=== PATIENT | female | born 1970 | race Caucasian/White ===

== ENCOUNTER → 2019-02-11 11:01 | Outpatient (CLI) | payer OTHER, SELFPAY ==
[2019-02-11 12:22] LABS: Absolute Lymphocyte Count 1.29 X10^3/ul (0.83-4.51); Absolute Neutrophil Count 3.6 X10^3/uL (2.0-7.7); Basophil# 0.02 X10^3/uL; Basophil% 0.4 % (0-1); Eosinophils% 1.9 % (0-5); Hematocrit 40.5 % (37-47); Hemoglobin 13.5 g/dl (12.0-15.0); Lymphocyte # 1.29 X10^3/ul (4.0); Lymphocyte % 24.4 % (19-41); Mean Corp Hgb Conc 33.3 g/gl (32-36); Mean Corpuscular Volume 92.9 fL (81-99); Mean Platelet Vol. 8.3 fl (6.2-12.0); Monocyte% 5.7 % (0-10); Neutrophil # 3.57 X10^3/uL (2.7-7.7); Neutrophil % 67.4 % (47-70); Platelet Count 283 K/mm3 (150-450); RBC Distribution Width CV 13.2 % (11.6-14.6); Red Blood Count 4.36 M/mm3 (4.2-5.4); White Blood Count 5.3 K/mm3 (4.4-11.0)
[2019-02-11 12:27] LABS: Erythrocyte Sedimentation Rate 13 mm/hr (0-20)
[2019-02-11 12:28] LABS: POSITIVE COUNT NO; POSITIVE DIFFERENTIAL NO; POSITIVE MORPHOLOGY NO
[2019-02-11 12:55] LABS: AST(SGOT) 18 U/L (15-37); Alanine Aminotransfer ALT/SGPT 32 U/L (13-56); Albumin, Serum 3.6 g/dL (3.2-5.0); Alkaline Phosphatase 57 U/L (45-117); Anion Gap 11 (5-15); BUN 12 mg/dL (7-18); BUN/Creat Ratio 14.1 RATIO (10-20); Calcium,Total 8.5 mg/dL (8.5-10.1); Chloride 104 mmol/L (98-107); Creatinine, Serum 0.85 mg/dL (0.55-1.02); EST Glomerular Filtration Rate 76 mL/min (>60); Est Glom Filt Rate - Afr Amer 92 mL/min (>60); Ferritin 21 ng/mL (8-252); Globulin 3.7 g/dL (2.2-4.2); Glucose 128 mg/dL (74-106); Iron 102 ug/dL (50-170); Magnesium 1.8 mg/dL (1.6-2.6); Potassium 3.7 mmol/L (3.5-5.1); Protein, Total 7.3 g/dL (6.4-8.2); Sodium Level 141 mmol/L (136-145); Thyroid Stim Hormone (TSH) 1.48 uIU/mL (0.358-3.74)
[2019-02-11 12:56] LABS: Vitamin B12 628 pg/mL (211-911); Vitamin D,25 Hydroxy 21.1 ng/mL (29.95-100.01)
[2019-02-12 13:29] LABS: ANTINUCLEAR ANTIBODIES DIRECT Negative (Negative)
== END ==
PROVIDERS: Family Provider Family Medicine; PCP Family Medicine; Referring Provider Family Medicine; Visit Provider Family Medicine
DX: G62.9 Polyneuropathy, unspecified (principal)
CPT/HCPCS: 36415; 80053; 82306; 82607; 82728; 83540; 83735; 84443; 85025; 85652; 86038

== ENCOUNTER → 2019-02-13 09:10 | Outpatient (CLI) | payer OTHER, SELFPAY ==
[2019-02-13 13:06] LABS: Cholesterol 244 mg/dL (200); High Density Lipoprotein 59 mg/dL; Triglycerides 140 mg/dL; Very Low Density Lipoprotein 28 mg/dL (5-40)
== END ==
PROVIDERS: Family Provider Family Medicine; PCP Family Medicine; Referring Provider Family Medicine; Visit Provider Family Medicine
DX: Z13.220 Encounter for screening for lipoid disorders (principal); Z13.21 Encounter for screening for nutritional disorder; Z13.1 Encounter for screening for diabetes mellitus
CPT/HCPCS: 36415; 80061

== ENCOUNTER → 2019-10-17 13:37 | Outpatient (CLI) | payer OTHER, SELFPAY ==
[2019-10-17 16:35] LABS: AST(SGOT) 19 U/L (15-37); Alanine Aminotransfer ALT/SGPT 31 U/L (13-56); Albumin, Serum 3.8 g/dL (3.2-5.0); Alkaline Phosphatase 68 U/L (45-117); Bilirubin, Direct < 0.05 mg/dL (0.00-0.30); Globulin 3.4 g/dL (2.2-4.2); Protein, Total 7.2 g/dL (6.4-8.2)
== END ==
PROVIDERS: PCP Family Medicine; Referring Provider Family Medicine; Visit Provider Family Medicine
DX: B35.1 Tinea unguium (principal)
CPT/HCPCS: 36415; 80076

== ENCOUNTER → 2020-08-11 13:48 | Outpatient (CLI) | payer OTHER, SELFPAY | PROVIDERS: PCP Family Medicine; Visit Provider Family Medicine | DX: U07.1 COVID-19 (principal) | CPT/HCPCS: 87635; U0003 ==

== ENCOUNTER 2020-12-03 09:39 | Day surgery (SDC) | payer OTHER, SELFPAY ==
[2020-11-20 13:25] VITALS: BMI 33.5
[2020-12-03] VITALS (7 sets, daily range): BP systolic 130–145; BP diastolic 72–80; PULSE 81–94; RESP 14–16; TEMP 36.5–37; O2SAT 97–100; BMI 34.9
[2020-12-03] MEDS: Lactated Ringers 1,000 ML 100 ML IV (10:18)
--- NOTE | 2020-12-03 10:46 | PCM.HP.BLA ---
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 Required: No Is patient in pain?: No Allergies No Known Allergies Allergy (Verified 11/20/20 13:26) Medications aripiprazole 10 mg tablet 10 mg PO QHS tablet 11/20/20 [History Confirmed 11/20/20] aripiprazole 5 mg tablet 5 mg PO DAILY tablet 11/20/20 [History Confirmed 11/20/20] calcium carbonate-vitamin D3 600 mg(1,500 mg)-400 unit chewable tablet tablet PO 11/20/20 [History Confirmed 11/20/20] escitalopram oxalate 10 mg tablet 10 mg PO DAILY tablet 11/20/20 [History Confirmed 11/20/20] quetiapine 100 mg tablet 100 mg PO DAILY tablet 11/20/20 [History Confirmed 11/20/20] PFSH Medical History Positive colorectal cancer screening using Cologuard test (Acute) Surgical History Hx of fracture of arm (Acute) History of (Acute) Family History Father Heart disease Hypertension Mother Hypertension Heart disease Social History (Updated 11/20/20 @ 15:[address] Frankie Angeles MD) Smoking Status: Never smoker second hand exposure: No alcohol intake: never substance use type: does not use caffeine: Yes what type of physical activity do you participate in: walking frequency: 3-4 times per week HPI HPI HPI: KARMA REN, is a 49 F who presents to the office today for HPI HPI Surgical H&P: Yes HPI: KARMA REN, is a 49 F who presents to the office today for colonoscopy consultation due to positive Cologuard. The patient has never had a colonoscopy and reports no blood in her stool or abdominal pain. Patient denies family history of colon cancer. ROS General General: Yes fatigue; no weight change, appetite, colon cancer, breast cancer or weakness HEENT HEENT: Yes difficulty swallowing; no eye injury, eye surgery, swollen glands or hoarseness Endo Endocrine: No thyroid disease, diabetes mellitus, thyroid cancer, Hair loss, heat intolerance or cold intolerance Skin Skin: No rash or changing moles Breast Breast: No left breast lump, right breast lump, nipple discharge, breast pain, abnormal mammogram, abnormal US or breast enlargement Musc Musculoskeletal: No back problems, arthritis, rheumatoid arthritis, gout or joint pain Cardio Cardiovascular: No murmur, pacemaker, heart disease, atrial fibrillation, high blood pressure, heart attack, heart stent, palpitations, shortness of breat with exertion or chest pain Psych Psychiatric: Yes anxiety; no depression or hearing voices Resp Respiratory: No shortness of breath, No sleep apnea, No cough, No COPD, No asthma, No emphysema, No wheezing Gastro Gastrointestinal: No abdominal pain, No nausea or vomiting, No diarrhea, No constipation, No blood in stool, No acid reflux, No hemorrhoids, No ulcers, No gallbladder problem, No black,tarry stools Layo Hematologic: No blood thinners, No blood disorders, No bleeding, No anemia, No blood clots Neuro Neurologic: No system reviewed and no additional complaints, except as docu, No as per HPI, No abnormal walking, No abnormal hearing, No abnormal movements, No abnormal speech, No behavioral changes, No burning sensations, No confusion, No seizure-like activity, No unsteadiness, No dizziness, No localized weakness, No frequent falls, No headache(s), No lack of coordination, No loss of vision, No memory loss, No numbness, No other visual disturbances, No radiating pain, No restless legs, No sensory deficit, No fainting, No tingling, No tremor(s), No weakness, No other Exam Const General: cooperative Orientation: alert, oriented x3 Chest Breast Palpation: No nipple discharge Resp Effort & Inspection: normal respiratory effort Auscultation: clear to auscultation bilaterally Cardio Rate: regular rate Rhythm: regular rhythm Heart Sounds: no murmurs GI Inspection: non-distended Palpation: soft, nontender Assessment & Plan Problems 1. Positive colorectal cancer screening using Cologuard test R19.5 Plan I explained endoscopy in detail to the patient. I explained the risks including but not limited to stroke or heart attack with anesthesia, perforation of the GI tract, bleeding, infection. I explained that any of these could necessitate further emergency surgery. The patient understands and all questions were answered sufficiently. The patient wishes to proceed with procedure. Frankie Angeles MD Pager: [facility] [address] [place] [address] [address] [place] [address] Office: I have re-examined the patient. There are no clinical changes since date of exam.
--- NOTE | 2020-12-03 11:15 | OP.COLON_ITS ---
Patient Name: Rupert Kapoor Procedure Date: 12/03/2020 10:48 AM Date of : 1970 Age: 49 Procedure: Colonoscopy Indications: Positive Cologuard test Providers: Frankie Angeles MD Referring MD: Zion Del Toro Medicines: Monitored Anesthesia Care Patient Profile: This is a 49 year old female. Refer to note in patient chart for documentation of history and physical. Last Colonoscopy: none. The patient's first colonoscopy is today. Complications: No immediate complications. Procedure: Pre-Anesthesia Assessment: - Prior to the procedure, a History and Physical was performed, and patient medications and allergies were reviewed. The patient's tolerance of previous anesthesia was also reviewed. The risks and benefits of the procedure and the sedation options and risks were discussed with the patient. All questions were answered, and informed consent was obtained. Prior Anticoagulants: The patient has taken no previous anticoagulant or antiplatelet agents. After reviewing the risks and benefits, the patient was deemed in satisfactory condition to undergo the procedure. After I obtained informed consent, the scope was passed under direct vision. Throughout the procedure, the patient's blood pressure, pulse, and oxygen saturations were monitored continuously. The colonoscope was introduced through the anus and advanced to the cecum, identified by appendiceal orifice and ileocecal valve. The colonoscopy was performed without difficulty. The patient tolerated the procedure well. The quality of the bowel preparation was good. Scope In: 10:55:07 AM Scope Withdrawal Time 0 hours 7 minutes 4 seconds Scope Out: 11:11:56 AM Total Procedure Duration Time 0 hours 16 minutes 49 seconds Findings: Multiple small-mouthed diverticula were found in the sigmoid colon. The exam was otherwise without abnormality on direct and retroflexion views. Impression: - Diverticulosis in the sigmoid colon. - The examination was otherwise normal on direct and retroflexion views. - No specimens collected. Recommendation: - Discharge patient to home. - Resume previous diet. - Continue present medications. - Repeat colonoscopy in 10 years for screening purposes. Procedure Code(s): --- Professional --- 47766, Colonoscopy, flexible; diagnostic, including collection of specimen(s) by brushing or washing, when performed (separate procedure) Diagnosis Code(s): --- Professional --- R19.5, Other fecal abnormalities K57.30, Diverticulosis of large intestine without perforation or abscess without bleeding CPT copyright 2017 [employer]. All rights reserved. The codes documented in this report are preliminary and upon retail store associate review may be revised to meet current compliance requirements. Frankie Angeles MD 12/03/2020 11:15:13 AM This report has been signed electronically. Number of Addenda: 0 Note Initiated On: 12/03/2020 10:48 AM
--- NOTE | 2020-12-03 11:15 | OP.CCLET_ITS ---
12/03/2020 Zion Del Toro [address] [place] [address] Re : Colonoscopy procedure for [facility] Dear Dr. Del Toro This procedure was performed on December. My impressions and recommendations are as follows: Impressions : - Diverticulosis in the sigmoid colon. - The examination was otherwise normal on direct and retroflexion views. - No specimens collected. Recommendations : - Discharge patient to home. - Resume previous diet. - Continue present medications. - Repeat colonoscopy in 10 years for screening purposes. My findings are described in the full procedure note, which is enclosed. If I can be of further assistance, please feel free to contact me at Doctor phone number(s): , Work: . Sincerely, Frankie Angeles MD 12/03/2020 11:15:13 AM This report has been signed electronically.
== END 2020-12-03 12:07 | disposition home or self-care (01) ==
LOC: EN 09:39 → AC 09:40
PROVIDERS: PCP Family Medicine; Referring Provider Family Medicine; Visit Provider Surgery
PROC: 0DJD8ZZ Inspection of Lower Intestinal Tract, Via Natural or Artificial Opening Endoscopic (ICD-10-PCS; CPT 45378; principal; 2020-12-03 10:40)
DX: R19.5 Other fecal abnormalities (principal); K57.30 Diverticulosis of large intestine without perforation or abscess without bleeding
CPT/HCPCS: 45378; 87426; C9803; J7120; J2405

== ENCOUNTER → 2021-02-23 10:18 | Outpatient (CLI) | payer OTHER, SELFPAY ==
[2020-12-03 10:05] VITALS: BMI 34.9
[2021-02-23 13:06] LABS: Anion Gap 6 (5-15); BUN 12 mg/dL (7-18); BUN/Creat Ratio 11.9 RATIO (10-20); Calcium,Total 8.6 mg/dL (8.5-10.1); Chloride 105 mmol/L (98-107); Cholesterol 268 mg/dL (200); Creatinine, Serum 1.01 mg/dL (0.55-1.02); EST Glomerular Filtration Rate 62 mL/min (>60); Est Glom Filt Rate - Afr Amer 75 mL/min (>60); Glucose 88 mg/dL (74-106); High Density Lipoprotein 48 mg/dL; Potassium 3.9 mmol/L (3.5-5.1); Sodium Level 137 mmol/L (136-145); Thyroid Stim Hormone (TSH) 2.42 uIU/mL (0.358-3.74); Triglycerides 295 mg/dL; Very Low Density Lipoprotein 59 mg/dL (5-40)
[2021-02-23 13:07] LABS: Vitamin D,25 Hydroxy 45.8 ng/mL
== END ==
PROVIDERS: PCP Family Medicine; Referring Provider Family Medicine; Visit Provider Family Medicine
DX: E55.9 Vitamin D deficiency, unspecified (principal); E78.5 Hyperlipidemia, unspecified; Z13.29 Encounter for screening for other suspected endocrine disorder
CPT/HCPCS: 36415; 80048; 80061; 82306; 84443

== ENCOUNTER → 2021-03-01 18:08 | Outpatient (CLI) | payer OTHER, SELFPAY ==
[2020-12-03 10:05] VITALS: BMI 34.9
== END ==
PROVIDERS: Visit Provider Family Medicine
DX: Z20.828 Contact with and (suspected) exposure to other viral communicable diseases (principal)
CPT/HCPCS: 87635; U0005; U0003

== ENCOUNTER 2021-12-15 07:39 | Outpatient (CLI) | payer OTHER, SELFPAY ==
--- NOTE | 2021-12-15 07:55 | RAD_ITS ---
STUDY: X-RAY - ESOPHAGUS (BARIUM SWALLOW) WITH FLUOROSCOPY REASON FOR EXAM: Female, 50 years old. DYSPHAGIA TECHNIQUE: 18 view(s) of the esophagus were obtained following swallowing of barium. FLUOROSCOPY TIME (if supplied): (36 seconds) minutes/seconds COMPARISON: None. FINDINGS: There is no demonstrated esophageal foreign body. There is no demonstrated stricture or mucosal abnormality. Normal gastroesophageal junction, without a demonstrated hiatal hernia. The patient ingested a 12 mm tablet of barium without any difficulty. Normal visualized aortic arch and descending thoracic aorta. Normal visualized pulmonary parenchyma. Normal visualized osseous structures of the thorax. RAD/Esophagus Dual Contrast IMPRESSION: Normal plain film x-ray examination (barium swallow) of the esophagus. Electronically Signed: John Swann MD at 10:21 EDT ,
== END 2021-12-15 23:59 | disposition home or self-care (01) ==
LOC: RAD 07:39
PROVIDERS: PCP Family Medicine; Visit Provider Family Medicine
DX: R13.10 Dysphagia, unspecified (principal)
CPT/HCPCS: 74221

== ENCOUNTER → 2022-03-21 | Outpatient (CLI) | payer OTHER, SELFPAY ==
[2022-03-21 16:14] LABS: AST(SGOT) 25 U/L (15-37); Alanine Aminotransfer ALT/SGPT 40 U/L (13-56); Albumin, Serum 3.7 g/dL (3.2-5.0); Alkaline Phosphatase 64 U/L (45-117); Anion Gap 11 (5-15); BUN 9 mg/dL (7-18); BUN/Creat Ratio 9.7 RATIO (10-20); Calcium,Total 8.6 mg/dL (8.5-10.1); Chloride 100 mmol/L (98-107); Cholesterol 254 mg/dL (200); Creatinine, Serum 0.93 mg/dL (0.55-1.02); EST Glomerular Filtration Rate 68 mL/min (>60); Est Glom Filt Rate - Afr Amer 82 mL/min (>60); Globulin 3.6 g/dL (2.2-4.2); Glucose 90 mg/dL (74-106); High Density Lipoprotein 45 mg/dL; Protein, Total 7.3 g/dL (6.4-8.2); Sodium Level 138 mmol/L (136-145); Thyroid Stim Hormone (TSH) 2.03 uIU/mL (0.358-3.74); Triglycerides 176 mg/dL; Very Low Density Lipoprotein 35 mg/dL (5-40)
[2022-03-21 22:50] LABS: Vitamin D,25 Hydroxy 59.8 ng/mL
== END | disposition home or self-care (01) ==
LOC: MFPLAB 11:55
PROVIDERS: PCP Family Medicine; Visit Provider Family Medicine
DX: E55.9 Vitamin D deficiency, unspecified (principal); E78.5 Hyperlipidemia, unspecified
CPT/HCPCS: 36415; 80053; 80061; 82306; 84443

== ENCOUNTER → 2022-12-16 | Outpatient (CLI) | payer OTHER, SELFPAY ==
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
== END | disposition home or self-care (01) ==
LOC: RAD 12:48
PROVIDERS: PCP Family Medicine; Referring Provider Family Medicine; Visit Provider Family Medicine
DX: R13.10 Dysphagia, unspecified (principal)
CPT/HCPCS: 74230; 92611

== ENCOUNTER → 2023-02-10 | Outpatient (CLI) | payer OTHER, SELFPAY ==
[2023-02-10 11:49] LABS: Anion Gap 8 (5-15); BUN 14 mg/dL (7-18); BUN/Creat Ratio 13.3 RATIO (10-20); Calcium,Total 9.2 mg/dL (8.5-10.1); Chloride 99 mmol/L (98-107); Cholesterol 244 mg/dL (200); Creatinine, Serum 1.05 mg/dL (0.55-1.02); EST Glomerular Filtration Rate 59 mL/min (>60); Est Glom Filt Rate - Afr Amer 71 mL/min (>60); Glucose 81 mg/dL (74-106); High Density Lipoprotein 60 mg/dL; Potassium 3.6 mmol/L (3.5-5.1); Sodium Level 136 mmol/L (136-145); Triglycerides 243 mg/dL; Very Low Density Lipoprotein 49 mg/dL (5-40)
== END | disposition home or self-care (01) ==
LOC: MFPLAB 08:18
PROVIDERS: PCP Family Medicine; Visit Provider Family Medicine
DX: E78.5 Hyperlipidemia, unspecified (principal)
CPT/HCPCS: 36415; 80048; 80061

== ENCOUNTER → 2023-04-26 | Outpatient (CLI) | payer OTHER, SELFPAY ==
--- NOTE | 2023-04-26 17:23 | RAD_ITS ---
STUDY: X-RAY - RIGHT KNEE REASON FOR EXAM: Female, 52 years old. Pain and swelling. TECHNIQUE: 4 view(s) of the knee. COMPARISON: None. FINDINGS: Normal visualized distal femur. Normal visualized proximal tibia and fibula. Normal proximal tibiofibular articulation. Mild medial compartmental arthrosis. Normal lateral femorotibial compartment. Mild arthrosis of the lateral femorotibial compartment. Large joint effusion. RAD/Knee 4 or More Views IMPRESSION: Medial and lateral femorotibial compartment arthrosis with large suprapatellar joint effusion. Electronically Signed: Mark Beaver MD at 16:09 EDT ,
== END | disposition home or self-care (01) ==
PROVIDERS: PCP Family Medicine; Referring Provider Family Medicine; Visit Provider Family Medicine
DX: M25.569 Pain in unspecified knee (principal)
CPT/HCPCS: 73564

== ENCOUNTER → 2023-05-30 | Outpatient (CLI) | payer OTHER, SELFPAY ==
[2023-05-30 17:02] LABS: Bacteria 0 SEEN /hpf (None Seen); Mucous, Urine 0 SEEN /hpf (<or=2+); Red Blood Cells-Urine 0 SEEN /hpf (0-5); Squamous Epithelial Cells - UA 0 SEEN /hpf (5-10); White Blood Cells 0 SEEN /hpf (0-5)
[2023-05-30 17:32] LABS: Absolute Lymphocyte Count 1.67 X10^3/uL (0.83-4.51); Absolute Neutrophil Count 2.7 X10^3/uL (2.0-7.7); Basophil# 0.02 X10^3/uL; Basophil% 0.4 % (0-1); Eosinophil# 0.08 X10^3/uL; Eosinophils% 1.6 % (0-5); Hematocrit 34.8 % (37-47); Lymphocyte # 1.67 X10^3/ul (0.83-4.51); Lymphocyte % 33.4 % (19-41); Mean Corp Hgb Conc 31.6 g/dL (32-36); Mean Corpuscular Hgb 29.9 pg (27.0-32.0); Mean Corpuscular Volume 94.6 fL (81-99); Monocyte# 0.48 X10^3/uL; Monocyte% 9.6 % (0-10); NRBC Flagged by Analyzer 0 % (0-5); Neutrophil # 2.74 X10^3/uL (2.7-7.7); Neutrophil % 54.8 % (47-70); Platelet Count 373 K/mm3 (150-450); RBC Distribution Width CV 12.8 % (11.6-14.6); RBC Distribution Width SD 44.3 fl (35.1-43.9); Red Blood Count 3.68 M/mm3 (4.2-5.4)
[2023-05-30 17:33] LABS: Color, Urine Yellow (Yellow); Glucose, Dipstick Normal (Normal); Ketone-Dipstick Negative (Negative); Leukocyte Esterase-Dipstick Negative /ul (Negative); Nitrite-Dipstick Negative (Negative); Occult Blood-Urine 50 /ul (Negative); Protein-Dipstick Negative (Negative); Urine Bilirubin Dipstick Negative (Negative); Urine Clarity Clear (Clear); Urine Urobilinogen Normal (Normal); Urine pH 6.5 (5.0 - 8.0)
[2023-05-30 18:28] LABS: ALB/GLOB Ratio 1.1 RATIO (0.9-2.4); AST(SGOT) 30 U/L (15-37); Alanine Aminotransfer ALT/SGPT 41 U/L (13-56); Albumin, Serum 3.6 g/dL (3.2-5.0); Alkaline Phosphatase 59 U/L (45-117); Anion Gap 6 (5-15); BUN 13 mg/dL (7-18); BUN/Creat Ratio 13.1 RATIO (10-20); Calcium,Total 8.3 mg/dL (8.5-10.1); Chloride 105 mmol/L (98-107); EST Glomerular Filtration Rate 62 mL/min (>60); Est Glom Filt Rate - Afr Amer 75 mL/min (>60); Globulin 3.3 g/dL (2.2-4.2); Glucose 91 mg/dL (74-106); Potassium 3.7 mmol/L (3.5-5.1); Protein, Total 6.9 g/dL (6.4-8.2); Sodium Level 139 mmol/L (136-145); Thyroid Stim Hormone (TSH) 2.17 uIU/mL (0.358-3.74)
[2023-05-31 10:48] LABS: Ferritin 8 ng/mL (8-252); Iron 36 ug/dL (50-170)
== END | disposition home or self-care (01) ==
LOC: MTLAB 16:59
PROVIDERS: PCP Family Medicine; Referring Provider Family Medicine; Visit Provider Family Medicine
DX: E55.9 Vitamin D deficiency, unspecified (principal); R60.9 Edema, unspecified; I10 Essential (primary) hypertension
CPT/HCPCS: 36415; 80053; 81001; 82728; 83540; 84443; 85025

== ENCOUNTER → 2023-06-14 | Outpatient (CLI) | payer OTHER, SELFPAY ==
--- NOTE | 2023-06-14 17:21 | RAD_ITS ---
INDICATION: pain. forefoot. EXAMINATION/TECHNIQUE: X-RAY - LEFT XR Foot 3 VIEWS COMPARISON: FINDINGS: SOFT TISSUES: No soft tissue swelling or gas. No radiopaque foreign body. BONES/JOINTS: No acute fracture or subluxation.. Normal alignment. Preservation of the joint space.. No sclerotic or destructive changes observed. RAD/Foot min 3 Views IMPRESSION: No acute bony injury. Electronically Signed: Luis Alfaro DO at 18:16 EDT ,
== END | disposition home or self-care (01) ==
PROVIDERS: PCP Family Medicine; Referring Provider Family Medicine; Visit Provider Family Medicine
DX: M77.42 Metatarsalgia, left foot (principal)
CPT/HCPCS: 73630

== ENCOUNTER → 2023-06-23 | Outpatient (CLI) | payer OTHER, SELFPAY ==
[2023-06-23 17:38] LABS: Absolute Lymphocyte Count 1.83 X10^3/uL (0.83-4.51); Absolute Neutrophil Count 5.2 X10^3/uL (2.0-7.7); Basophil# 0.05 X10^3/uL; Basophil% 0.6 % (0-1); Eosinophil# 0.06 X10^3/uL; Eosinophils% 0.8 % (0-5); Hemoglobin 12.4 g/dL (12.0-15.0); Lymphocyte # 1.83 X10^3/ul (0.83-4.51); Lymphocyte % 23.6 % (19-41); Mean Corpuscular Hgb 29.5 pg (27.0-32.0); Mean Platelet Vol. 8.6 fl (6.2-12.0); Monocyte# 0.64 X10^3/uL; Monocyte% 8.2 % (0-10); NRBC Flagged by Analyzer 0 % (0-5); Neutrophil # 5.16 X10^3/uL (2.7-7.7); Neutrophil % 66.5 % (47-70); Platelet Count 374 K/mm3 (150-450); RBC Distribution Width CV 14.2 % (11.6-14.6); RBC Distribution Width SD 49.3 fl (35.1-43.9); Red Blood Count 4.21 M/mm3 (4.2-5.4); White Blood Count 7.8 K/mm3 (4.4-11.0)
[2023-06-23 18:07] LABS: Ferritin 24 ng/mL (8-252); Iron 100 ug/dL (50-170)
== END | disposition home or self-care (01) ==
LOC: MTLAB 14:15
PROVIDERS: PCP Family Medicine; Referring Provider Family Medicine; Visit Provider Family Medicine
DX: E55.9 Vitamin D deficiency, unspecified (principal); D64.9 Anemia, unspecified
CPT/HCPCS: 36415; 82728; 83540; 85025

== ENCOUNTER 2023-07-28 08:00 | Outpatient (RCR) | payer OTHER, SELFPAY ==
--- NOTE | 2023-05-04 18:01 | HP.PTEVAL_ITS ---
Patient's Visit Information Visit Information Visit Information: KARMA REN is a 52 year old F referred to Physical Therapy by Dr. Zion Del Toro MD with a diagnosis of RIGHT KNEE PAIN ,PES ASERINE ,SUPRAPATELLAR. Date of Evaluation: 05/04/23 Physical Therapist: Cornelio Morales, PT, Cert MDT, OCS Visit Plan Frequency: 2x /Week Duration: 4 Weeks Plan: PT INTERVENTIONS ROM/FLEXABLITY ,STRENGTHENING QIADS/HAMS/HIP ,FUNCTIONAL STRENGTHNEING AND MODALTIES Subjective Subjective: This 52 y/o female presents to physical therapy with right knee pain . Patient has had knee pain ~ 3 weeks and April [address] and unable to place any pressure or walk. Patient has had edema in knee 3weeks. Patient had to use crutches for ~ 1week . Patient weaned from crutches. Patient seen DR x-rays meloxicam and provided prednisone due to swelling. May try MRI if doesn't get better. Patient did not having looking or catching in knee. Aggravating unable to squat and kneeling ,extending walking ,stairs one step at time. Alleviating ice elevated and medication ,brace . Denies paresthesia/tingling in left leg. Pain described as ache affects sleeping. Patient pain affects ADLS ,housework and job demands. Patient goals to decrease pain. 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 SOCIAL: Pain Right Knee: Pain Intensity (Out of 10): 8 Pain Intensity Range: 10 Objective Objective: POSTURE: mild forward posture knee slightly flexed NEURO: denies paresthesia/tingling PALAPTION: joint line tenderness medial EFFUSION: mild effusion global knee FLEXABLITY: hamstrings min tight AROM: 0-110 supine knee flexion MMT: peak force-quads 22.1,hamstrings 21.8 ,hip abduction 23.8 GAIT: ambulates with reciprocal pattern decrease stance right side STAIRS: one step at time Special Tests R Knee Colt - Meniscus: Negative R Knee Apley - Meniscus: Negative R Knee Anterior Drawer - ACL: Negative R Knee Posterior Drawer - PCL: Negative R Knee Valgus - MCL: Negative R Knee Varus - LCL: Negative R Knee Patellar Apprehension - PFS: Positive R Knee Patellar Grind - PFS: Negative Comments: hyperflexion OP pain Balance/Special Test Scores Lower Extremity Functional Score: 36 Goals Goal 1:: Patient to be I with HEP knee Goal Time Frame: 4-6 Weeks Goal 2:: Patient to improve AROM knee flexion 130 degrees to alternate with steps Goal Time Frame: 4-6 Weeks Goal 3:: Patient to improve peak force quads/hams/hip by 5-10 # to improve function Goal Time Frame: 4-6 Weeks Goal 4:: Patient to improve LFES score by 10 points to improve QOL and function Goal Time Frame: 4-6 Weeks Goal 5:: Patient to demonstrate 50% improvement with increase function and ADLS Goal Time Frame: 4-6 Weeks Rehabilitation Potential Physical Therapy Diagnosis: This patient has right knee pain with edema ,pain ,decrease ROM ,and strength impairs gait and function thus benefit from skilled PT Rehabilitation Potential: Good Anticipated Interventions Patient/Client Instruction: Educate patient on: Condition and Plan of Care For the Purpose of:: To decrease pain, To increase ROM, To improve muscle performance and motor function, To improve ability to perform ADL's, To increase tolerance to activity/condition/position, To improve performance and independence with ADL's, To improve ability of physical actions for home/community/work/leisure, To improve health of tissue, To decrease soft tissue restriction, To increase flexibility/ROM and To improve endurance Therapeutic Exercise to Include: Strength training, Endurance training, Balance training, Flexibilty training and Active ROM Comment: QUADS/HAMS/HIP For the Purpose of:: To decrease pain, To increase ROM, To improve muscle performance and motor function, To improve ability to perform ADL's, To increase tolerance to activity/condition/position, To improve ability of physical actions for home/community/work/leisure, To improve health of tissue, To decrease soft tissue restriction, To increase flexibility/ROM and To prevent re-injury TENS: Yes IF ES: Yes Cryotherapy (ice pack, ice massage): Yes Thermo therapy (hot pack): Yes Ultrasound (thermal/non thermal): Yes For the Purpose of:: To decrease pain, To decrease swelling/inflammation, To increase ROM, To improve health of tissue, To decrease soft tissue restriction and To increase flexibility/ROM Text: Thank you for the opportunity to evaluate your patient. For Medicare and Medicare HMO plans, please review the plan of care and approve it. It will need to be FAXED BACK to us at [phone] for Medicare purposes. For Medicare only, by signing this I certify the plan of care. Please let me know if there are questions or concerns regarding this plan of care. Physician Signature: Date:
--- NOTE | 2023-07-28 08:21 | HP.PTDCSUM_ITS ---
Discharge Summary D/C summary: It has been my pleasure to treat KARMA REN referred by Dr. Zion Del Toro MD, with the diagnosis of RIGHT KNEE PAIN ,PES ASERINE ,SUPRAPATELLAR for a total of 24 visit(s). Discharge Date: 07/28/23 Please see the following information for a summary of their discharge status. Subjective Subjective: Doing good.. Ready for d/c Pain Right Knee: Pain Intensity (Out of 10): 0 Overall Improvement % Improvement: 100 Objective Objective/Function: POSTURE: mild forward posture knee slightly flexed NEURO: denies paresthesia/tingling PALAPTION: joint line tenderness medial EFFUSION: mild effusion global knee FLEXABLITY: hamstrings min tight AROM: 0-135 supine knee flexion MMT: peak force-quads 65.4,hamstrings 50.1 ,hip abduction 30.8 GAIT: ambulates with reciprocal pattern STAIRS: alternating steps Goals Goal 1:: Patient to be I with HEP knee Goal Progress: Goal Met Goal 2:: Patient to improve AROM knee flexion [address] eps Goal Progress: Goal Met Goal 3:: Patient to improve peak force quads/hams/hip by 5-10 # to improve function Goal Progress: Goal Met Goal 4:: Patient to improve LFES score by 10 points to improve QOL and function Goal Progress: Goal Met Goal 5:: Patient to demonstrate 50% improvement with increase function and ADLS Goal Progress: Goal Met Plan Plan: D/C TO HEP D/C Information Discharge Comments: HEP d/c sentence: If there are questions or concerns regarding this patient's physical therapy, please feel free to call me at [phone]. Thank you for the referral of this patient. Sincerely, Cornelio Morales, PT, Cert MDT, OCS Balance/Gait/Functional tests Balance/Special Test Scores Lower Extremity Functional Score: 36 Improvement % Improvement: 100
== END 2023-07-28 10:09 | disposition home or self-care (01) ==
LOC: PT 08:00
PROVIDERS: PCP Family Medicine; Referring Provider Family Medicine; Visit Provider Family Medicine
DX: M25.561 Pain in right knee (principal)
CPT/HCPCS: 97014; 97110; 97162; 97530; G0283

== ENCOUNTER → 2023-12-11 | Outpatient (CLI) | payer OTHER, SELFPAY ==
[2023-12-11 12:56] LABS: Vitamin D,25 Hydroxy 65.4 ng/mL
[2023-12-11 13:01] LABS: Anion Gap 6 (5-15); BUN 16 mg/dL (7-18); BUN/Creat Ratio 15.1 RATIO (10-20); Calcium,Total 9.6 mg/dL (8.5-10.1); Chloride 101 mmol/L (98-107); Cholesterol 292 mg/dL (200); Creatinine, Serum 1.06 mg/dL (0.55-1.02); EST Glomerular Filtration Rate 58 mL/min (>60); Est Glom Filt Rate - Afr Amer 70 mL/min (>60); Ferritin 12 ng/mL (8-252); Glucose 97 mg/dL (74-106); High Density Lipoprotein 55 mg/dL; Iron 98 ug/dL (50-170); Potassium 3.8 mmol/L (3.5-5.1); Sodium Level 136 mmol/L (136-145); Triglycerides 191 mg/dL; Very Low Density Lipoprotein 38 mg/dL (5-40)
== END | disposition home or self-care (01) ==
LOC: MFPLAB 10:34
PROVIDERS: PCP Family Medicine; Visit Provider Family Medicine
DX: D64.9 Anemia, unspecified (principal); I10 Essential (primary) hypertension; E55.9 Vitamin D deficiency, unspecified
CPT/HCPCS: 36415; 80048; 80061; 82306; 82728; 83540

== ENCOUNTER → 2024-06-04 | Outpatient (CLI) | payer OTHER, SELFPAY ==
[2024-06-04 16:41] LABS: Mucous, Urine 0 SEEN /hpf (<or=2+)
[2024-06-04 17:53] LABS: Hematocrit 36.5 % (37-47); Hemoglobin 11.9 g/dL (12.0-15.0); Mean Corp Hgb Conc 32.6 g/dL (32-36); Mean Corpuscular Volume 91.9 fL (81-99); Mean Platelet Vol. 8.3 fl (6.2-12.0); Platelet Count 383 K/mm3 (150-450); RBC Distribution Width CV 13.3 % (11.6-14.6); RBC Distribution Width SD 45.5 fl (35.1-43.9); Red Blood Count 3.97 M/mm3 (4.2-5.4); White Blood Count 6.4 K/mm3 (4.4-11.0)
[2024-06-04 17:56] LABS: Color, Urine Yellow (Yellow); Glucose, Dipstick Normal (Normal); Ketone-Dipstick Negative (Negative); Leukocyte Esterase-Dipstick Negative /ul (Negative); Nitrite-Dipstick Negative (Negative); Occult Blood-Urine 10 /ul (Negative); Protein-Dipstick Negative (Negative); Specific Gravity, Urine 1.015 (1.002-1.030); Urine Bilirubin Dipstick Negative (Negative); Urine Clarity Clear (Clear); Urine Urobilinogen Normal (Normal); Urine pH 6.5 (5.0 - 8.0)
[2024-06-04 18:19] LABS: Bacteria RARE /hpf (None Seen)
[2024-06-04 18:21] LABS: Red Blood Cells-Urine 0-5 SEEN /hpf (0-5); Squamous Epithelial Cells - UA 5-10 SEEN /hpf (5-10); White Blood Cells 0-5 SEEN /hpf (0-5)
[2024-06-04 18:40] LABS: Anion Gap 6 (5-15); BUN 16 mg/dL (7-18); BUN/Creat Ratio 14.3 RATIO (10-20); Calcium,Total 9.5 mg/dL (8.5-10.1); Chloride 100 mmol/L (98-107); Creatinine, Serum 1.12 mg/dL (0.55-1.02); EST Glomerular Filtration Rate 54 mL/min (>60); Est Glom Filt Rate - Afr Amer 65 mL/min (>60); Glucose 89 mg/dL (74-106); Potassium 3.8 mmol/L (3.5-5.1); Sodium Level 136 mmol/L (136-145)
== END | disposition home or self-care (01) ==
LOC: MTLAB 16:36
PROVIDERS: PCP Family Medicine; Referring Provider Family Medicine; Visit Provider Family Medicine
DX: R60.9 Edema, unspecified (principal)
CPT/HCPCS: 36415; 80048; 81001; 84443; 85027

== ENCOUNTER → 2024-06-18 | Outpatient (CLI) | payer OTHER, SELFPAY ==
[2024-06-18 18:06] LABS: Anion Gap 6 (5-15); BUN 12 mg/dL (7-18); BUN/Creat Ratio 10.4 RATIO (10-20); Calcium,Total 9.3 mg/dL (8.5-10.1); Chloride 100 mmol/L (98-107); Creatinine, Serum 1.15 mg/dL (0.55-1.02); EST Glomerular Filtration Rate 52 mL/min (>60); Est Glom Filt Rate - Afr Amer 63 mL/min (>60); Glucose 93 mg/dL (74-106); Potassium 3.6 mmol/L (3.5-5.1); Sodium Level 136 mmol/L (136-145)
== END | disposition home or self-care (01) ==
LOC: MFPLAB 16:14
PROVIDERS: PCP Family Medicine; Visit Provider Family Medicine
DX: R60.9 Edema, unspecified (principal)
CPT/HCPCS: 36415; 80048

== ENCOUNTER → 2025-04-08 | Outpatient (CLI) | payer OTHER, SELFPAY ==
[2025-04-08 10:54] LABS: Mucous, Urine 0 SEEN /hpf (<or=2+); Red Blood Cells-Urine 0 SEEN /hpf (0-5); Squamous Epithelial Cells - UA 0 SEEN /hpf (5-10)
[2025-04-08 12:35] LABS: Color, Urine Straw (Yellow); Glucose, Dipstick Normal (Normal); Ketone-Dipstick Negative (Negative); Leukocyte Esterase-Dipstick Negative /ul (Negative); Nitrite-Dipstick Negative (Negative); Occult Blood-Urine 25 /ul (Negative); Protein-Dipstick Negative (Negative); Specific Gravity, Urine 1.005 (1.002-1.030); Urine Bilirubin Dipstick Negative (Negative)
[2025-04-08 12:51] LABS: Hematocrit 38.9 % (37-47); Hemoglobin 12.4 g/dL (12.0-15.0); Immature Granulocytes Count 0.070 X10^3/uL (0.0-0.0); Mean Corp Hgb Conc 31.9 g/dL (32-36); Mean Corpuscular Volume 86.1 fL (81-99); Mean Platelet Vol. 8.8 fl (6.2-12.0); NRBC Flagged by Analyzer 0 % (0-5); POSITIVE MORPHOLOGY YES; Platelet Count 246 K/mm3 (150-450); RBC Distribution Width CV 16.9 % (11.6-14.6); RBC Distribution Width SD 52.6 fl (35.1-43.9); Red Blood Count 4.52 M/mm3 (4.2-5.4); White Blood Count 5.6 K/mm3 (4.4-11.0)
[2025-04-08 12:57] LABS: Differential Indicated SCAN CRITERIA MET
[2025-04-08 13:16] LABS: AST(SGOT) 290 U/L (<=31); Alanine Aminotransfer ALT/SGPT 469 U/L (<=34); Albumin, Serum 4.3 g/dL (3.5-5.0); Alkaline Phosphatase 190 U/L (35-104); Anion Gap 14 (5-15); BUN 13 mg/dL (4-19); BUN/Creat Ratio 12.5 RATIO (10-20); CORTISOL AM 17.10 ug/dL (6.02-18.40); Calcium,Total 9.6 mg/dL (7.6-11.0); Carbon Dioxide 25.8 mmol/L (21.0-32.0); Chloride 98 mmol/L (98-108); Cholesterol 245 mg/dL (<=200); Ferritin 97 ng/mL (22-378); Follicle Stimulating Hormone 35.2 mIU/mL; Globulin 3.5 g/dL (2.2-4.2); Glucose 98 mg/dL (70-99); Low Density Lipoprotein Calc. 162 mg/dL; Potassium 3.8 mmol/L (3.3-5.1); Triglycerides 193 mg/dL; Very Low Density Lipoprotein 39 mg/dL (5-40); Vitamin B12 1747 pg/mL (180-914); Vitamin D,25 Hydroxy 97.2 ng/mL (30-100); cholesterol:hdl ratio screen 5.57
[2025-04-08 13:38] LABS: CRP 12.50 mg/L (0.0-3.0)
[2025-04-08 13:53] LABS: Iron 73 ug/dL (50-170)
[2025-04-09 14:08] LABS: ANTINUCLEAR ANTIBODIES DIRECT Negative (Negative)
== END | disposition home or self-care (01) ==
LOC: MFPLAB 10:08
PROVIDERS: PCP Family Medicine; Referring Provider Family Medicine; Visit Provider Family Medicine
DX: R31.9 Hematuria, unspecified (principal); R74.8 Abnormal levels of other serum enzymes; M25.50 Pain in unspecified joint; D64.9 Anemia, unspecified; R23.2 Flushing; E78.5 Hyperlipidemia, unspecified
CPT/HCPCS: 36415; 80053; 80061; 81001; 82306; 82533; 82607; 82728; 82977; 83001; 83002; 83540; 84443; 85025; 85652; 86038; 86140

== ENCOUNTER → 2025-04-12 | Outpatient (CLI) | payer OTHER, SELFPAY ==
--- NOTE | 2025-04-12 07:34 | US_ITS ---
PROCEDURE: ABDOMEN LIMITED 04/12/2025 REASON FOR EXAM: ELEVATED LIVER ENZYMES COMPARISON: None FINDINGS: Liver: Diffusely echogenic suggesting fatty infiltration. Mild hepatomegaly. The liver measures 18.7 cm. Gallbladder: No stones sludge wall thickening or tenderness. Common bile duct: Normal measuring 3.1 mm . Pancreas: Normal Other: Visualized portions of the right kidney are unremarkable. No right upper quadrant ascites. US/Abdomen Limited IMPRESSION: Fatty infiltration of the liver. Mild hepatomegaly. Reading Location: [place] [id number]
--- NOTE | 2025-04-12 07:34 | US_ITS ---
PROCEDURE: ABDOMEN LIMITED 04/12/2025 REASON FOR EXAM: ELEVATED LIVER ENZYMES COMPARISON: None FINDINGS: Liver: Diffusely echogenic suggesting fatty infiltration. Mild hepatomegaly. The liver measures 18.7 cm. Gallbladder: No stones sludge wall thickening or tenderness. Common bile duct: Normal measuring 3.1 mm . Pancreas: Normal Other: Visualized portions of the right kidney are unremarkable. No right upper quadrant ascites. US/Abdomen Limited IMPRESSION: Fatty infiltration of the liver. Mild hepatomegaly. Reading Location: [place] [id number]
--- OUTSIDE RECORDS SUMMARY | 2025-04-12 07:35 | XMS RPT_ITS | CCD ---
Author Organization [facility] COMM[employer]CIAL LOAN OFFICER [facility] Care Team Providers Care 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 Name Role Phone Vickey Del Toro MD Primary Care Provider VICKEY DEL TORO Referring Unavail able VICKEY DEL TORO Primary Care Unavail able Vickey Del Toro MD Primary Care Provide r Vickey Del Toro MD Primary Care Provider VICKEY DEL TORO Primary Care UnavailGEORGIA Olivarez Referring Unavailable VICKEY DEL TORO Primary Care UnavailGEORGIA Olivarez Attending Unavailable VICKEY DEL TORO Primary Care UnavailANDRE Perez Attending Unavailable ANDRE WILD Attending Unavailable VICKEY DEL TORO Primary Care Unavailabl Vickey Holbrook Attending Unavailable Vickey Del Toro Referring Unavailable Vickey Del Toro Primary Care Unavailable Kian Baker Attending Unavailable Vickey Del Toro Primary Care Unavailable Kian Baker Attending Unavailable Vickey Del Toro Primary Care Unavailable Kian Baker Attending Unavailable Vickey Del Toro Primary Care Unavailable Kian Baker Attending Unavailable Vickey Del Toro Primary Care Unavailable Kian Baker Attending Unavailable Katey, Shivaophmacario Primary Care Unavailable Kian Baker Attending Unavailable Vickey Del Toro Primary Care Unavailable Vickey Del Toro Attending Unavailable Vickey Del Toro Referring Unavailable Vickey Del Toro Primary Care Unavailable Vickey Del Toro Attending Unavailable Vickey Del Toro Primary Care Unavailable Vickey Del Toro Attending Unavailable Vickey Del Toro Referring Unavailable Vickey Del Toro Primary Care Unavailable Allergies Allergy Classification Reported Allergen(s) Allergy Type Date of Onset Reaction(s) Facility (1 source) ALLERGIES NOT ON FILE; Translations: [ALLERGIES NOT ON FILE] Propensity to adverse reactions (disorder) [facility] 2 Repository Medications Current Medications Medication Drug Class(es) Dates Sig (Normalized) Sig (Original) ARIPiprazole 15 mg oral tablet (18 sources) Atypical Antipsychotic Start: 11-25-2023 take 1 tablet by mouth once daily ARIPiprazole (ABILIFY) 15 mg tablet Take 15 mg by mouth once daily. 11/25/2023 Active Start: 11-20-2020 take 10 mg by mouth at bedtime Aripiprazole Active 10 MG PO AT BEDTIME November 20, 2020 1:27pm Start: 11-20-2020 take 5 mg by mouth once daily Aripiprazole Active 5 MG PO DAILY November 20, 2020 1:27pm Start: 06-10-2019 End: 12-29-2023 ARIPiprazole (ABILIFY) 5 mg tablet 15 mg. 0 06/10/2019 12/29/2023 Discontinued Comment on above: 15 mg. calcium carbonate 1500 mg / cholecalciferol 800 unt chewable tablet (15 sources) Vitamin D Start: 11-20-2020 take 1 tablet by mouth once daily Calcium Carbonate-Vitamin D3 (Calcium 600 With Vitamin D3) 600 mg(1,500mg) -400 unit tablet,chewable Active 1 TABLET PO DAILY November 20, 2020 1:30pm Start: 03-19-2012 take 1 tablet by mio th twice daily calcium carbonate 600 mg-cholecalciferol 200 units (CALCIUM 600 + D,3,) 600 mg(1,500mg) -200 unit Tab Take 1 tablet by mouth twice daily. 0 03/19/2012 Active Comment on above: Take 1 tablet by mio th twice daily. cholecalciferol 0.075 mg ora l tablet (13 sources) Vitamin D Cholecalciferol, Vitamin D3, 3,000 unit tab Take by mouth once daily. Active Cholecalciferol, Vitamin D3, 3,000 unit tab Take by mouth. 0 Active Comment on above: Take by mouth. Cholecalciferol (Vitamin D3) (Vitamin D3) 5,000 UNIT capsule (2 sources) Start: take 1 tablet by mouth once daily Cholecalciferol (Vitamin D3) (Vitamin D3) 5,000 UNIT capsule Active 1 TABLET PO DAILY November 27, 2020 1:28pm Start: 11-27-2020 take 1 tablet by mio th once daily Cholecalciferol (Vitamin D3) (Vitamin D3) 5,000 UNIT capsule Active 1 TABLET PO DAILY November 27, 2020 12:00am escitalopram 20 mg oral tablet (16 sources) Serotonin Reuptake Inhibitor Start: 11-28-2023 take 1 tablet by mouth once daily escitalopram oxalate (LEXAPRO) 20 mg tablet Take 20 mg by mouth once daily. 11/28/2023 Active Start: 06-10-2019 End: 12-29-2023 escitalopram oxalate (LEXAPR O) 10 mg tablet hydroCHLOROthiazide 25 mg oral tablet (11 sources) Thiazide Diuretic Start: 12-22-2024 take 1 tablet by mouth once daily hydroCHLOROthiazide 25 mg tablet Take 1 tablet by mouth once daily. 12/22/2024 Active Start: 12-01-2023 End: 01-10-2025 take 1 capsule by mouth once hydroCHLOROthiazide 12.5 mg capsule Take 1 capsule by mouth every afternoon. 12/01/2023 01/10/2025 Discontinued (Other) losartan potassium 100 mg oral tablet (3 sources) Angiotensin 2 Receptor Annia Start: 01-02-2025 take 1 tablet by mouth once daily losartan (COZAAR) 100 mg tablet Take 1 tablet by mouth once daily. 01/02/2025 Active Multivitamin preparation (2 sources) Start: 11-27-2020 Multivitamin Active 1 EACH PO DAILY November 27, 2020 1:28pm Start: 11-27-2020 Multivitamin A ctive 1 EACH PO DAILY November 27, 2020 12:00am pantoprazole 40 mg delayed release oral tablet (10 sources) Proton Pump Inhibitor Start: 12-04-2023 take 1 tablet by mouth once daily at breakfast pantoprazole DR (PROTONIX) 40 mg tablet TAKE 1 TABLET BY MOUTH ONCE DAILY BEFORE MORNING MEAL 12/04/2023 Active QUEtiapine 100 mg oral tablet (11 sources) Atypical Antipsychotic Start: 12-17-2020 End: 03-04-2024 QUEtiapine (SEROQUEL) 100 mg tablet 150 mg. 0 12/17/2020 03/04/2024 Discontinued Start: 11-20-2020 take 100 mg by mouth once khalida y Quetiapine Active 100 MG PO DAILY November 20, 2020 1:26pm Comment on above: 150 mg. tranexamic acid 650 mg oral tablet (11 sources) Antifibrinolytic Agent Start: 09-01-20 End: 04-10-20 take 2 tablets by mouth every eight hours as needed tranexamic acid (LYSTEDA) 650 mg tablet Take 2 tablets by mouth three times daily as needed (heavy menstrual bleeding) for up to 5 days. 30 tablet 11 04/05/2022 Active Comment on above: Take 2 tablets by mo uth three times daily as needed (heavy menstrual bleeding) for up to 5 days. traZODone hydrochloride 100 mg oral tablet (10 sources) Serotonin Reuptake Inhibitor Start: 11-28-19 take 1 tablet by mouth once daily at bedtime traZODone (DESYREL) 100 mg tablet Take 100 mg by mouth daily at bedtime. 11/28/2023 Active Completed/Discontinued Medications Medication Drug Class(es) Dates Sig (Normalized) Sig (Original) lisinopril 40 mg oral tablet (8 sources) Angiotensin Converting Enzyme Inhibitor Start: 12-01-2023 End: 01-10-2025 take 1 tablet by mouth once lisinopril (ZESTRIL) 40 mg tablet Take 1 tablet by mouth every afternoon. 12/01/2023 01/10/2025 Discontinued (Other) meloxicam 15 mg oral tablet (8 sources) Nonsteroidal Anti-inflammatory Drug Start: 12-01-2023 End: 01-10-2025 take 1 tablet by mouth once meloxicam (MOBIC) 15 mg tablet Take 1 tablet by mouth every afternoon. 12/01/2023 01/10/2025 Discontinued (Other) multivits w-ca,fe,other min(ONE-A-DAY WOMENS FORMULA 27 MG-0.4 MG TAB) (11 sources) Start: 06-08-2009 End: 01-10-2025 multivits w-ca,fe,other min(ONE-A-DAY WOMENS FORMULA 27 MG-0.4 MG TAB) Take by mouth once daily. 0 06/08/2009 01/10/2025 Discontinued (Other) Start: 06-08-2009 multivits w-ca ,fe,other min(ONE-A-DAY WOMENS FORMULA 27 MG- 0.4 MG TAB) Take by mouth once daily. 0 06/08/2009 Active Start: 06-08-2009 multivits w-ca ,fe,other min(ONE-A-DAY WOMENS FORMULA 27 MG- 0.4 MG TAB) Problems Active Problems Problem Classification Problem Date Documented Da te Episodic/Chronic Anxiety disorders (13 sources) Anxiety disorder; Translations: [Anxiety disorder, unspecified] Onset: 07-29-2009 07-29-2009 Chronic Disorders of lipid metabolism (16 sources) Mixed hyperlipidemia; Translations: [Mixed hyperlipidemia] Onset: 03-14-2007 03-14-2007 Chronic Mood disorders (13 sources) Depressive disorder; Translations: [Other specified depressive episodes] Onset: 07-29-2009 07-29-2009 Chronic Other female genital disorders (2 sources) Cyst of vulva; Translations: [Vulvar cyst] 03-04-2024 Episodic Other gastrointestinal disorders (2 sources) Stool DNA-based colorectal cancer screening positive; Translations: [Other fecal abnormalities] Episodic Other injuries and conditions due to external causes (2 sources) H/O: fracture; Translations: [Personal history of (healed) traumatic fracture] Episodic Other liver diseases (1 source) Abnormal levels of other serum enzymes; Translations: [Abnormal levels of other serum enzymes] Onset: 04-10-2025 Episodic Other nutritional; endocrine; and metabolic disorders (14 sources) Obese class II; Translations: [Obesity, unspecified] Onset: 04-05-2022 Chronic Other screening for suspected conditions (not mental disorders or infectious disease) (8 sources) Patient encounter status; Translations: [Encounter for screening mammogram for malignant neoplasm of breast] Onset: 01-10-2025 Episodic Schizophrenia and other psychotic disorders (1 source) Unspecified psychosis not due to a substance or known physiological condition; Translations: [Unspecified psychosis not due to a substance or known physiological condition] Onset: 07-29-2024 Chronic Unclassified (2 sources) Patient encounter status 01-10-2025 Past or Other Problems Problem Classification Problem Date Documented Da te Episodic/Chronic Other circulatory disease (13 sources) Elevated blood-pressure reading without diagnosis of hypertension; Translations: [Elevated blood-pressure reading, without diagnosis of hypertension] Onset: 05-08-2008 05-08-2008 Episodic Other complications of (10 sources) Multigravida of advanced maternal age; Translations: [Supervision of elderly multigravida, unspecified trimester] Onset: 05-06-2009 Resolved: 11-20-2009 11-20-2009 Episodic Residual codes; unclassified (13 sources) Family history of ischemic heart disease; Translations: [Family history of ischemic heart disease and other diseases of the circulatory system] Onset: 07-29-2009 07-29-2009 Episodic Residual codes; unclassified (1 source) Edema, unspecified; Translations: [Edema, unspecified] Onset: 07-10-2024 Episodic Results Test Name Value Interpretation Reference Range Facil ity ANTINUCLEAR ANTIBODIES DIREC Ton 04-09-2025 IDANIA,DIRECT Negative Normal Negative [facility] Comment on above: Order Comment: Order Date: 06/03/24 Order Info: [id number] - [facility] [employer] WORKER HELPER TO SPECIFY Result Comment: Perf ormed at: [facility] [address] [id number] Dyed Raw Stock Blower Feeder: Gibson Heaton PhD, Phone: [phone] Performed By: #### L 400.0001 #### [facility] [address] [place], [place], [address] CBC W/Diff, Automatedon 08 ATYPICAL LYMPH 2+ Normal [facility] Comment on above: Order Comment: Order Date: 04/08/25 Order Info: 0184-1 - CBCD Order Info: [id number] - SED Performed By: #### L 100.0100, L503.6150, L500.4050, L3100.5055, L503.6550, L101.9900, L501.9520 #### [facility] [address] [place], [address] CRPon 04-08-2025 C-REACTIVE PROT 12.50 mg/L High 0.0-3.0 [facility] Comment on above: Order Comment: Order Date: 06/03/24 Order Info: [id number] - [facility] WORKER HELPER TO SPECIFY Performed By: #### L 400.0001 #### [facility] [address] [place], [address] Comprehensive Metabolic Prof shirley 04-08-2025 Albumin [Mass/Vol] 4.3 g/dL Normal 3.5-5.0 [facility] Comment on above: Order Comment: Order Date: 04/08/25 Order Info: 785- - CMP Order Info: - LIPID Order Info: [id number] - CRP Order Info: 3015-11 - TSH Order Info: 2497-12 - FE Order Info: 2275-12 - EL Order Info: 552-09 - [facility] Performed By: #### L 100.0100, L503.6150, L500.4050, L3100.5055, L503.6550, L101.9900, L501.9520 #### [facility] [address] [place], [place], [id number] Albumin/Globulin [Mass ratio] 1.2 {ratio} Normal 0.9-2.4 [facility] Comment on above: Order Comment: Order Date: 04/08/25 Order Info: 785-09 - CMP Order Info: - LIPID Order Info: - CRP Order Info: 3015-11 - TSH Order Info: 2497-12 - FE Order Info: 2275-12 - EL Order Info: 552-09 - [facility] Performed By: #### L 100.0100, L503.6150, L500.4050, L3100.5055, L503.6550, L101.9900, L501.9520 #### [facility] [address] [place], [place], [id number] ALK PHOS 190 U/L High 35-104 [facility] Comment on above: Order Comment: Order Date: 04/08/25 Order Info: 785-09 - CMP Order Info: - LIPID Order Info: [id number] - CRP Order Info: 3015-11 - TSH Order Info: 2497-12 - FE Order Info: 2275-12 - EL Order Info: 552-09 - [facility] Performed By: #### L 100.0100, L503.6150, L500.4050, L3100.5055, L503.6550, L101.9900, L501.9520 #### [facility] [address] [place], [address] ALT [Catalytic activity/Vol] 469 U/L High <=34 [facility] Comment on above: Order Comment: Order Date: 04/08/25 Order Info: 86-1 - CMP Order Info: - LIPID Order Info: [id number] - CRP Order Info: 3015-11 - TSH Order Info: 2497-12 FE Order Info: 2275-12 - EL Order Info: 552- - [facility] Performed By: #### L 100.0100, L503.6150, L500.4050, L3100.5055, L503.6550, L101.9900, L501.9520 #### [facility] [address] [place], [address] AST [Catalytic activity/Vol] 290 U/L High <=31 [facility] Comment on above: Order Comment: Order Date: 04/08/25 Order Info: 785-1 - CMP Order Info: - LIPID Order Info: [id number] - CRP Order Info: 3015-11 - TSH Order Info: 2497-12 FE Order Info: 2275-12 - EL Order Info: 552-09 - [facility] Performed By: #### L 100.0100, L503.6150, L500.4050, L3100.5055, L503.6550, L101.9900, L501.9520 #### [facility] [address] [place], [address] Bilirubin [Mass/Vol] 0.54 mg/dL Normal 0.00-1.30 [facility] Comment on above: Order Comment: Order Date: 04/08/25 Order Info: 86-1 - CMP Order Info: [id number] - LIPID Order Info: [id number] - CRP Order Info: 3015-11 - TSH Order Info: 2497-12 - FE Order Info: 2275-12 EL Order Info: 552-09 - [facility] Performed By: #### L 100.0100, L503.6150, L500.4050, L3100.5055, L503.6550, L101.9900, L501.9520 #### [facility] [address] [place], [address] BUN/CRE 12.5 RATIO Normal 10-20 [facility] Comment on above: Order Comment: Order Date: 04/08/25 Order Info: 0786-1 - CMP Order Info: [id number] - LIPID Order Info: [id number] - CRP Order Info: 3015-11 - TSH Order Info: 2497-12 - FE Order Info: 2275-12 - EL Order Info: 552-09 - [facility] Performed By: #### L 100.0100, L503.6150, L500.4050, L3100.5055, L503.6550, L101.9900, L501.9520 #### [facility] [address] [place], [address] Calcium [Mass/Vol] 9.6 mg/dL Normal 7.6-11.0 [facility] Comment on above: Order Comment: Order Date: 04/08/25 Order Info: 0786-1 - CMP Order Info: [id number] - LIPID Order Info: 30354-9 - CRP Order Info: 3 - TSH Order Info: 2497-12 - FE Order Info: 2275-12 - EL Order Info: 552-09 - [facility] Performed By: #### L 100.0100, L503.6150, L500.4050, L3100.5055, L503.6550, L101.9900, L501.9520 #### [facility] [address] [place], [address] Chloride [Moles/Vol] 98 mmol/L Normal 98-108 [facility] Comment on above: Order Comment: Order Date: 04/08/25 Order Info: 0786-1 - CMP Order Info: [id number] - LIPID Order Info: - CRP Order Info: 3015-11 - TSH Order Info: 2497-12 FE Order Info: 2275-12 EL Order Info: 552-09 - [facility] Performed By: #### L 100.0100, L503.6150, L500.4050, L3100.5055, L503.6550, L101.9900, L501.9520 #### [facility] [address] [place], [place], [id number] CO2 [Moles/Vol] 25.8 mmol/L Normal 21.0-32.0 [facility] Comment on above: Order Comment: Order Date: 04/08/25 Order Info: 07 - CMP Order Info: - LIPID Order Info: - CRP Order Info: 3015-11 - TSH Order Info: 2497-12 FE Order Info: 2275-12 EL Order Info: 552-09 - [facility] Performed By: #### L 100.0100, L503.6150, L500.4050, L3100.5055, L503.6550, L101.9900, L501.9520 #### [facility] [address] [place], [address] Creatinine [Mass/Vol] 1.07 mg/dL Normal 0.70-1.20 [facility] Comment on above: Order Comment: Order Date: 04/08/25 Order Info: 0786 - CMP Order Info: - LIPID Order Info: - CRP Order Info: 3015-11 - TSH Order Info: 2497-12 - FE Order Info: 2275-12 - EL Order Info: 552-09 - [facility] Performed By: #### L 100.0100, L503.6150, L500.4050, L3100.5055, L503.6550, L101.9900, L501.9520 #### [facility] [address] [place], [address] GAP 14 Normal 5-15 [facility] Comment on above: Order Comment: Order Date: 04/08/25 Order Info: 785- - CMP Order Info: - LIPID Order Info: [id number] - CRP Order Info: 3 - TSH Order Info: 2497-12 - FE Order Info: 2275-12 - EL Order Info: 552- - [facility] Performed By: #### L 100.0100, L503.6150, L500.4050, L3100.5055, L503.6550, L101.9900, L501.9520 #### [facility] [address] [place], [place], [address] GFR/1.73 sq M.predicted among non-blacks MDRD (S/P/Bld) [Vol rate/Area] 62 mL/min/{1.73_m2} Normal >60 [facility] Comment on above: Order Comment: Order Date: 04/08/25 Order Info: 785-09 - CMP Order Info: - LIPID Order Info: [id number] - CRP Order Info: 3015-11 - TSH Order Info: 2497-12 - FE Order Info: 2275-12 - EL Order Info: 552-09 - [facility] Result Comment: mL/m in/1.73m2 CKD-EPI Creatinine Equation (2020) Performed By: #### L 100.0100, L503.6150, L500.4050, L3100.5055, L503.6550, L101.9900, L501.9520 #### [facility] [address] [place], [address] Globulin (S) [Mass/Vol] 3.5 g/dL Normal 2.2-4.2 [facility] Comment on above: Order Comment: Order Date: 04/08/25 Order Info: 785-09 - CMP Order Info: - LIPID Order Info: [id number] - CRP Order Info: 3 - TSH Order Info: 2497-12 - FE Order Info: 2275-12 - EL Order Info: 0553-1 - [facility] Performed By: #### L 100.0100, L503.6150, L500.4050, L3100.5055, L503.6550, L101.9900, L501.9520 #### [facility] [address] [place], [address] Glucose [Mass/Vol] 98 mg/dL Normal 70-99 [facility] Comment on above: Order Comment: Order Date: 04/08/25 Order Info: 0786-1 - CMP Order Info: [id number] - LIPID Order Info: 68895-2 - CRP Order Info: 3015-11 - TSH Order Info: 2497-12 - FE Order Info: 2275-12 EL Order Info: 05-1 - [facility] Performed By: #### L 100.0100, L503.6150, L500.4050, L3100.5055, L503.6550, L101.9900, L501.9520 #### [facility] [address] [place], [address] Potassium [Moles/Vol] 3.8 mmol/L Normal 3.3-5.1 [facility] Comment on above: Order Comment: Order Date: 04/08/25 Order Info: 0786-1 - CMP Order Info: [id number] - LIPID Order Info: 77622-6 - CRP Order Info: 3015-11 - TSH Order Info: 2497-12 FE Order Info: 2275-12 - EL Order Info: 0553-1 - [facility] Performed By: #### L 100.0100, L503.6150, L500.4050, L3100.5055, L503.6550, L101.9900, L501.9520 #### [facility] [address] [place], [address] Sodium [Moles/Vol] 138 mmol/L Normal 133-145 [facility] Comment on above: Order Comment: Order Date: 04/08/25 Order Info: 0786-1 - CMP Order Info: [id number] - LIPID Order Info: [id number] - CRP Order Info: 3015-11 - TSH Order Info: 2497-12 - FE Order Info: 2275-12 - EL Order Info: 552-09 - [facility] Performed By: #### L 100.0100, L503.6150, L500.4050, L3100.5055, L503.6550, L101.9900, L501.9520 #### [facility] [address] [place], [place], [address] [phone] PROT 7.8 g/dL Normal 5.9-8.4 [facility] Comment on above: Order Comment: Order Date: 04/08/25 Order Info: 0786- - CMP Order Info: [id number] - LIPID Order Info: - CRP Order Info: 3015-11 - TSH Order Info: 2497-12 - FE Order Info: 2275-12 - EL Order Info: 552-09 - [facility] Performed By: #### L 100.0100, L503.6150, L500.4050, L3100.5055, L503.6550, L101.9900, L501.9520 #### [facility] [address] [place], [place], [address] [phone] Urea nitrogen [Mass/Vol] 13 mg/dL Normal 4-19 [facility] Comment on above: Order Comment: Order Date: 04/08/25 Order Info: 0786- - CMP Order Info: [id number] - LIPID Order Info: 68843-5 - CRP Order Info: 3015-11 - TSH Order Info: 2497-12 - FE Order Info: 2275-12 - EL Order Info: 552-09 - [facility] Performed By: #### L 100.0100, L503.6150, L500.4050, L3100.5055, L503.6550, L101.9900, L501.9520 #### [facility] [address] [place], [place], [id number] (245) Erythrocyte Sed Rateon 04-08 SED RATE 30 mm/hr Normal 0-30 [facility] Comment on above: Order Comment: Order Date: 04/08/25 Order Info: 0184-1 - CBCD Order Info: [id number] - SED Performed By: #### L 100.0100, L503.6150, L500.4050, L3100.5055, L503.6550, L101.9900, L501.9520 #### [facility] [address] [place], [place], [address] FSH and LHon 04-08-2025 FSH 35.2 mIU/mL Normal [facility] Comment on above: Order Comment: Order Date: 04/08/25 Order Info: 0786-1 - CMP Order Info: [id number] - LIPID Order Info: [id number] - CRP Order Info: 3015-11 - TSH Order Info: 2497-12 - FE Order Info: 2275-12 - EL Order Info: 552- - [facility] Result Comment: FEMA LE: Follicular: 1.4 - 18.1 mIU/mL Midcycle: 3.4 - 33.4 mIU/mL Luteal: 1.5 - 9.1 mIU/mL Post Menopause: 23.0 - 116.3 mIU/mL MALE: 1.4 - 18.1 mIU/mL Performed By: #### L 100.0100, L503.6150, L500.4050, L3100.5055, L503.6550, L101.9900, L501.9520 #### [facility] [address] [place], [place], [address] LH 26.9 mIU/mL Normal [facility] Comment on above: Order Comment: Order Date: 04/08/25 Order Info: 0786-1 - CMP Order Info: [id number] - LIPID Order Info: [id number] - CRP Order Info: 3 - TSH Order Info: 2497-12 - FE Order Info: 2275-12 - EL Order Info: 53-1 - [facility] Result Comment: FEMA LE: Follicular: 1.9-12.5 mIU/mL Midcycle: 8.7-76.3 mIU/mL Luteal: 0.5-16.9 mIU/mL Post Menopause: 15.9-54.0 mIU/mL MALE: 20-70 Years: 1.5-9.3 mIU/mL >70 Years: 3.1-34.6 mIU/mL Performed By: #### L 100.0100, L503.6150, L500.4050, L3100.5055, L503.6550, L101.9900, L501.9520 #### [facility] [address] [place], [place], [id number] Ferritinon 04-08-2025 Ferritin [Mass/Vol] 97 ng/mL Normal 22-378 [facility] Comment on above: Order Comment: Order Date: 04/08/25 Order Info: 0786-1 - CMP Order Info: [id number] - LIPID Order Info: [id number] - CRP Order Info: 3013 - TSH Order Info: 2497-12 - FE Order Info: 2275-12 - EL Order Info: 0553-1 - [facility] Performed By: #### L 100.0100, L503.6150, L500.4050, L3100.5055, L503.6550, L101.9900, L501.9520 #### [facility] [address] [place], [place], [phone] Ironon 04-08-2025 Iron [Mass/Vol] 73 ug/dL Normal 50-170 [facility] Comment on above: Order Comment: Order Date: 04/08/25 Order Info: 0786-1 - CMP Order Info: 10053-8 - LIPID Order Info: [id number] - CRP Order Info: 301-3 - TSH Order Info: 24984 - FE Order Info: 4 - EL Order Info: 53-1 - [facility] Performed By: #### L 100.0100, L503.6150, L500.4050, L3100.5055, L503.6550, L101.9900, L501.9520 #### [facility] [address] [place], [address] L509.6001on 04-08-2025 CORTISOL 17.10 ug/dL Normal 6.02-18.40 [facility] Comment on above: Order Comment: Order Date: 06/03/24 Order Info: [id number] - [facility] [employer] WORK[employer] HELPER TO SPECIFY Performed By: #### L 400.0001 #### [facility] [address] [place], [address] Lipid Profileon 04-08-2025 CHOL:HDL 5.57 Normal [facility] Comment on above: Order Comment: Order Date: 04/08/25 Order Info: 0786-1 - CMP Order Info: [id number] - LIPID Order Info: 82595-8 - CRP Order Info: 6-3 - TSH Order Info: 24904-07 - FE Order Info: 4 - EL Order Info: 0553-1 - [facility] Performed By: #### L 500.4100 #### [facility] [address] [place], [place], [address] Cholesterol [Mass/Vol] 245 mg/dL High <=200 [facility] Comment on above: Order Comment: Order Date: 04/08/25 Order Info: 0786-1 - CMP Order Info: 14355-2 - LIPID Order Info: [id number] - CRP Order Info: 3015-3 - TSH Order Info: 2497-12 - FE Order Info: 4 - EL Order Info: 0553-1 - [facility] Result Comment: Chol esterol level, Desirable <200 mg/dL Borderline high cholesterol 200-239 mg/dL High cholesterol >=240 mg/dL Recommendations of the NCEP Adult Treatment Panel for the following risk-cutoff thresholds for the [place] population. Performed By: #### L 500.4100 #### [facility] [address] [place], [address] Cholesterol in HDL [Mass/Vol] 44 mg/dL Normal [facility] Comment on above: Order Comment: Order Date: 04/08/25 Order Info: 0786-1 - CMP Order Info: [id number] - LIPID Order Info: [id number] - CRP Order Info: 63 - TSH Order Info: 2497-12 - FE Order Info: 2275-12 - EL Order Info: 53-1 - FSHLH Result Comment: Daniela onal Cholesterol Education Program (NCEP) guidelines: <40 mg/dL: Low HDL-cholesterol (major risk factor for CHD) >= 60 mg/dL: High HDL-cholesterol (negative risk factor for CHD) HDL-cholesterol is affected by a number of factors, e.g. smoking, exercise, hormones, sex and age. Performed By: #### L 500.4100 #### [facility] [address] [place], [place], [phone] (107) Cholesterol in LDL [Mass/Vol] 162 mg/dL Normal [facility] Comment on above: Order Comment: Order Date: 04/08/25 Order Info: 0786-1 - CMP Order Info: [id number] - LIPID Order Info: [id number] - CRP Order Info: 3 - TSH Order Info: 2497-12 FE Order Info: 2275-12 - EL Order Info: 552-09 - FSHLH Result Comment: Bord twrzez=769-103 mg/dL Higher Yjjp=588 mg/dL or greater Friedwald Equation for LDL-C Performed By: #### L 500.4100 #### [facility] [address] [place], [place], [phone] (140) Cholesterol in VLDL [Mass/Vol] 39 mg/dL Normal 5-40 [facility] Comment on above: Order Comment: Order Date: 04/08/25 Order Info: 0786-1 - CMP Order Info: [id number] - LIPID Order Info: [id number] - CRP Order Info: 63 - TSH Order Info: 2497-12 - FE Order Info: 2275-12 - EL Order Info: 53 - FSHLH Performed By: #### L 500.4100 #### [facility] [address] [place], [place], [phone] (844) Triglyceride [Mass/Vol] 193 mg/dL Normal [facility] Comment on above: Order Comment: Order Date: 04/08/25 Order Info: 0786- - CMP Order Info: [id number] - LIPID Order Info: [id number] - CRP Order Info: 3 - TSH Order Info: 2497-12 FE Order Info: 2275-12 - EL Order Info: 552-09 - FSHLH Result Comment: The drugs N-Acetylcysteine and Metamizole may falsely depress this assay. Normal range: <150 mg/dL Borderline High: 150-199 mg/dL High: 200-499 mg/dL Very High: >500 mg/dL Performed By: #### L 500.4100 #### [facility] [address] [place], [place], [address] Thyroid Stim Hormone (TSH)on 04-08-2025 TSH 2.300 uIU/mL Normal 0.300-4.200 [facility] Comment on above: Order Comment: Order Date: 04/08/25 Order Info: 0786- - CMP Order Info: [id number] - LIPID Order Info: [id number] - CRP Order Info: 3 - TSH Order Info: 2497-12 Order Info: 2275-12 - EL Order Info: 552-09 - FSHLH Performed By: #### L 100.0100, L503.6150, L500.4050, L3100.5055, L503.6550, L101.9900, L501.9520 #### [facility] [address] [place], [place], [address] [phone] Urinalysis, Completeon 04-08 BACTERIA 0 SEEN Normal None Seen [facility] Comment on above: Order Comment: Order Date: 06/03/24 Order Info: [id number] - [facility] [employer] HELPER TO SPECIFY Performed By: #### L 400.0001 #### [facility] [address] [place], [place], [address] (009) EPI,SQUAMOUS 0 SEEN Normal 5-10 [facility] Comment on above: Order Comment: Order Date: 06/03/24 Order Info: [id number] - [facility] HELPER TO SPECIFY Performed By: #### L 400.0001 #### [facility] [address] [place], [address] Mucus Ql (Urine sed) 0 SEEN Normal [facility] Comment on above: Order Comment: Order Date: 06/03/24 Order Info: [id number] - [facility] [employer] WORKER HELPER TO SPECIFY Performed By: #### L 400.0001 #### [facility] [address] [place], [address] RBC 0 SEEN Normal 0-5 [facility] Comment on above: Order Comment: Order Date: 06/03/24 Order Info: [id number] - [facility] [employer] HELPER TO SPECIFY Performed By: #### L 400.0001 #### [facility] [address] [place], [address] WBC 0 SEEN Normal 0-5 [facility] Comment on above: Order Comment: Order Date: 06/03/24 Order Info: [id number] - [facility] [employer] HELPER TO SPECIFY Performed By: #### L 400.0001 #### [facility] [address] [place], [address] Vitamin B12on 04-08-2025 Cobalamin (Vitamin B12) [Mass/Vol] 1747 pg/mL High 180-914 [facility] Comment on above: Order Comment: Order Date: 04/08/25 Order Info: 0786-1 - CMP Order Info: [id number] - LIPID Order Info: [id number] - CRP Order Info: 3016-3 - TSH Order Info: 2498-4 - FE Order Info: 2276-4 - EL Order Info: 0553-1 - FSHLH Performed By: #### L 506.1001, L509.6001, L503.0106 #### [facility] [address] [place], [address] Vitamin D,25 Hydroxyon 04-08 Vitamin D 25-OH 97.2 ng/mL Normal 30-100 [facility] Comment on above: Order Comment: Order Date: 06/03/24 Order Info: [id number] - [facility] HELPER TO SPECIFY Result Comment: Magui min D Status Deficiency: <20 ng/mL (50nmol/L) Insufficiency: 20-30 ng/mL (50-75 nmol/L) Sufficiency: 30-100 ng/mL (75-250 nmol/L) Toxicity: >100 ng/mL (>250 nmol/L) Performed By: #### L 400.0001 #### [facility] [address] [place], [place], [address] MR/BMS.BPon 03-17-2025 MR/BMS.BP [facility] [address] [facility], [address] [place], [place] [address] OFFICE VISIT Date of Service: 03/17/25 MR#: [id number] Acct: [id number] Name: KARMA KAPOOR Rep #: [id number] : 1970 Provider: Dr. Kian Ivan se, DO Age/Sex: 54/F Location: [facility] Status: Signed Intake Vital Signs 01/30/25 16:33 03/17/25 14:28 Height 5 ft 5 in 5 ft 5 in Weight: 231 lb 235 lb BMI 38.4 39.1 BP 150/84 H 151/83 H Blood Pressure Location Lt brachial Lt brachial Position Sitting Sitting Respiration 16 16 Pulse 97 78 Pulse Source Monitor Monitor BP Intake Visit Reasons: 6 wk FU Accompanied by: Self Allergies No Known Allergies Allergy (Verified 03/17/25 14:31) Medications ???Medication ???Instructions ???Recorded ???Confirmed ???Type calcium 600 mg (as carbonate)-vit 1 tablet PO DAILY 11/20/20 History D3 10 mcg (400 unit) chewable tablet (Calcium 600 with Vitamin D3) Cholecalciferol (Vitamin D3) 1 tablet PO DAILY 11/27/20 5 History [Vitamin D3] multivitamin 1 each PO DAILY 11/27/20 03/17/25 History lisinopril 20 mg tablet 40 mg PO DAILY 03/27/23 03/17/25 H istory pantoprazole 40 mg tablet,delayed mg PO 03/27/23 03/17/25 History release hydrochlorothiazide 12.5 mg capsule 25 mg PO 07/29/24 03/17/25 Hist ory turmeric root extract 500 mg 500 mg PO QDAY 07/29/24 03/17/25 H istory capsule aripiprazole 15 mg tablet See Rx Instructions .Route 5 03/17/25 Rx .COMPLEX #90 tabs escitalopram oxalate 20 mg tablet See Rx Instructions .Route 03/17/25 Rx .COMPLEX #90 tabs trazodone 100 mg tablet 100 mg PO QHS PRN sleep #90 tabs 0 01/15/25 03/17/25 Rx PFSH Medical History DIMA (generalized anxiety disorder) Unspecified psychosis Hypertension Positive colorectal cancer screening using Cologuard test Surgical History Hx of fracture of arm History of Family History Father Heart disease Hypertension Mother Hypertension Heart disease High cholesterol Brother High cholesterol Social History Smoking Status: Never smoker second hand exposure: No alcohol intake: never substance use type: does not use caffeine: Yes what type of physical activity do you participate in: walking frequency: 3-4 times per week HPI History of Present Illness History provided by: patient HPI: Karma Kapoor is a 54 year old female who presents today for follow up evaluation. Patient reports to be doing much better this time. Did go back in to talk with principle shortly after last appointment which was helpful. 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 Did sign contract for next year. Mood villagran she is feeling good. 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 Has also been busy helping take care of mother in law, and also mom will be coming to stay at her house. Has been also out camping and going on vacation. Sleep has been good, sometimes getting up to 12 hours, but usually in relaxation. Has had some more headaches in recent past, which she attributes to stress of classes. Denies any SI HI or AVH. Review of Systems Constitutional Reports: fatigue; Denies: fever(s), chills or change in weight Eyes Denies: change in vision or blurry vision Ears, Nose, Mouth, Throat Denies: throat pain, neck pain or change in hearing Cardiovascular Reports: dyspnea; Denies: chest pain or palpitations Respiratory Reports: dyspnea; Denies: cough or wheezing Gastrointestinal Denies: abdominal pain, nausea, vomiting, diarrhea or constipation Genitourinary Denies: dysuria or urinary frequency Musculoskeletal Denies: back pain, neck pain, joint pain or muscle weakness Integumentary/Breast Denies: rash or new lesions Neurological Denies: headache(s), dizziness or confusion Endocrine Reports: fatigue; Denies: excessive sweating Hematologic/Lymphatic Denies: easy bruising or easy bleeding Allergic/Immunologic Denies: wheezing Exam Mental Status Exam - Psych Appearance casually dressed Attitude cooperative Activity/Motor Behavior MSE activity/motor behavior finding no adventitious movements Speech regular rate, regular volume and regular prosody Mood other (better) Affect tearful Thought Process linear, logical and coherent Thought Content no delusions Suicidal Ideation none Homicidal Ideation none Attention intact Concentration intact Sensorium/Orientation awake, alert, oriented x3 and lethargic Memory/Cognition other (marylin (more content not included)... Normal [facility] MR/BMS.BPon 01-30-2025 MR/BMS.BP [facility] [facility], [address] [place] [address] OFFICE VISIT Date of Service: 01/30/25 MR#: [id number] Acct: [id number] Name: KARMA KAPOOR Rep #: [id number] : 1970 Provider: Dr. Kian Ivan se, DO Age/Sex: 54/F Location: [facility] Status: Signed Intake Vital Signs 10/30/24 16:22 01/30/25 16:33 Height 5 ft 5 in 5 ft 5 in Weight: 226 lb 231 lb BMI 37.5 38.4 BP 128/78 H 150/84 H Blood Pressure Location Lt brachial Lt brachial Position Sitting Sitting Respiration 16 16 Pulse 80 97 Pulse Source Monitor Monitor BP Intake Visit Reasons: 3mfu Accompanied by: Allergies No Known Allergies Allergy (Verified 01/30/25 16:35) Medications ???Medication ???Instructions ???Recorded ???Confirmed ???Type calcium 600 mg (as carbonate)-vit 1 tablet PO DAILY 11/20/20 History D3 10 mcg (400 unit) chewable tablet (Calcium 600 with Vitamin D3) Cholecalciferol (Vitamin D3) 1 tablet PO DAILY 11/27/20 5 History [Vitamin D3] multivitamin 1 each PO DAILY 11/27/20 01/30/25 History lisinopril 20 mg tablet 40 mg PO DAILY 03/27/23 01/30/25 H istory pantoprazole 40 mg tablet,delayed mg PO 03/27/23 01/30/25 History release hydrochlorothiazide 12.5 mg capsule 25 mg PO 07/29/24 01/30/25 Hist ory turmeric root extract 500 mg 500 mg PO QDAY 07/29/24 01/30/25 H istory capsule aripiprazole 15 mg tablet See Rx Instructions .Route 5 01/30/25 Rx .COMPLEX #90 tabs escitalopram oxalate 20 mg tablet See Rx Instructions .Route 01/30/25 Rx .COMPLEX #90 tabs trazodone 100 mg tablet 100 mg PO QHS PRN sleep #90 tabs 0 01/15/25 01/30/25 Rx PFSH Medical History DIMA (generalized anxiety disorder) Unspecified psychosis Hypertension Positive colorectal cancer screening using Cologuard test Surgical History Hx of fracture of arm History of Family History Father Heart disease Hypertension Mother Hypertension Heart disease High cholesterol Brother High cholesterol Social History Smoking Status: Never smoker second hand exposure: No alcohol intake: never substance use type: does not use caffeine: Yes what type of physical activity do you participate in: walking frequency: 3-4 times per week HPI History of Present Illness History provided by: patient HPI: Karma Kapoor is a 54 year old female who presents today for follow up evaluation. Presents today with her . Patient reports that she has been fine until today. Patient is nearly dysphoric and tearful throughout encounter today. States that she received a negative review at work which she took very personally. 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 Worries that she will not have any support system at work and that she will eventually be unable to continue to work despite leaving her job. Denies any SI HI or AVH. Review of Systems Constitutional Reports: fatigue and change in sleep pattern (improving); Denies: fever(s), chills or change in weight Eyes Denies: change in vision or blurry vision Ears, Nose, Mouth, Throat Denies: throat pain, neck pain or change in hearing Cardiovascular Reports: dyspnea; Denies: chest pain or palpitations Respiratory Reports: dyspnea; Denies: cough or wheezing Gastrointestinal Denies: abdominal pain, nausea, vomiting, diarrhea or constipation Genitourinary Denies: dysuria or urinary frequency Musculoskeletal Denies: back pain, neck pain, joint pain or muscle weakness Integumentary/Breast Denies: rash or new lesions Neurological Denies: headache(s), dizziness or confusion Endocrine Reports: fatigue; Denies: excessive sweating Hematologic/Lymphatic Denies: easy bruising or easy bleeding Allergic/Immunologic Denies: wheezing Exam Mental Status Exam - Psych Appearance casually dressed Attitude withdrawn Activity/Motor Behavior MSE activity/motor behavior finding no adventitious movements Speech regular rate, regular volume and regular prosody Mood sad Affect tearful Thought Process linear, logical and coherent Thought Content no delusions Suicidal Ideation none Homicidal Ideation none Attention intact Concentration intact Sensorium/Orientation awake, alert, oriented x3 and lethargic Memory/Cognition other (appropriate for stated age) Insight fair Judgement fair Assessment Plan Assessment Plan (1) Unspecified psychosis: Plan: - Continue Abilify and Lexapro as previously prescribed (2) DIMA (generaliz (more content not included)... Normal [facility] CNOVon 01-10-2025 CNOV Office Visit (OBGYWM ) [facility] ([id number]) 1970 F Date Time Provider Department 01/10/25 1:40 PM GEOR[place]IA LUCERO OBGYWM During your visit today, we recorded the following information about you: Blood pressure Weight Height Last Period 128/82 102.1 kg 1.657 m 11/02/24 Georgia Lucero MD 01/10/2025 2:11 PM Signed Karma is a 54 year old who presents for an annual gynecologic exam without complaints. Postmenopausal: yes HRT use: No. Still get period: Yes Bleeding amount bothersome: Yes sometimes, uses txa occas. Skips some menses but has had most months. Few hot flashes. Bleeding between periods: Yes Period symptoms: Breast tenderness Menopause symptoms: Hot flashes; Night sweats Time with current partner: 31 years Number of lifetime partners: 1 control frequency: Never HPV vaccine: No; Last pap smear: 12/29/2023 History of abnormal pap: No, all prior PAP smears have been normal Bothersome pelvic pain: No Last mammogram: 2024 History of abnormal mammogram: No OB History Gravida3 Para3 Term3 Preterm0 AB0 Living3 SAB0 IAB0 Ectopic0 Multiple0 Live Births3 Police Lia[employer] History LMP: 11/02/2024, Having periods Age at Menarche: 12 Age at First : Age at Menopause: Police Liaison History Comments: Sexual Activity: Yes; Male Contraception: Tubal Ligation Menstrual Tracking History Flowsheet RowOffice Visit from 01/10/2025 in OB/GynecologyPeriod Cycle (Days) 30 Period Duration (Days) 10 Menstrual Flow Heavy PAST MEDICAL HISTORY Diagnosis Date Essential hypertension Generalized anxiety disorder Dr. Jessica alex meds Other and unspecified hyperlipidemia Hyperlipidemia PAST SURGICAL HISTORY Procedure Laterality Date DELIVERY ONLY x 3/ with the first one she needed two units of blood because she was bleeding out vaginally. LIG/TRNSXJ FLP TUBE ABDL/VAG APPR UNI/BI Tubal ligation PAST SURGICAL HISTORY OF pins/fx right arm PAST SURGICAL HISTORY OF WISDOM TEETH FAMILY HISTORY Problem Relation Lipids Mother Stroke Mother 88 Heart Father age 50's of massive PA; known CAD prior? Hypertension Father Lipids Sister Lipids Brother other (Clean cell cancer) Brother Kidney Cancer Brother stage 4 Heart Maternal Grandfather of a massive PA Heart Paternal Grandfather CHF, age 90's SOCIAL HISTORY Social History Tobacco Use Smoking status: Never Smokeless tobacco: Never Vaping Use Vaping status: Never Used Substance Use Topics Alcohol use: Not Currently Drug use: Never REVIEW OF SYSTEMS Abdomen: No abdominal pain, nausea, vomiting, diarrhea, or constipation. No bloating, early satiety, indigestion, or increased flatulence. Bladder: No dysuria, gross hematuria, urinary frequency, urinary urgency, or incontinence Breast: No breast lumps, nipple d/c, overlying skin changes, redness or skin retraction Allergies and current medication updated:Yes SENSITIVE EXAM: The sensitive examination was discussed with the Patient or Patient's Authorized Ingot Passer. As applicable, any other physician, advance practice provider, medical student, or other health professional student that will be observing or involved in the sensitive examination for educational or training purposes was discussed with the Patient or Authorized Ingot Passer. The Patient or Authorized Ingot Passer has agreed to proceed with the sensitive examination. (Sensitive examination includes inspection and/or palpation of the breasts, pelvis, prostate and anorectal regions). EXAM: BP 128/82 Ht 5' 5.25 (1.66m) Wt 225 lb (102.1kg) LMP 11/02/2024 BMI 37.17 kg/(m2). GENERAL: pleasant, female in no apparent distress HEENT: Normocephalic, atraumatic, mucus membranes moist, and no lesions NECK: Supple, full range of motion, no adenopathy, and thyroid normal DERMATOLOGY: Normal, without lesions, non-icteric, and non-hirsute BREAST: soft, non-tender, symmetric, no dominant mass, normal nipple-areolar complex, no lymphadenopathy, and no nipple discharge CHEST: Normal inspiratory effort ABDOMEN: soft, non-tender, and no masses PELVIC: external genitalia normal, normal Bartholin's glands, urethra, [place]'s glands, no vulvar lesions, no cervical lesions, good vaginal support, physiologic discharge present, normal appearing perineal body and perianal region BIMANUAL: uterus normal size, shape and consistency, no adnexal masses, and non-tender RECTOVAGINAL: deferred. NEURO: alert and oriented x3,exam grossly non-focal EXTREMITIES: normal ASSESSMENT/PLAN: 1) Health maintenance: Pap done with HPV. Mammogram ordered Colon cancer screening: up to date with screening cont txa prn 2) Follow up one year or sooner as needed Georgia Lucero MD Allergies As of Date: (more content not included)... Normal [facility] MARCOS SCREENING W TOMOon 01-10 MARCOS SCREENING W LA * * *Final Report* * * DATE OF EXAM: Jan 10 2025 2:42PM [id number] [id number] - MARCOS SCREENING W LA / PROCEDURE REASON: multiple diagnoses * * * * Physician Interpretation * * * * RESULT: [address] [address] [place] [address] #[id number] - MARCOS SCREENING W LA HISTORY: 54 year-old patient seen for screening. Patient is asymptomatic. Patient states no personal history of breast cancer. COMPARISON STUDIES: The present examination has been compared to prior imaging studies dated 10/16/2020 (mammogram), 11/19/2021 (mammogram), 10/21/2022 (mammogram) and 12/29/2023 (mammogram). MAMMOGRAM TECHNIQUE: The study was acquired using full field digital technology and interpreted from soft copy. Digital Breast Tomosynthesis (DBT) images were obtained and used to assist in the interpretation of this examination. MAMMOGRAM FINDINGS: There are scattered areas of fibroglandular density. No suspicious masses, calcifications or other abnormalities are seen in either breast. There are no significant interval changes. IMPRESSION: There is no mammographic evidence of malignancy in either breast. Routine screening mammogram is recommended. Annual mammogram will be due in 1 year. BI-RADS Category 1: Negative RISK: Based on the Tyrer-Cuzick (TC) risk assessment model, this patient has a 9.9% lifetime risk of developing breast cancer, meaning they are at average risk for developing breast cancer. However, this is only an estimate based on available history provided on the patient's questionnaire. We encourage all patients to talk with their providers about these results, further recommendations for managing breast health, and appropriate supplemental screening options if the patient has dense breast tissue. Interpreting Radiologist: Kristin Bahena M.D. Electronically signed on: 01/13/2025 Freight Forwarder: ALLYN Transcribe Date/Time: Jan 10 2025 2:31P Dictated by: KRISTIN BAHENA MD This examination was interpreted and the report reviewed and electronically signed by: KRISTIN BAHENA MD on Jan 13 2025 7:25AM EST [id number] N Normal [facility] MR/BMS.BPon 10-30-2024 MR/BMS.BP [facility] [address] [facility], [address] [place] [address] OFFICE VISIT Date of Service: 10/30/24 MR#: [id number] Acct: [id number] Name: KARMA KAPOOR Rep #: [id number] : 1970 Provider: Dr. Kian Ivan se, DO Age/Sex: 53/F Location: [facility] Status: Signed Intake Vital Signs 09/03/24 08:26 10/30/24 16:22 Height 5 ft 5 in 5 ft 5 in Weight: 226 lb BMI 37.5 BP 128/78 H Blood Pressure Location Lt brachial Position Sitting Respiration 16 Pulse 80 Pulse Source Monitor BP Intake Visit Reasons: 2 M FU Accompanied by: Self Allergies No Known Allergies Allergy (Verified 10/30/24 16:26) Medications ???Medication ???Instructions ???Recorded ???Confirmed ???Type calcium 600 mg (as carbonate)-vit 1 tablet PO DAILY 11/20/20 History D3 10 mcg (400 unit) chewable tablet (Calcium 600 with Vitamin D3) Cholecalciferol (Vitamin D3) 1 tablet PO DAILY 11/27/20 5 History [Vitamin D3] multivitamin 1 each PO DAILY 11/27/20 10/30/24 History lisinopril 20 mg tablet 40 mg PO DAILY 03/27/23 10/30/24 H istory pantoprazole 40 mg tablet,delayed mg PO 03/27/23 10/30/24 History release hydrochlorothiazide 12.5 mg capsule 25 mg PO 07/29/24 10/30/24 Hist ory turmeric root extract 500 mg 500 mg PO QDAY 07/29/24 10/30/24 H istory capsule escitalopram oxalate 20 mg tablet See Rx Instructions .Route 10/30/24 Rx .COMPLEX #90 tabs trazodone 100 mg tablet 100 mg PO QHS PRN sleep #90 tabs 1 10/21/23 10/30/24 Rx aripiprazole 15 mg tablet See Rx Instructions .Route 5 10/30/24 Rx .COMPLEX #90 tabs PFSH Medical History DIMA (generalized anxiety disorder) Unspecified psychosis Hypertension Positive colorectal cancer screening using Cologuard test Surgical History Hx of fracture of arm History of Family History Father Heart disease Hypertension Mother Hypertension Heart disease High cholesterol Brother High cholesterol Social History Smoking Status: Never smoker second hand exposure: No alcohol intake: never substance use type: does not use caffeine: Yes what type of physical activity do you participate in: walking frequency: 3-4 times per week HPI History of Present Illness History provided by: patient HPI: Karma Kapoor is a 53 year old female who presents today for follow up evaluation. Patient reports that she has been doing really good. Mood has been fairly good. Does feel somewhat tired, but has been busy outside of work. 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 Feels like medications are doing well. Does have some intermittent symptoms of feeling like hand cramps. continues to have some Meniere's disease issues. Denies any SI HI or AVH Review of Systems Constitutional Reports: fatigue and change in sleep pattern (improving); Denies: fever(s), chills or change in weight Eyes Denies: change in vision or blurry vision Ears, Nose, Mouth, Throat Denies: throat pain, neck pain or change in hearing Cardiovascular Reports: dyspnea; Denies: chest pain or palpitations Respiratory Reports: dyspnea; Denies: cough or wheezing Gastrointestinal Denies: abdominal pain, nausea, vomiting, diarrhea or constipation Genitourinary Denies: dysuria or urinary frequency Musculoskeletal Denies: back pain, neck pain, joint pain or muscle weakness Integumentary/Breast Denies: rash or new lesions Neurological Denies: headache(s), dizziness or confusion Endocrine Reports: fatigue; Denies: excessive sweating Hematologic/Lymphatic Denies: easy bruising or easy bleeding Allergic/Immunologic Denies: wheezing Exam Mental Status Exam - Psych Appearance casually dressed Attitude cooperative Activity/Motor Behavior MSE activity/motor behavior finding no adventitious movements Speech regular rate, regular volume and regular prosody Mood OK Affect full range Thought Process linear, logical and coherent Thought Content no delusions Suicidal Ideation none Homicidal Ideation none Attention intact Concentration intact Sensorium/Orientation awake, alert, oriented x3 and lethargic Memory/Cognition other (appropriate for stated age) Insight fair Judgement fair Assessment Plan Assessment Plan (1) Unspecified psychosis: Plan: -Doing very well with current medication combination of Abilify and Lexapro ??? Has had some mild thumb fore and middle finger cramping in recent past however sounds were consistent to something more similar to carpal alessandro (more content not included)... Normal [facility] MR/BMS.BPon 09-03-2024 MR/BMS.BP [facility] [facility], [address] [place] [address] OFFICE VISIT Date of Service: 09/03/24 MR#: [id number] Acct: [id number] Name: KARMA KAPOOR Rep #: [id number] : 1970 Provider: Dr. Kian Ivan se, DO Age/Sex: 53/F Location: [facility] Status: Signed Intake Vital Signs 07/29/24 16:22 09/03/24 08:25 09/03/24 08:26 Height 5 ft 5 in 5 ft 5 in 5 ft 5 in BP 131/82 H 146/85 H Blood Pressure Location Rt brachial Rt brachial Position Sitting Sitting Respiration 16 18 Pulse 89 85 Pulse Source Monitor Monitor BP Intake Visit Reasons: Follow up Allergies No Known Allergies Allergy (Verified 07/29/24 16:25) PFSH Medical History DIMA (generalized anxiety disorder) Unspecified psychosis Hypertension Positive colorectal cancer screening using Cologuard test Surgical History Hx of fracture of arm History of Family History Father Heart disease Hypertension Mother Hypertension Heart disease High cholesterol Brother High cholesterol Social History Smoking Status: Never smoker second hand exposure: No alcohol intake: never substance use type: does not use caffeine: Yes what type of physical activity do you participate in: walking frequency: 3-4 times per week HPI History of Present Illness History provided by: patient HPI: Karma Kapoor is a 53 year old female who presents today for follow up evaluation. Does feel a little foggy today but this has not been the norm. Has been using her light therapy lamp which has been helpful. Overall feels like she is sort of sleeping better but is still waking up 2x per night to go to restroom. Has found that she has been somewhat more forgetful in recent past. Has not had any recent delusional thought. Has been eating more with the holidays. continues to have some Meniere's disease issues. Anxiety has been fairly stable. Has had a little more depression, but is manageable. Review of Systems Constitutional Reports: fatigue and change in sleep pattern (improving); Denies: fever(s), chills or change in weight Eyes Denies: change in vision or blurry vision Ears, Nose, Mouth, Throat Denies: throat pain, neck pain or change in hearing Cardiovascular Reports: dyspnea; Denies: chest pain or palpitations Respiratory Reports: dyspnea; Denies: cough or wheezing Gastrointestinal Denies: abdominal pain, nausea, vomiting, diarrhea or constipation Genitourinary Denies: dysuria or urinary frequency Musculoskeletal Denies: back pain, neck pain, joint pain or muscle weakness Integumentary/Breast Denies: rash or new lesions Neurological Denies: headache(s), dizziness or confusion Endocrine Reports: fatigue; Denies: excessive sweating Hematologic/Lymphatic Denies: easy bruising or easy bleeding Allergic/Immunologic Denies: wheezing Exam Mental Status Exam - Psych Appearance casually dressed Attitude cooperative Activity/Motor Behavior MSE activity/motor behavior finding no adventitious movements Speech regular rate, regular volume and regular prosody Mood OK Affect restricted Thought Process linear, logical and coherent Thought Content no delusions Suicidal Ideation none Homicidal Ideation none Attention intact Concentration intact Sensorium/Orientation awake, alert, oriented x3 and lethargic Memory/Cognition other (appropriate for stated age) Insight fair Judgement fair Assessment Plan Assessment Plan (1) Unspecified psychosis: Plan: -did well with use of olanzapine in regards to returning to baseline, however has been feeling somewhat more fatigue/brain fog. Will taper olanzapine to discontinuation now that we have achieved relative stability. Could consider alternative to aripiprazole pending rodent exterminator stability. (2) DIMA (generalized anxiety disorder): Plan: - Continue lexapro for time being Medications: Discontinued olanzapine Discontinued Reason: Order Completed 2.5 mg PO QPM 30 tabs 1RF F29 - Unspecified psychosis not due to a substance or known physiological condition Coding Level of Care Code Off vis,est,level 4 Diagnoses Unspecified psychosis F29 DIMA (generalized anxiety disorder) F41.1 09/03/24 1324 Date Kian Randle Signature: Date (if applicable) CC: Normal [facility] MR/BMS.BPon 07-29-2024 MR/BMS.BP [facility] [address] [place] [address], [place] [address] OFFICE VISIT Date of Service: 07/29/24 MR#: [id number] Acct: [id number] Name: KARMA KAPOOR Rep #: [id number] : 1970 Provider: Dr. Kian Ivan se DO Age/Sex: 53/F Location: [facility] Status: Signed Intake Vital Signs 04/30/24 16:30 07/29/24 16:22 Height 5 ft 5 in 5 ft 5 in Weight: 221 lb BMI 36.8 BP 115/78 131/82 H Blood Pressure Location Rt brachial Rt brachial Position Sitting Sitting Respiration 16 16 Pulse 90 89 Pulse Source Monitor Monitor Pulse Oximetry (%) 97 Oxygen Delivery Method room air BP Intake Visit Reasons: 3 M FU Accompanied by: Self Allergies No Known Allergies Allergy (Verified 07/29/24 16:25) Medications ???Medication ???Instructions ???Recorded ???Confirmed ???Type calcium 600 mg (as carbonate)-vit 1 tablet PO DAILY 11/20/20 07/29/24 History D3 10 mcg (400 unit) chewable tablet (Calcium 600 with Vitamin D3) Cholecalciferol (Vitamin D3) 1 tablet PO DAILY 11/27/20 07/29/24 History [Vitamin D3] multivitamin 1 each PO DAILY 11/27/20 07/29/24 History lisinopril 20 mg tablet 40 mg PO DAILY 03/27/23 07/29/24 History pantoprazole 40 mg tablet,delayed mg PO 03/27/23 07/29/24 History release aripiprazole 15 mg tablet See Rx Instructions .Route 04/30/24 07/29/24 Rx .COMPLEX #90 tabs escitalopram oxalate 20 mg tablet See Rx Instructions .Route 04/30/24 07/29/24 Rx .COMPLEX #90 tabs trazodone 100 mg tablet 100 mg PO QHS PRN sleep #90 tabs 04/30/24 07/29/24 Rx hydrochlorothiazide 12.5 mg capsule 25 mg PO 07/29/24 07/29/24 History olanzapine 2.5 mg tablet 2.5 mg PO QPM #30 tabs 07/29/24 07/29/24 Rx turmeric root extract 500 mg 500 mg PO QDAY 07/29/24 07/29/24 History capsule PFSH Medical History DIMA (generalized anxiety disorder) Unspecified psychosis Hypertension Positive colorectal cancer screening using Cologuard test Surgical History Hx of fracture of arm History of Family History Father Heart disease Hypertension Mother Hypertension Heart disease High cholesterol Brother High cholesterol Social History Smoking Status: Never smoker second hand exposure: No alcohol intake: never substance use type: does not use caffeine: Yes what type of physical activity do you participate in: walking frequency: 3-4 times per week HPI History of Present Illness History provided by: patient HPI: Karma Kapoor is a 53 year old female who presents today for follow up evaluation. Patient's has Meniere's disease and has been sick in recent past. Has not been getting good sleep because she has been helping him when has bouts. Admits that she has been hyper because of this lack of sleep. Was getting on average about 3 hours at night. She was feeling tired during this time. Has also had some significant stress in putting in assessment on children which were due last week. Started having some AH from other people who were saying things that she had done wrong. Describes some mild persecutory delusional type thought. Went to the principal twice to report that she was feeling paranoid about others talking about her. Describes walking past others in [facility] and thinking that they were talking about her and her coworker. Did sleep well Monday and symptoms seemed better on Monday. Didn't sleep all that well last night and got about 4 hours last night. Denies significant depression. Does feel somewhat more anxious. Review of Systems Constitutional Reports: fatigue and change in sleep pattern; Denies: fever(s), chills or change in weight Eyes Denies: change in vision or blurry vision Ears, Nose, Mouth, Throat Denies: throat pain, neck pain or change in hearing Cardiovascular Reports: dyspnea; Denies: chest pain or palpitations Respiratory Reports: dyspnea; Denies: cough or wheezing Gastrointestinal Denies: abdominal pain, nausea, vomiting, diarrhea or constipation Genitourinary Denies: dysuria or urinary frequency Musculoskeletal Denies: back pain, neck pain, joint pain or muscle weakness Integumentary/Breast Denies: rash or new lesions Neurological Denies: headache(s), dizziness or confusion Endocrine Reports: fatigue; Denies: excessive sweating Hematologic/Lymphatic Denies: easy bruising or easy bleeding Allergic/Immunologic Denies: wheezing Exam Mental Status Exam - Psych Appearance casually dressed Attitude cooperative Activity/Motor Behavior MSE activity/motor behavior finding no adventitious movements Speech regular ra (more content not included)... Normal [facility] Basic Metabolic Profile (BMP )on 06-18-2024 BUN/CRE 10.4 RATIO Normal 06-23 [facility] Comment on above: Order Comment: Order Date: 06/03/24 Order Info: [id number] - [facility] WASHTUB WORKER HELPER TO SPECIFY Performed By: #### L [id number] #### [facility] [address] [place], [address] CA,Total 9.3 mg/dL Normal 8.5-10.1 [facility] Comment on above: Order Comment: Order Date: 06/03/24 Order Info: [id number] - [facility] WASHTUB WORKER HELPER TO SPECIFY Performed By: #### L [id number] #### [facility] [address] [place], [address] Chloride [Moles/Vol] 100 mmol/L Normal 98-107 [facility] Comment on above: Order Comment: Order Date: 06/03/24 Order Info: [id number] - [facility] WASHTUB WORKER HELPER TO SPECIFY Performed By: #### L [id number] #### [facility] [address] [place], [address] CO2 [Moles/Vol] 30.0 mmol/L Normal 21.0-32.0 [facility] Comment on above: Order Comment: Order Date: 06/03/24 Order Info: [id number] - [facility] WASHTUB WORKER HELPER TO SPECIFY Performed By: #### L [id number] #### [facility] [address] [place], [address] Creatinine [Mass/Vol] 1.15 mg/dL High 0.55-1.02 [facility] Comment on above: Order Comment: Order Date: 06/03/24 Order Info: [id number] - [facility] WASHTUB WORKER HELPER TO SPECIFY Result Comment: The validity of the calculated GFR GFRAA in patients over 70 years has not been determined. Clinical correlation is essential. Performed By: #### L [id number] #### [facility] [address] [place], [address] EST GFR - AA 63 mL/min Normal >60 [facility] Comment on above: Order Comment: Order Date: 06/03/24 Order Info: [id number] - [facility] WASHTUB WORKER HELPER TO SPECIFY Result Comment: Afri can Spanish GFR Calc Performed By: #### L [id number] #### [facility] [address] [place], [address] GAP 6 Normal 5-15 [facility] Comment on above: Order Comment: Order Date: 06/03/24 Order Info: [id number] - [facility] WASHT[employer] WORKER HELPER TO SPECIFY Performed By: #### L [id number] #### [facility] [address] [place], [address] GFR/1.73 sq M.predicted among non-blacks MDRD (S/P/Bld) [Vol rate/Area] 52 mL/min/{1.73_m2} Low >60 [facility] Comment on above: Order Comment: Order Date: 06/03/24 Order Info: [id number] - [facility] WASHT[employer] WORKER HELPER TO SPECIFY Result Comment: Non- GFR Calc Performed By: #### L [id number] #### [facility] [address] [place], [address] Glucose [Mass/Vol] 93 mg/dL Normal 74-106 [facility] Comment on above: Order Comment: Order Date: 06/03/24 Order Info: [id number] - [facility] WASHT[employer] WORKER HELPER TO SPECIFY Performed By: #### L [id number] #### [facility] [address] [place], [address] Potassium [Moles/Vol] 3.6 mmol/L Normal 3.5-5.1 [facility] Comment on above: Order Comment: Order Date: 06/03/24 Order Info: [id number] - [facility] WAS[employer] WORKER HELPER TO SPECIFY Performed By: #### L [id number] #### [facility] [address] [place], [address] Sodium [Moles/Vol] 136 mmol/L Normal 136-145 [facility] Comment on above: Order Comment: Order Date: 06/03/24 Order Info: [id number] - [facility] WASHT[employer] WORKER HELPER TO SPECIFY Performed By: #### L [id number] #### [facility] [address] [place], [address] Urea nitrogen [Mass/Vol] 12 mg/dL Normal 7-18 [facility] Comment on above: Order Comment: Order Date: 06/03/24 Order Info: [id number] - [facility] WASHT[employer] WORKER HELPER TO SPECIFY Performed By: #### L [id number] #### [facility] [address] [place], [address] Basic Metabolic Profile (BMP )on 06-04-2024 BUN/CRE 14.3 RATIO Normal 10-20 [facility] Comment on above: Order Comment: Order Date: 06/03/24 Order Info: [id number] [place] [address] WASHTUB WORKER HELPER TO SPECIFY Performed By: #### L [id number] #### [facility] [address] [place], [address] CA,Total 9.5 mg/dL Normal 8.5-10.1 [facility] Comment on above: Order Comment: Order Date: 06/03/24 Order Info: [id number] [facility] WASHTUB WORKER HELPER TO SPECIFY Performed By: #### L [id number] #### [facility] [address] [place], [address] Chloride [Moles/Vol] 100 mmol/L Normal 98-107 [facility] Comment on above: Order Comment: Order Date: 06/03/24 Order Info: [address] [place] [address] WASHTUB WORKER HELPER TO SPECIFY Performed By: #### L [id number] #### [facility] [address] [place], [address] CO2 [Moles/Vol] 30.0 mmol/L Normal 21.0-32.0 [facility] Comment on above: Order Comment: Order Date: 06/03/24 Order Info: [id number] - [facility] WAS[employer] WORKER HELPER TO SPECIFY Performed By: #### L [id number] #### [facility] [address] [place], [address] Creatinine [Mass/Vol] 1.12 mg/dL High 0.55-1.02 [facility] Comment on above: Order Comment: Order Date: 06/03/24 Order Info: [id number] - [facility] WASHTUB WORKER HELPER TO SPECIFY Result Comment: The validity of the calculated GFR GFRAA in patients over 70 years has not been determined. Clinical correlation is essential. Performed By: #### L [id number] #### [facility] [address] [place], [address] EST GFR - AA 65 mL/min Normal >60 [facility] Comment on above: Order Comment: Order Date: 06/03/24 Order Info: [id number] - [facility] WASHT[employer] WORKER HELPER TO SPECIFY Result Comment: Afri can Spanish GFR Calc Performed By: #### L [id number] #### [facility] [address] [place], [address] GAP 6 Normal 5-15 [facility] Comment on above: Order Comment: Order Date: 06/03/24 Order Info: [id number] - [facility] WAS[employer] WORKER HELPER TO SPECIFY Performed By: #### L [id number] #### [facility] [address] [place], [address] GFR/1.73 sq M.predicted among non-blacks MDRD (S/P/Bld) [Vol rate/Area] 54 mL/min/{1.73_m2} Low >60 [facility] Comment on above: Order Comment: Order Date: 06/03/24 Order Info: [id number] - [facility] WASHTUB WORKER HELPER TO SPECIFY Result Comment: Non- GFR Calc Performed By: #### L [id number] #### [facility] [address] [place], [address] Glucose [Mass/Vol] 89 mg/dL Normal 74-106 [facility] Comment on above: Order Comment: Order Date: 06/03/24 Order Info: [id number] - [facility] WASHT[employer] WORKER HELPER TO SPECIFY Performed By: #### L [id number] #### [facility] [address] [place], [address] Potassium [Moles/Vol] 3.8 mmol/L Normal 3.5-5.1 [facility] Comment on above: Order Comment: Order Date: 06/03/24 Order Info: [id number] - [facility] WASHT[employer] WORKER HELPER TO SPECIFY Performed By: #### L [id number] #### [facility] [address] [place], [address] Sodium [Moles/Vol] 136 mmol/L Normal 136-145 [facility] Comment on above: Order Comment: Order Date: 06/03/24 Order Info: [id number] - [facility] WASHT[employer] WORKER HELPER TO SPECIFY Performed By: #### L [id number] #### [facility] [address] [place], [address] Urea nitrogen [Mass/Vol] 16 mg/dL Normal 7-18 [facility] Comment on above: Order Comment: Order Date: 06/03/24 Order Info: [id number] - [facility] WASHT[employer] WORKER HELPER TO SPECIFY Performed By: #### L [id number] #### [facility] [address] [place], [address] CBC-Complete Blood [facility] Erythrocyte distribution width (RBC) [Ratio] 13.3 % Normal 11.6-14.6 [facility] Comment on above: Order Comment: Order Date: 06/03/24 Order Info: [id number] - [facility] WASHT[employer] WORKER HELPER TO SPECIFY Performed By: #### L [id number] #### [facility] [address] [place], [address] Hematocrit (Bld) [Volume fraction] 36.5 % Low 37-47 [facility] Comment on above: Order Comment: Order Date: 06/03/24 Order Info: [id number] - [facility] WASHT[employer] WORKER HELPER TO SPECIFY Performed By: #### L [id number] #### [facility] [address] [place], [address] Hemoglobin (Bld) [Mass/Vol] 11.9 g/dL Low 12.0-15.0 [facility] Comment on above: Order Comment: Order Date: 06/03/24 Order Info: [id number] WASHTUB WORKER HELPER TO SPECIFY Performed By: #### L [id number] #### [facility] [address] [place], [address] MCH (RBC) [Entitic mass] 30.0 pg Normal 27.0-32.0 [facility] Comment on above: Order Comment: Order Date: 06/03/24 Order Info: [address] [place] [address] WASHTUB WORKER HELPER TO SPECIFY Performed By: #### L [id number] #### [facility] [address] [place], [address] MCHC (RBC) [Mass/Vol] 32.6 g/dL Normal 32-36 [facility] Comment on above: Order Comment: Order Date: 06/03/24 Order Info: [address] [place] [address] WASHTUB WORKER HELPER TO SPECIFY Performed By: #### L [id number] #### [facility] [address] [place], [address] MCV (RBC) [Entitic vol] 91.9 fL Normal 81-99 [facility] Comment on above: Order Comment: Order Date: 06/03/24 Order Info: [id number] WASHTUB WORKER HELPER TO SPECIFY Performed By: #### L [id number] #### [facility] [address] [place], [address] Platelet mean volume (Bld) [Entitic vol] 8.3 fL Normal 6.2-12.0 [facility] Comment on above: Order Comment: Order Date: 06/03/24 Order Info: [id number] WASHTUB WORKER HELPER TO SPECIFY Performed By: #### L [id number] #### [facility] [address], [address] Platelets (Bld) [#/Vol] 383 10*3/uL Normal 150-450 [facility] Comment on above: Order Comment: Order Date: 06/03/24 Order Info: [id number] [facility] WASHTUB WORKER HELPER TO SPECIFY Performed By: #### L [id number] #### [facility] [address] [place], [address] RBC (Bld) [#/Vol] 3.97 10*6/uL Low 4.2-5.4 [facility] Comment on above: Order Comment: Order Date: 06/03/24 Order Info: [address] [place] [address] WASHTUB WORKER HELPER TO SPECIFY Performed By: #### L [id number] #### [facility] [address] [place], [address] RDW SD 45.5 fl High 35.1-43.9 [facility] Comment on above: Order Comment: Order Date: 06/03/24 Order Info: [address] [place] [address] WASHTUB WORKER HELPER TO SPECIFY Performed By: #### L [id number] #### [facility] [address] [place], [address] WBC (Bld) [#/Vol] 6.4 10*3/uL Normal 4.4-11.0 [facility] Comment on above: Order Comment: Order Date: 06/03/24 Order Info: [id number] WASHTUB WORKER HELPER TO SPECIFY Performed By: #### L [id number] #### [facility] [address] [place], [address] Thyroid Stim Hormone (TSH)on 06-04-2024 TSH 2.720 uIU/mL Normal 0.358-3.740 [facility] Comment on above: Order Comment: Order Date: 06/03/24 Order Info: [address] [place] [address] WASHTUB WORKER HELPER TO SPECIFY Performed By: #### L [id number] #### [facility] [address] [place], [address] Urinalysis, Completeon 06-04 EPI,SQUAMOUS 5-10 SEEN Normal 5-10 [facility] Comment on above: Order Comment: Order Date: 06/03/24 Order Info: [address] [place] [address] WASHTUB WORKER HELPER TO SPECIFY Performed By: #### L [id number] #### [facility] [address] [place], [address] RBC 0-5 SEEN Normal 0-5 [facility] Comment on above: Order Comment: Order Date: 06/03/24 Order Info: [address] [place] [address] WASHTUB WORKER HELPER TO SPECIFY Performed By: #### L [id number] #### [facility] [address] [facility] [address] WBC 0-5 SEEN Normal 0-5 [facility] Comment on above: Order Comment: Order Date: 06/03/24 Order Info: [address] [place] [address] WASHTUB WORKER HELPER TO SPECIFY Performed By: #### L [id number] #### [facility] [address] [facility] [address] BACTERIA RARE Normal None Seen [facility] Comment on above: Order Comment: Order Date: 06/03/24 Order Info: [address] [place] [address] WASHTUB WORKER HELPER TO SPECIFY Performed By: #### L [id number] #### [facility] [address] [place], [address] Mucus Ql (Urine sed) 0 SEEN Normal [facility] Comment on above: Order Comment: Order Date: 06/03/24 Order Info: [address] [place] [address] WASHTUB WORKER HELPER TO SPECIFY Performed By: #### L [id number] #### [facility] [address] [facility] [address] MR/BMS.BPon 04-30-2024 MR/BMS.BP [place] [address] [facility], [address] [place] [address] OFFICE VISIT Date of Service: 04/30/24 MR#: [id number] Acct: [id number] Name: KARMA KAPOOR Rep #: [id number] : 1970 Provider: Dr. Kian Ivan se, DO Age/Sex: 53/F Location: [facility] Status: Signed Intake Vital Signs 02/08/24 10:06 04/30/24 16:29 04/30/24 16:30 Height 5 ft 5 in 5 ft 5 in 5 ft 5 in Weight: 221 lb BMI 36.8 BP 115/78 Blood Pressure Location Rt brachial Position Sitting Respiration 16 Pulse 90 Pulse Source Monitor Pulse Oximetry (%) 97 Oxygen Delivery Method room air BP Intake Visit Reasons: 2 M FU Accompanied by: Self Is patient in pain?: No Allergies No Known Allergies Allergy (Verified 04/30/24 16:29) Medications ???Medication ???Instructions ???Recorded ???Confirmed ???Type calcium carbonate 600 mg-vitamin 1 tablet PO DAILY 11/20/20 04/30/24 History D3 10 mcg (400 unit) chewable tablet (Calcium 600 with Vitamin D3) Cholecalciferol (Vitamin D3) 1 tablet PO DAILY 11/27/20 04/30/24 History [Vitamin D3] multivitamin 1 each PO DAILY 11/27/20 04/30/24 History lisinopril 20 mg tablet 40 mg PO DAILY 03/27/23 04/30/24 History pantoprazole 40 mg tablet,delayed mg PO 03/27/23 04/30/24 History release hydrochlorothiazide 12.5 mg capsule mg PO 08/30/23 04/30/24 History aripiprazole 15 mg tablet See Rx Instructions .Route 04/30/24 04/30/24 Rx .COMPLEX #90 tabs escitalopram oxalate 20 mg tablet See Rx Instructions .Route 04/30/24 04/30/24 Rx .COMPLEX #90 tabs trazodone 100 mg tablet 100 mg PO QHS PRN sleep #90 tabs 04/30/24 Rx PFSH Medical History DIMA (generalized anxiety disorder) Unspecified psychosis Hypertension Positive colorectal cancer screening using Cologuard test Surgical History Hx of fracture of arm History of Family History Father Heart disease Hypertension Mother Hypertension Heart disease High cholesterol Brother High cholesterol Social History Smoking Status: Never smoker second hand exposure: No alcohol intake: never substance use type: does not use caffeine: Yes what type of physical activity do you participate in: walking frequency: 3-4 times per week HPI History of Present Illness History provided by: patient HPI: Karma Kapoor is a 53 year old female who presents today for follow up evaluation. Has been doing much better with sleep since turning her clock backwards so she can't look on it. Mom was essentially living with patient because brother had been sick with cancer and needed surgery. She just recently returned to live with brother. Her mom hurt her back recently and now Karma is taking her to PT twice a week until end of May. This week has been doing a little bit better energy villagran. Did go on vacation and was able to enjoy herself in February. Does continue to feel tired but attributes this to life situation. Will be going camping in [place] this weekend. Has been taking medications without significant difficulty. Denies any new side effects. Denies SI/HI or AVH. Review of Systems Constitutional Reports: fatigue; Denies: fever(s), chills or change in weight Eyes Denies: change in vision or blurry vision Ears, Nose, Mouth, Throat Denies: throat pain, neck pain or change in hearing Cardiovascular Reports: dyspnea; Denies: chest pain or palpitations Respiratory Reports: dyspnea; Denies: cough or wheezing Gastrointestinal Denies: abdominal pain, nausea, vomiting, diarrhea or constipation Genitourinary Denies: dysuria or urinary frequency Musculoskeletal Denies: back pain, neck pain, joint pain or muscle weakness Integumentary/Breast Denies: rash or new lesions Neurological Denies: headache(s), dizziness or confusion Endocrine Reports: fatigue; Denies: excessive sweating Hematologic/Lymphatic Denies: easy bruising or easy bleeding Allergic/Immunologic Denies: wheezing Exam Mental Status Exam - Psych Appearance casually dressed and no apparent distress Attitude cooperative and pleasant Activity/Motor Behavior MSE activity/motor behavior finding no adventitious movements Speech regular rate, regular volume and regular prosody Mood euythmic Affect full range Thought Process linear, logical and coherent Thought Content no delusions and no hallucinations Suicidal Ideation none Homicidal Ideation none Attention intact Concentration intact Sensorium/Orientation awake, alert and oriented x3 Memory/Cognition other (appropriate for stated age) Insight good Strip Stamp Straightener (more content not included)... Normal [facility] CT CARDIAC SCORING WO IV CON TRASTon 04-17-2024 CT CARDIAC SCORING WO IV CONTRAST Interpreted By: Jose Gupta, STUDY: CT CARDIAC SCORING WO IV CONTRAST; 04/17/2024 9:06 am INDICATION: Signs/Symptoms:SCREEN ING. COMPARISON: None. ACCESSION NUMBER(S): [id number] ORDERING CLINICIAN: VICKEY DEL TORO TECHNIQUE: Using prospective ECG gating, CT scan of the coronary arteries was performed without intravenous contrast. Coronary calcium scoring was performed according to the method of Agatston. FINDINGS: The score and distribution of calcium in the coronary arteries is as follows: LM 0 LAD 0 LCx 0 RCA 15.65 Total 15.65 The heart size is normal and there is no pericardial effusion. The chest vasculature is unremarkable.There is no significant mediastinal or hilar adenopathy. The visualized lungs are clear. The visualized upper abdominal contents are within normal limits. The bony structures are intact. IMPRESSION: Coronary artery calcium score of 15.65 Coronary artery calcium scoring may be helpful in predicting the risk for future coronary heart disease events. According to the [employer] Clinical Expert Consensus Task Force, such testing provides important prognostic information in patients with more than one coronary heart disease risk factor. The coronary artery calcium score correlates with the annual risk of a non-fatal myocardial infarction or coronary heart disease . Coronary artery score Annual Risk 0-99 0.4% 100-399 1.3% >400 2.4% These three breakpoints correspond to lower, intermediate and high risk states for future coronary events. Such information should be used, along with appropriate clinical judgment, to make decisions regarding the intensity of risk factor management strategies to treat blood lipids and to modify other non-lipid coronary risk factors. Reference: Casie P et al. Circulation. 2007; 115:402-426 Signed by: Jose Gupta 04/19/2024 5:05 PM Dictation workstation: [id number] [facility] CNOVon 04-04-2024 CNOV Office Visit (OBGYWM ) KARMA KAPOOR ([id number]) 1970 F Date Time Provider Department 04/04/24 10:45 AM ANDRE WILD During your visit today, we recorded the following information about you: Pulse Respiration Blood pressure Weight 82/minute 12/minute 122/84 98.9 kg Last Period 02/05/24 Andre Wild APRN.[employer] 04/04/2024 11:02 AM Signed Electric Clock Mechanic offered: Patient declines. Karma Kapoor is a 53 year old female who presents for a follow up of a vulvar cyst. HPI: Karma was seen on 03/04/24 for a hard pea sized lump. It was resolving at time of visit on 03/04. A 0.5 cm pink smooth symmetrical lesion to the left labia majora, slightly raised, without scabbing, drainage, swelling or erythema. She reports that she thought she felt something about a 1 week, but has resolved and no further concerns. OB History T3 L3 SAB0 IAB0 Ectopic0 Multiple0 Live Births3 Police Liaison History LMP: 02/05/2024 (Approximate), Having periods Age at Menarche: Age at First : Age at Menopause: Police Liaison History Comments: Sexual Activity: Yes; Male Contraception: Tubal Ligation PAST MEDICAL HISTORY No date: Generalized anxiety disorder Comment: Dr. Jessica hawley No date: Other and unspecified hyperlipidemia Comment: Hyperlipidemia PAST SURGICAL HISTORY No date: DELIVERY ONLY Comment: x 3/ with the first one she needed two units of blood because she was bleeding out vaginally. No date: LIG/TRNSXJ FLP TUBE ABDL/VAG APPR UNI/BI Comment: Tubal ligation No date: PAST SURGICAL HISTORY OF Comment: pins/fx right arm No date: PAST SURGICAL HISTORY OF Comment: WISDOM TEETH FAMILY HISTORY Problem Relation Age of Onset Lipids Mother Stroke Mother 88 Heart Father age 50's of massive PA; known CAD prior? Hypertension Father Lipids Sister Lipids Brother other (Clean cell cancer) Brother Heart Maternal Grandfather of a massive PA Heart Paternal Grandfather CHF, age 90's Social History Tobacco Use Smoking status: Never Smokeless tobacco: Never Vaping Use Vaping Use: Never used Substance Use Topics Alcohol use: Not Currently Drug use: Never Current Outpatient Medications Medication Sig lisinopril (ZESTRIL) 40 mg tablet Take 1 tablet by mouth every afternoon. meloxicam (MOBIC) 15 mg tablet Take 1 tablet by mouth every afternoon. pantoprazole DR (PROTONIX) 40 mg tablet TAKE 1 TABLET BY MOUTH ONCE DAILY BEFORE MORNING MEAL traZODone (DESYREL) 100 mg tablet Take 100 mg by mouth daily at bedtime. hydroCHLOROthiazide 12.5 mg capsule Take 1 capsule by mouth every afternoon. ARIPiprazole (ABILIFY) 15 mg tablet Take 15 mg by mouth once daily. escitalopram oxalate (LEXAPRO) 20 mg tablet Take 20 mg by mouth once daily. tranexamic acid (LYSTEDA) 650 mg tablet Take 2 tablets by mouth three times daily as needed (heavy menstrual bleeding) for up to 5 days. Cholecalciferol, Vitamin D3, 3,000 unit tab Take by mouth once daily. calcium carbonate 600 mg-cholecalciferol 200 units (CALCIUM 600 + D,3,) 600 mg(1,500mg) -200 unit Tab Take 1 tablet by mouth twice daily. multivits w-ca,fe,other min(ONE-A-DAY WOMENS FORMULA 27 MG-0.4 MG TAB) Take by mouth once daily. No current facility-administered medications for this visit. 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 bleeding, abnormal vaginal discharge Allergies and current medication updated:Yes EXAM: BP 122/84 Pulse 82 Resp 12 Wt 218 lb (98.9kg) SpO2 96% LMP 02/05/2024 GENERAL: pleasant, female in no apparent distress HEENT: Normocephalic, atraumatic, mucus membranes moist, and no lesions CHEST: Normal inspiratory effort PELVIC: external genitalia normal, normal Bartholin's glands, urethra, Brucet[place]'s glands, no vulvar lesions, no cervical lesions, good vaginal support, physiologic discharge present, normal appearing perineal body and perianal region NEURO: alert and oriented x3,exam grossly non-focal EXTREMITIES: normal ASSESSMENT AND PLAN: 1. Vulvar cyst - ICD9: 624.8, ICD10: N90.7 - Totally resolved, not seen on exam - Patient denies any further concerns - To follow up if resurfaces any other issues RTO for annual in December or sooner as needed. Andre Wild APRN.CNP Medical Decision Making: Problems: Minimal: Self-limited or minor problem Medical Decision Making Level: 2 - Straightforward Allergies As of Date: 04/04/2024 (No Known Allergies) Date Reviewed: 04/04/2024 Reviewed by: Andre Wild APRN.CNP - Fully Assessed Reason for Visit: Vaginal Problem [117] Primary Visit Diagnosis:Vulvar cyst [N90.7] Prescriptions as of 04/04/2024 - lisinopril (ZESTRIL) 40 mg tablet Take 1 tablet by mouth every afternoon. - meloxicam (MOBIC) 15 mg table (more content not included)... Normal [facility] CNOVon 03-04-2024 CNOV Office Visit (OBGYWM ) KARMA KAPOOR ([id number]) 1970 F Date Time Provider Department 03/04/24 8:15 AM ANDRE WILD During your visit today, we recorded the following information about you: Pulse Respiration Blood pressure Weight 88/minute 14/minute 140/84 101.2 kg Last Period 02/05/24 Andre Wild APRN.CNP 03/04/2024 8:38 AM Signed Electric Clock Mechanic offered: Patient declines. Karma Kapoor is a 53 year old female who presents for problem visit of a vulvar cyst. HPI: Karma noticed a hard pea sized lump on vacation about a week ago. She states that it is now a tear drop shape and has softened. She woke up really hot and sweating one night on vacation. She thought she had this in December with her annual, but forgot to mention it. She thinks it's smaller and almost gone at this point. It was never extremely tender, red, or swollen. Brother recently diagnosed with cancer. OB History T3 L3 SAB0 IAB0 Ectopic0 Multiple0 Live Births3 Police Liaison History LMP: 12/22/2023 (Exact Date), Having periods Age at Menarche: Age at First : Age at Menopause: Police Liaison History Comments: Sexual Activity: Yes; Male Contraception: Tubal Ligation PAST MEDICAL HISTORY Diagnosis Date Generalized anxiety disorder Dr. Jessica hawley Other and unspecified hyperlipidemia Hyperlipidemia PAST SURGICAL HISTORY Procedure Laterality Date DELIVERY ONLY x 3/ with the first one she needed two units of blood because she was bleeding out vaginally. LIG/TRNSXJ FLP TUBE ABDL/VAG APPR UNI/BI Tubal ligation PAST SURGICAL HISTORY OF pins/fx right arm PAST SURGICAL HISTORY OF WISDOM TEETH FAMILY HISTORY Problem Relation Age of Onset Lipids Mother Stroke Mother 88 Heart Father age 50's of massive PA; known CAD prior? Hypertension Father Lipids Sister Lipids Brother Heart Maternal Grandfather of a massive PA Heart Paternal Grandfather CHF, age 90's Social History Tobacco Use Smoking status: Never Smokeless tobacco: Never Vaping Use Vaping Use: Never used Substance Use Topics Alcohol use: No Drug use: No Current Outpatient Medications Medication Sig lisinopril (ZESTRIL) 40 mg tablet Take 1 tablet by mouth every afternoon. meloxicam (MOBIC) 15 mg tablet Take 1 tablet by mouth every afternoon. pantoprazole DR (PROTONIX) 40 mg tablet TAKE 1 TABLET BY MOUTH ONCE DAILY BEFORE MORNING MEAL traZODone (DESYREL) 100 mg tablet hydroCHLOROthiazide 12.5 mg capsule Take 1 capsule by mouth every afternoon. ARIPiprazole (ABILIFY) 15 mg tablet escitalopram oxalate (LEXAPRO) 20 mg tablet tranexamic acid (LYSTEDA) 650 mg tablet Take 2 tablets by mouth three times daily as needed (heavy menstrual bleeding) for up to 5 days. QUEtiapine (SEROQUEL) 100 mg tablet 150 mg. (Patient not taking: Reported on 12/29/2023) Cholecalciferol, Vitamin D3, 3,000 unit tab Take by mouth. calcium carbonate 600 mg-cholecalciferol 200 units (CALCIUM 600 + D,3,) 600 mg(1,500mg) -200 unit Tab Take 1 tablet by mouth twice daily. multivits w-ca,fe,other min(ONE-A-DAY WOMENS FORMULA 27 MG-0.4 MG TAB) No current facility-administered medications for this visit. 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: + vulvar cyst Allergies and current medication updated:Yes EXAM: BP 140/84 Pulse 88 Resp 14 Wt 223 lb (101.2kg) SpO2 97% LMP 02/05/2024 GENERAL: pleasant, female in no apparent distress HEENT: Normocephalic, atraumatic, mucus membranes moist, and no lesions CHEST: Normal inspiratory effort PELVIC: external genitalia normal, normal Bartholin's glands, urethra, [place]'s glands, + 0.5 cm pink smooth, symmetrical lesion to left labia majora, slightly raised, no scabbing, drainage, swelling or erythema, non tender, normal appearing perineal body and perianal region NEURO: alert and oriented x3,exam grossly non-focal EXTREMITIES: normal ASSESSMENT AND PLAN: 1. Vulvar cyst - ICD9: 624.8, ICD10: N90.7 - Appears to be resolving cyst - Keep area clean and dry - RTO in 4 weeks to ensure resolution - RTO sooner if painful, increasing in size, draining, or other concerns. Andre Wild APRN.CNP Medical Decision Making: Problems: Minimal: Self-limited or minor problem Risk: Minimal: Minimal risk from testing/treatment Medical Decision Making Level: 2 - Straightforward Andre Wild APRN.CNP 03/04/2024 8:38 AM Signed Keep area clean and dry. Please follow up in 4 weeks or sooner if symptoms resurface. Allergies As of Date: 03/04/2024 (No Known Allergies) Date Reviewed: 03/04/2024 Reviewed by: Andre Wild APRN.CNP - Fully Assessed Reason for Visit: Possible cyst [Other] Primary Visit Diagnosis:Vulvar cyst [N90.7] Prescriptions as of 03/04/2024 - lisinop (more content not included)... Normal [facility] Basophil percentageon 2021 Bilirubin [Mass/Vol] 0.40 mg/dL 0.20-1.00 [facility] Work Phone: Comment on above: For patients on eltr ombopag therapy, use of Dimension [place] TBIL is not recommended. Chloride [Moles/Vol] 100 mmol/L 98-107 [facility] Work Phone: Cholesterol [Mass/Vol] 254 mg/dL <200 [facility] Work Phone: Comment on above: <200 mg/dL Desirable 200-240 mg/dL Borderline >240 mg/dL High Risk Glucose [Mass/Vol] 90 mg/dL 74-106 [facility] Work Phone: Potassium [Moles/Vol] 4.0 mmol/L 3.5-5.1 [facility] Work Phone: Protein [Mass/Vol] 7.3 g/dL 6.4-8.2 [facility] Work Phone: Sodium [Moles/Vol] 138 mmol/L 136-145 [facility] Work Phone: Triglyceride [Mass/Vol] 176 mg/dL <199 [facility] Work Phone: Comment on above: The drugs N-Acetylcy steine and Metamizole may falsely depress this assay.Serum Triglycerides Reference Interval Normal <150 mg/dL Borderline high 150 - 199 mg/dL High 200 - 499 mg/dL Very High > or = 500 mg/dL Laboratory - Chemistry and C hemistry - challengeon 03-21-2022 ALP [Catalytic activity/Vol] 64 U/L 45-117 [facility] Work Phone: ALT [Catalytic activity/Vol] 40 U/L 13-56 [facility] Work Phone: CO2 [Moles/Vol] 27.0 mmol/L 21.0-32.0 [facility] Work Phone: Globulin (S) [Mass/Vol] 3.6 g/dL 2.2-4.2 [facility] Work Phone: Urea nitrogen/Creatinine [Mass ratio] 9.7 mg/mg 10-20 [facility] Work Phone: No Panel Informationon 03-21 Estimated GFR (MDRD) Amer 82 mL/min >60 [facility] Work Phone: Comment on above: GFR Calc Estimated GFR (MDRD) Non-Af Amer 68 mL/min >60 [facility] Work Phone: Comment on above: Non- GFR Calc Thyroid Stimulating Hormone (TSH) 2.03 uIU/mL 0.358-3.74 [facility] Work Phone: Vitamin D 25-Hydroxy 59.8 ng/mL [facility] Work Phone: Comment on above: Vitamin D 25(OH) Sta tus Range Deficiency <20 ng/mL (50nmol/L) Insufficiency 20 - 30 ng/mL (50 - 75 nmol/L) Sufficiency 30 - 100 ng/mL (75 - 250 nmol/L) Toxicity >100 ng/mL (>250 nmol/L) Serum or plasma albumin anupama urement (mass/volume)on 03-21-2022 Albumin [Mass/Vol] 3.7 g/dL 3.2-5.0 [facility] Work Phone: Serum or plasma albumin/glob ulin mass ratioon 03-21-2022 Albumin/Globulin [Mass ratio] 1.0 {ratio} 0.9-2.4 [facility] Work Phone: Serum or plasma calcium anupama urement (mass/volume)on 03-21-2022 Calcium [Mass/Vol] 8.6 mg/dL 8.5-10.1 [facility] Work Phone: Serum or plasma cholesterol in HDL measurement (mass/volume)on 03-21-2022 Cholesterol in HDL [Mass/Vol] 45 mg/dL >40 [facility] Work Phone: Comment on above: The drugs N-Acetylcy steine and Metamizole may falsely depress this assay. Reference Range HDL <40 mg/dL Low HDL Cholesterol HDL >or= 60 mg/dL High HDL Cholesterol Serum or plasma cholesterol in VLDL measurement (mass/volume)on 03-21-2022 Cholesterol in VLDL [Mass/Vol] 35 mg/dL 5-40 [facility] Work Phone: Serum or plasma creatinine m easurement (mass/volume)on 03-21-2022 Creatinine [Mass/Vol] 0.93 mg/dL 0.55-1.02 [facility] Work Phone: Comment on above: The validity of the calculated GFR & GFRAA in patients over 70 years has not been determined. Clinical correlation is essential. Serum or plasma low density lipoprotein (LDL) cholesterol measurement (mass/volume)on 03-21-2022 Cholesterol in LDL [Mass/Vol] 174 mg/dL 0-130 [facility] Work Phone: Serum or plasma urea nitroge n measurement (mass/volume)on 03-21-2022 Urea nitrogen [Mass/Vol] 9 mg/dL -18 [facility] Work Phone: Thin prep Papanicolaou smear with manual screeningon 03-21-2022 Thin prep Papanicolaou smear with manual screening 25 U/L 15-37 [facility] Work Phone: Thin prep Papanicolaou smear with manual screening 11 5-15 [facility] Work Phone: Vital Signs Date Time Vital Sign Value Performing Clinician Carmellai yamil 01-10-2025 13:43-0400 Body height 165.7 cm Georgia Lucero MD Work Phone: [facility] 01-10-2025 13:43-0400 Body mass index (BMI) [Ratio] 37.16 kg/m2 Georgia Lucero MD Work Phone: [facility] 01-10-2025 13:43-0400 Body weight 102.06 kg Georgia Lucero MD Work Phone: [facility] 01-10-2025 13:43-0400 Diastolic blood pressure 82 mm[Hg] Georgia Lucero MD Work Phone: [facility] 01-10-2025 13:43-0400 Systolic blood pressure 128 mm[Hg] Georgia Lucero MD Work Phone: [facility] 04-04-2024 10:42-0400 Body mass index (BMI) [Ratio] 36.84 kg/m2 Andre Haury MOLDING TECHNICIAN.[employer] Work Phone: [facility] 04-04-2024 10:42-0400 Body weight 98.88 kg Andre Haury MOLDING TECHNICIAN.[employer] Work Phone: [facility] 04-04-2024 10:42-0400 Diastolic blood pressure 84 mm[Hg] Andre Haury MOLDING TECHNICIAN.[employer] Work Phone: [facility] 04-04-2024 10:42-0400 Heart rate 82 /min Andre Haury MOLDING TECHNICIAN.[employer] Work Phone: [facility] 04-04-2024 10:42-0400 Respiratory rate 12 /min Andre Haury MOLDING TECHNICIAN.[employer] Work Phone: [facility] 04-04-2024 10:42-0400 SaO2% (BldA) [Mass fraction] 96 % Andre Haury MOLDING TECHNICIAN.[employer] Work Phone: [facility] 04-04-2024 10:42-0400 Systolic blood pressure 122 mm[Hg] Andre Haury MOLDING TECHNICIAN.[employer] Work Phone: [facility] 03-04-2024 08:15-0400 Body mass index (BMI) [Ratio] 37.69 kg/m2 Andre Haury MOLDING TECHNICIAN.[employer] Work Phone: [facility] 03-04-2024 08:15-0400 Body weight 101.15 kg Andre Haury MOLDING TECHNICIAN.[employer] Work Phone: [facility] 03-04-2024 08:15-0400 Diastolic blood pressure 84 mm[Hg] Andre Haury MOLDING TECHNICIAN.[employer] Work Phone: [facility] 03-04-2024 08:15-0400 Heart rate 88 /min Andre Haury MOLDING TECHNICIAN.[employer] Work Phone: [facility] 03-04-2024 08:15-0400 Respiratory rate 14 /min Andre Haury MOLDING TECHNICIAN.[employer] Work Phone: [facility] 03-04-2024 08:15-0400 SaO2% (BldA) [Mass fraction] 97 % Andre Junito MANN.[employer] Work Phone: [facility] 03-04-2024 08:15-0400 Systolic blood pressure 140 mm[Hg] Andrecalixto Hammerjm MANN.[employer] Work Phone: [facility] 12-29-2023 11:08-0400 Body height 163.8 cm Georgia Lucero MD Work Phone: [facility] 12-29-2023 11:08-0400 Body mass index (BMI) [Ratio] 37.01 kg/m2 Georgia Lucero MD Work Phone: [facility] 12-29-2023 11:08-0400 Body weight 99.34 kg Georgia Lucero MD Work Phone: [facility] 12-29-2023 11:08-0400 Diastolic blood pressure 66 mm[Hg] Georgia Lucero MD Work Phone: [facility] 12-29-2023 11:08-0400 Systolic blood pressure 128 mm[Hg] Georgia Lucero MD Work Phone: [facility] 04-05-2022 14:22-0400 Body height 163.8 cm Georgia Lucero MD Work Phone: [facility] 04-05-2022 14:22-0400 Body weight 97.07 kg Georgia Lucero MD Work Phone: [facility] 04-05-2022 14:22-0400 Diastolic blood pressure 90 mm[Hg] Georgia Lucero MD Work Phone: [facility] 04-05-2022 14:22-0400 Systolic blood pressure 162 mm[Hg] Georgia Lucero MD Work Phone: [facility] Encounters Encounter Date Encounter Type Care Provider Facility Start: 04-12-2025 ambulatory Vickey [place] lity:[facility] Start: 04-08-2025 ambulatory Vickey [place] lity:[facility] Start: 03-17-2025 End: 03-17-2025 ambulatory Kian L Seese Facility:[facility] Start: 01-30-2025 End: 01-30-2025 ambulatory Kian L Seese Facility:[facility] Start: 01-13-2025 End: 03-15-2025 Follow-up encounter Yasmeen Solimancalf NATALIE Work Phone: OB/Gynecology Start: 01-10-2025 End: 01-10-2025 Patient encounter procedure Georgia Lucero MD Work Phone: OB/Gynecology Comment on above: Encounter for gyneco logical examination (general) (routine) without abnormal findings (Primary Dx); Encounter for screening mammogram for breast cancer Start: 01-10-2025 End: 01-10-2025 ambulatory VICKEY DEL TORO Facility:[facility] Start: 01-10-2025 Encounter for gynecological examination (general) (routine) without abnormal [facility] Start: 01-10-2025 End: 01-10-2025 Patient encounter status Georgia Lucero MD Work Phone: [facility] Start: 01-10-2025 End: 01-10-2025 Subsequent hospital visit by physician Screen Mammo [facility] Mamm[facility] Comment on above: Encounter for gyneco logical examination (general) (routine) without abnormal findings [Z01.419] Start: 10-30-2024 End: 10-30-2024 ambulatory Kian L Seese Facility:[facility] Start: 09-03-2024 End: 09-03-2024 ambulatory Kian L Seese Facility:[facility] Start: 07-29-2024 End: 07-29-2024 ambulatory Kian L Seese Facility:[facility] Start: 06-18-2024 End: 06-18-2024 [facility] Start: 06-04-2024 End: 06-04-2024 [facility] Start: 04-30-2024 End: 04-30-2024 ambulatory Kian L Seese Facility:[facility] Start: 04-17-2024 End: 04-17-2024 Patient encounter status [address] Work Phone: Start: 04-17-2024 End: 04-17-2024 Subsequent hospital visit by physician [address] Comment on above: Hyperlipidemia, unsp ecified; Encounter for general adult medical examination without abnormal findings Start: 04-17-2024 End: 04-17-2024 [facility] Start: 04-17-2024 End: 04-17-2024 Encounter for general adult medical examination without abnormal findings [facility] Start: 04-04-2024 End: 04-04-2024 [facility] Facility:[facility] Start: 04-04-2024 End: 04-04-2024 Patient encounter procedure Andre Junito [employer]ANN[employer] Work Phone: OB/Gynecology Comment on above: Vulvar cyst (Primary Dx) Start: 03-04-2024 End: 03-04-2024 ambulatory ANDRE WILD Facility:[facility] Start: 03-04-2024 End: 03-04-2024 Patient encounter procedure Andre Wild MOLDING TECHNICIAN.[employer] Work Phone: OB/Gynecology Comment on above: Vulvar cyst (Primary Dx) Start: 01-01-2024 Documentation procedure Mammog shaye Coordinator [facility] Department Start: 01-01-2024 Letter encounter Mammography Coordinator [facility] Department Start: 12-29-2023 ambulatory Georgia paz MD Work Phone: OB/Gynecology Comment on above: Work excuse Start: 12-29-2023 Telephone encounter Georgia Lucero MD Work Phone: [facility] [place] Comment on above: Patient Question Start: 12-29-2023 End: 12-29-2023 Patient encounter status [facility] Start: 12-29-2023 End: 12-29-2023 Subsequent hospital visit by physician Screen Mammo [facility] Mammogram Start: 12-29-2023 End: 12-29-2023 Patient encounter procedure Georgia Lucero MD Work Phone: OB/Gynecology Comment on above: Encounter for gyneco logical examination (general) (routine) without abnormal findings (Primary Dx); Encounter for screening for human papillomavirus (HPV); Pap smear for cervical cancer screening; Encounter for screening mammogram for breast cancer Start: 12-29-2023 End: 12-29-2023 Patient encounter status Georgia Lucero MD Work Phone: [facility] Start: 11-14-2023 Telephone encounter Georgia Lucero MD Work Phone: OB/Gynecology Comment on above: Appointment Start: 10-24-2022 Documentation procedure Mammog shaye Coordinator [facility] Start: 10-24-2022 Letter encounter Mammography Coordinator [facility] Department Start: 04-05-2022 End: 04-05-2022 Patient encounter procedure Georgia Lucero MD Work Phone: OB/Gynecology Comment on above: Encounter for gyneco logical examination (general) (routine) without abnormal findings (Primary Dx); Encounter for screening mammogram for breast cancer; Obesity, Class II, BMI 35-39.9 Start: 04-05-2022 End: 04-05-2022 Patient encounter status Georgia Lucero MD Work Phone: OB/Gynecology Start: 03-21-2022 End: 03-21-2022 Patient encounter [facility] Start: 12-15-2021 End: 12-15-2021 Patient encounter procedure [facility]-Radiology, [facility] Start: 07-29-2009 End: 11-20-2009 Female genitalia finding Georgia Lucero MD Work Phone: [facility] Start: 07-29-2009 End: 11-20-2009 Patient encounter status Georgia Lucero MD Work Phone: [facility] Procedures Date Procedure Procedure Detail Performing Clinician Start: 12-29-2023 Mammography Tyrone 2 Start: 10-21-2022 Mammography Mammography Coordinator Start: 12-15-2021 Radiography of esophagus Start: 11-19-2021 Mammography Georgia Lucero MD Work Phone: Start: 01-02-2019 Colonoscopy Georgia Lucero MD Work Phone: Start: 09-11-2012 Lipid 1996 panel - Serum or Plasma Georgia Lucero MD Work Phone: Start: 05-06-2009 End: 11-20-2009 H/O: section Previous delivery, antepartum condition or complication Georgia Lucero MD Work Phone: H/O: section History of C-sectio n Plan of Treatment Date Care Activity Detail Author Start: 08-05-2029 DTaP/Tdap/Td Vaccine s (2 - Td or Tdap) DTaP/Tdap/Td Vaccines (2 - Td or Tdap) [facility] Start: 08-05-2029 Urine microalbumin profile DTaP,Tdap,Td Vaccine (2 - Td or Tdap) [facility] Start: 01-02-2029 Screening for malign ant neoplasm of colon [facility] Start: 12-28-2028 Screening for malign ant neoplasm of cervix Cervical Cancer Screening [facility] Start: 01-16-2026 End: 01-16-2026 Patient encounter procedure Mammogram Comment on above: Encounter for gyneco logical examination (general) (routine) without abnormal findings [Z01.419]; Encounter for screening mammogram for breast cancer [Z12.31] Annual Start: 01-10-2026 Screening for malign ant neoplasm of breast Mammogram Screening [facility] Start: 01-10-2025 End: 01-10-2025 Patient encounter procedure OB/Gynecology Comment on above: annual Encounter for screen ing mammogram for breast cancer [Z12.31] Start: 12-28-2024 Screening for malign ant neoplasm of breast [facility] Start: 09-24-2024 HPV TESTING HPV TESTING [facility] Start: 09-24-2024 PAP TESTING PAP TESTING [facility] Start: 09-24-2024 Screening for malign ant neoplasm of cervix [facility] Start: 05-05-2024 Covid-19 Vaccine () Covid-19 Vaccine () [facility] Start: 05-05-2024 Influenza vaccination Influenza Vacc ine (#1) [facility] Start: 04-04-2024 End: 04-04-2024 Patient encounter procedure 04/04/2024 10:45 AM EDT Office Visit OB/Gynecology [address] [place] [address] Andre Wild, JOHNATHAN.[employer] [address] [place] [address] Follow up OB/Gynecology Comment on above: Follow up Start: 04-01-2024 Shingrix Vaccine (2 of 2) Shingrix Vaccine (2 of 2) [facility] Start: 04-01-2024 Zoster Vaccines (2 o f 2) Zoster Vaccines (2 of 2) [facility] Start: 11-03-2023 Screening for malign ant neoplasm of colon [facility] Start: 10-21-2023 Mammography MAMMOGRAM [facility] Start: 10-21-2023 Screening for malign ant neoplasm of breast Mammogram Screening [facility] Start: 05-05-2023 Covid-19 Vaccine ( season) Covid-19 Vaccine ( season) [facility] Start: 05-05-2023 Influenza vaccination Influenza Vacc ine (#1) [facility] Start: 11-19-2022 Mammography MAMMOGRAM [facility] Start: 06-10-2022 COVID-19 VACCINE (4 - Booster for Moderna series) COVID-19 VACCINE (4 - Booster for Moderna series) [facility] Start: 05-05-2022 Influenza vaccination INFLUENZA (#1) [facility] Start: 04-05-2022 COVID-19 VACCINE (4 - Booster for Moderna series) COVID-19 VACCINE (4 - Booster for Moderna series) [facility] Start: 2020 Pneumococcal Vaccine : 50+ (1 of 1 - PCV) Pneumococcal Vaccine: 50+ (1 of 1 - PCV) [facility] Start: 2020 SHINGRIX VACCINE (1 of 2) SHINGRIX VACCINE (1 of 2) [facility] Start: 09-11-2017 Lipid panel Lipid Screening [facility] Start: 09-11-2017 LIPID SCREEN LIPID SCREEN [facility] Start: 12-25-2015 COLOGUARD (FIT-DNA) COLOGUARD (FIT-D NA) [facility] Start: 12-25-2015 Colonoscopy COLONOSCOPY [facility] Start: 12-25-2015 COLORECTAL CANCER SCREENING COLORECTAL CANCER SCREENING [facility] Start: 12-25-[address] COLONOGRAPHY [facility] Start: 12-25-2015 DIABETES SCREEN [facility]CREEN [facility] Start: 12-25-2015 Diabetes Screening Diabetes Screenin g [facility] Start: 12-25-2015 FECAL OCCULT BLOOD FECAL OCCULT BLOO D [facility] Start: 12-25-2015 Screening for malign ant neoplasm of colon [facility] Start: 12-25-2015 SIGMOIDOSCOPY SIGMOIDOSCOPY [facility] Start: 03-20-2012 Urine microalbumin profile DTAP,TDAP,TD (1 - Tdap) [facility] Start: 08-05-2009 MMR Vaccines (1 of 1 - Standard series) MMR Vaccines (1 of 1 - Standard series) [facility] Start: 12-25-1991 Screening for malign ant neoplasm of cervix [facility] Start: 1989 Hepatitis B Vaccine (1 of 3 - 19+ 3-dose series) Hepatitis B Vaccine (1 of 3 - 19+ 3-dose series) [facility] Start: 1989 Hepatitis B Vaccines (1 of 3 - 19+ 3-dose series) Hepatitis B Vaccines (1 of 3 - 19+ 3-dose series) [facility] Start: 1988 HEPATITIS C SCREENING HEPATITIS C [facility] Start: 1988 Hepatitis C screening Hepatitis C [facility] Start: 1988 HIV SCREENING HIV SCREENING [facility] Start: 1988 HIV screening HIV Screening [facility] Start: 1970 HEPATITIS B (1 of 3 - 3-dose series) HEPATITIS B (1 of 3 - 3-dose series) [facility] Start: 1970 HIV screening HIV Screening [facility] Start: 1970 Lipid panel Lipid Panel [facility] Start: 1970 Screening for malign ant neoplasm of colon [facility] Start: 1970 Yearly Adult Physical Yearly Adult P hysical [facility] End: 04-17-2024 CT for calcium scoring WO contrast and CTA W contrast IV Heart and coronary arteries [facility] Service Area Work Phone: Comment on above: Once for 1 Occurrenc es starting 04/17/2024 until 04/17/2024 End: 01-27-2025 DBT Breast - bilateral screening [facility] SCREENING [facility] Routine Encounter for gynecological examination (general) (routine) without abnormal findings Encounter for screening mammogram for breast cancer 1 Occurrences starting 12/29/2023 until 01/27/2025 [facility] Work Phone: Comment on above: 1 Occurrences starti ng 12/29/2023 until 01/27/2025 End: 02-09-2026 DBT Breast - bilateral screening [facility]OS SCREENING [facility] Routine Encounter for gynecological examination (general) (routine) without abnormal findings Encounter for screening mammogram for breast cancer 1 Occurrences starting 01/10/2025 until 02/09/2026 [facility] Work Phone: Comment on above: 1 Occurrences starti ng 01/10/2025 until 02/09/2026 DBT Breast - bilater al screening [facility] SCREENING [facility] Routine Encounter for gynecological examination (general) (routine) without abnormal findings Encounter for screening mammogram for breast cancer 01/10/2025 2:42 PM EDT [facility] Work Phone: End: 12-29-2023 MG Breast Screening [facility] Work Phone: Comment on above: ONCE for 1 Occurrenc es starting 12/29/2023 until 12/29/2023 PAP TEST PAP TEST Lab Rou rex Encounter for gynecological examination (general) (routine) without abnormal findings Encounter for screening for human papillomavirus (HPV) Pap smear for cervical cancer screening 12/29/2023 11:47 AM EDT [facility] End: 05-05-2023 Screening mammography bi 2-view breast inc cad [facility] SCREENING Radiology Routine Encounter for gynecological examination (general) (routine) without abnormal findings Encounter for screening mammogram for breast cancer 1 Occurrences starting 04/05/2022 until 05/05/2023 [facility] Work Phone: Comment on above: 1 Occurrences starti ng 04/05/2022 until 05/05/2023 [facility] Immunizations Immunization Date Immunization Notes Care Provider Fa cility 06-02-2023 influenza, injectabl e, quadrivalent, preservative free Georgia Lucero MD Work Phone: [facility] 06-02-2023 influenza virus vaccine, unspecified formulation Andre Wild [employer] Work Phone: [facility] 06-03-2022 influenza, injectabl e, quadrivalent, preservative free Georgia Lucero MD Work Phone: [facility] 06-03-2022 influenza virus vaccine, unspecified formulation Georgia Lucero MD Work Phone: [facility] 07-02-2021 influenza, injectabl e, quadrivalent, preservative free Georgia Lucero MD Work Phone: [facility] 12-02-2020 COVID-19 vaccine, fu ll dose (MODERNA) Georgia Lucero MD Work Phone: [facility] 10-30-2020 COVID-19 vaccine, fu ll dose (MODERNA) Georgia Lucero MD Work Phone: [facility] 05-30-2020 influenza, injectabl e, quadrivalent, contains preservmalorie Lucero MD Work Phone: [facility] 08-05-2019 tetanus toxoid, redu edilma diphtheria toxoid, and acellular pertussis vaccine, adsorbed Georgia Lucero MD Work Phone: [facility] 07-05-2019 influenza, injectabl e, quadrivalent, contains preservmalorie Lucero MD Work Phone: [facility] 06-02-2018 influenza, injectabl e, quadrivalent, contains preservmalorie Lucero MD Work Phone: [facility] 06-21-2017 influenza, seasonal, injectable Georgia Lucero MD Work Phone: [facility] 06-20-2016 influenza, seasonal, injectable Georgia Lucero MD Work Phone: [facility] 06-06-2015 influenza, injectabl e, quadrivalent, contains preservative Georgia Lucero MD Work Phone: [facility] Work Phone: 06-19-2014 influenza, seasonal, injectable Georgia Lucero MD Work Phone: [facility] Work Phone: 06-27-2013 influenza, seasonal, injectable Georgia Lucero MD Work Phone: [facility] 06-02-2012 influenza virus vaccine, unspecified formulation Georgia Lucero MD Work Phone: [facility] Work Phone: 03-19-2012 tetanus and diphther ia toxoids, adsorbed, preservative free, for adult use (2 Lf of tetanus toxoid and 2 Lf of diphtheria toxoid) Georgia Lucero MD Work Phone: [facility] 06-04-2011 influenza virus vaccine, unspecified formulation Georgia Lucero MD Work Phone: [facility] Work Phone: 06-24-2010 influenza virus vaccine, unspecified formulation Georgia Lucero MD Work Phone: [facility] Work Phone: 07-08-2009 novel myyrdfxry-[id number], preservative-free, injectable Georgia Lucero MD Work Phone: [facility] 06-08-2009 influenza virus vaccine, unspecified formulation Georgia Lucero MD Work Phone: [facility] Work Phone: 07-09-2008 influenza virus vaccine, unspecified formulation Georgia Lucero MD Work Phone: [facility] Work Phone: 09-11-2007 tuberculin skin test ; purified protein derivative solution, intradermal Georgia Lucero MD Work Phone: [facility] Payers Date Payer Category Payer Self-pay [id number] [phone] [id number] 2021 Private Health Insurance MMO SUP [employer] PPO [id number] 2021 Unknown MMO MMO [employer] PLUS [id number] 2021-Present [phone] [address] [place] [address] PPO [id number] 2021 Unknown [id number] 2021 Unknown [id number] 1970 Unknown [id number] Private Health Insurance SELF PAY INSURAN CE [id number] Unknown SELF PAY INSURANCE [id number] Unknown [id number] Unknown [id number] Unknown [id number] Unknown [id number] Unknown [id number] Unknown [id number] Unknown [id number] Unknown [id number] Unknown [id number] Unknown [id number] Social History Date Type Detail Facility Start: 11-27-2020 [facility] Work Phone: Start: 11-27-2020 Non-smoker [facility] Work Phone: Start: 1970 Sex Assigned At Female [facility] Work Phone: Start: 01-27-2012 [facility] tobacco [facility] Start: 04-05-2022 End: 12-29-2023 Alcohol intake Current non-drinker of alcohol (finding) [facility] Start: 1970 Sex Assigned At Not on file [facility] Start: 03-26-2022 End: 04-17-2024 Exposure to SARS-CoV-2 (event) Not sure [facility] Start: 01-27-2012 Tobacco use and exposure Smokeless tobacco non-user [facility] Work Phone: Start: 08-09-2020 End: 04-05-2022 History of Social function [facility] Start: 08-09-2020 End: 04-05-2022 Tobacco use panel [facility] National Score (1-100), lower number is lower risk Not on file [facility] Start: 03-04-2024 End: 01-10-2025 Alcohol intake Ex-drinker (finding) [facility] Functional Status Date Assessment Result Facility 04-04-2014 Are you deaf, or do you have serious difficulty hearing No 04/04/2014 1:12 PM Sonya Bruce Ma No [facility] 04-04-2014 Are you blind, or do you have serious difficulty seeing, even when wearing glasses No 04/04/2014 1:12 PM Sonya Bruce Ma No [facility] 04-04-2014 Do you have serious difficulty walking or climbing stairs No 04/04/2014 1:12 PM EDT Mena DacostaSonya [facility] 04-04-2014 Do you have difficul ty dressing or bathing No 04/04/2014 1:12 PM EDT Mena DacostaSonya [facility] 04-04-2014 Because of a physica l, mental, or emotional condition, do you have difficulty doing errands alone such as visiting a physician's office or shopping No 04/04/2014 1:12 PM EDT Mena DacostaSonya [facility] Mental Status Date Assessment Result Facility 04-04-2014 Because of a physica l, mental, or emotional condition, do you have serious difficulty concentrating, remembering, or making decisions No 04/04/2014 1:12 PM EDT Mena DacostaSonya [facility] Clinical Notes 07-29-2009 to 01-10-2025 Nora Stephens RT(R) - 01/10/2025 2:10 PM Georgia Wei MD - 01/10/2025 1:38 PM Andre Browning APRN.CNP - 04/04/2024 10:40 AM EDTPatient Instructions Note Date & Type Note Facility 01-10-2025 History of Presen t illness Narrative Radiology Service Progress Note PATIENT NAME: Karma Kapoor DATE OF SERVICE: January 10, 2025 TIME: 2:44 PM PATIENT IDENTITY VERIFICATION COMPLETED USING TWO (2) IDENTIFIERS: Name and Date of confirmed by patient verbally. FALL SCREENING: Has the patient had 2 falls in the last year or 1 fall with injury or currently using an Ambulatory Assistive Device (Walker, Cane, Wheelchair, Crutches, etc.)? No PATIENT GENDER DATA: Assigned female at . status: : No status: NO. PATIENT RELEVANT IMPLANT DATA REVIEWED: Yes PATIENT PRESENTS WITH AN IMPLANTABLE OR ATTACHED PROFESSOR OF SPECIAL EDUCATION: No RADIOLOGY DEPARTMENT: Mammography PERIPHERAL IV DATA: Not applicable SIGNED BY: RT Katie(R) January 10, 2025 2:44 PM documented in this encounter [facility] 01-10-2025 Note HNO ID: [id number] Author: NORA STEPHENS RT(R) Service: Radiology Author Type: Fence Manufacture Supervisor Type: Progress Notes Filed: 01/10/2025 14:45 Note Text: Radiology Service Progress Note PATIENT NAME: Karma Kapoor DATE OF SERVICE: January 10, 2025 TIME: 2:44 PM PATIENT IDENTITY VERIFICATION COMPLETED USING TWO (2) IDENTIFIERS: Name and Date of confirmed by patient verbally. FALL SCREENING: Has the patient had 2 falls in the last year or 1 fall with injury or currently using an Ambulatory Assistive Device (Walker, Cane, Wheelchair, Crutches, etc.)? No PATIENT GENDER DATA: Assigned female at . status: : No status: NO. PATIENT RELEVANT IMPLANT DATA REVIEWED: Yes PATIENT PRESENTS WITH AN IMPLANTABLE OR ATTACHED PROFESSOR OF SPECIAL EDUCATION: No RADIOLOGY DEPARTMENT: Mammography PERIPHERAL IV DATA: Not applicable SIGNED BY: RT Katie(R) January 10, 2025 2:44 PM [facility] 01-10-2025 Note HNO ID: [id number] Author: GEORGIA LUCERO MD Service: ? Author Type: Physician Type: Progress Notes Filed: 01/10/2025 14:11 Note Text: Karma is a 54 year old who presents for an annual gynecologic exam without complaints. Postmenopausal: yes HRT use: No. Still get period: Yes Bleeding amount bothersome: Yes sometimes, uses txa occas. Skips some menses but has had most months. Few hot flashes. Bleeding between periods: Yes Period symptoms: Breast tenderness Menopause symptoms: Hot flashes; Night sweats Time with current partner: 31 years Number of lifetime partners: 1 control frequency: Never HPV vaccine: No; Last pap smear: 12/29/2023 History of abnormal pap: No, all prior PAP smears have been normal Bothersome pelvic pain: No Last mammogram: 2024 History of abnormal mammogram: No OB History Gravida3 Para3 Term3 Preterm0 AB0 Living3 SAB0 IAB0 Ectopic0 Multiple0 Live Births3 [employer] History LMP: 11/02/2024, Having periods Age at Menarche: 12 Age at First : Age at Menopause: [employer] History Comments: Sexual Activity: Yes; Male Contraception: Tubal Ligation Menstrual Tracking History Flowsheet RowOffice Visit from 01/10/2025 in OB/GynecologyPeriod Cycle (Days) 30 Period Duration (Days) 10 Menstrual Flow Heavy PAST MEDICAL HISTORY Diagnosis Date Essential hypertension Generalized anxiety disorder Dr. Jessica alex meds Other and unspecified hyperlipidemia Hyperlipidemia PAST SURGICAL HISTORY Procedure Laterality Date DELIVERY ONLY x 3/ with the first one she needed two units of blood because she was bleeding out vaginally. LIG/TRNSXJ FLP TUBE ABDL/VAG APPR UNI/BI Tubal ligation PAST SURGICAL HISTORY OF pins/fx right arm PAST SURGICAL HISTORY OF WISDOM TEETH FAMILY HISTORY Problem Relation Lipids Mother Stroke Mother 88 Heart Father age 50's of massive PA; known CAD prior? Hypertension Father Lipids Sister Lipids Brother other (Clean cell cancer) Brother Kidney Cancer Brother stage 4 Heart Maternal Grandfather of a massive PA Heart Paternal Grandfather CHF, age 90's SOCIAL HISTORY Social History Tobacco Use Smoking status: Never Smokeless tobacco: Never Vaping Use Vaping status: Never Used Substance Use Topics Alcohol use: Not Currently Drug use: Never REVIEW OF SYSTEMS Abdomen: No abdominal pain, nausea, vomiting, diarrhea, or constipation. No bloating, early satiety, indigestion, or increased flatulence. Bladder: No dysuria, gross hematuria, urinary frequency, urinary urgency, or incontinence Breast: No breast lumps, nipple d/c, overlying skin changes, redness or skin retraction Allergies and current medication updated:Yes SENSITIVE EXAM: The sensitive examination was discussed with the Patient or Patient's Authorized Ingot Passer. As applicable, any other physician, advance practice provider, medical student, or other health professional student that will be observing or involved in the sensitive examination for educational or training purposes was discussed with the Patient or Authorized Ingot Passer. The Patient or Authorized Ingot Passer has agreed to proceed with the sensitive examination. (Sensitive examination includes inspection and/or palpation of the breasts, pelvis, prostate and anorectal regions). EXAM: BP 128/82 Ht 5' 5.25 (1.66m) Wt 225 lb (102.1kg) LMP 11/02/2024 BMI 37.17 kg/(m2). GENERAL: pleasant, female in no apparent distress HEENT: Normocephalic, atraumatic, mucus membranes moist, and no lesions NECK: Supple, full range of motion, no adenopathy, and thyroid normal DERMATOLOGY: Normal, without lesions, non-icteric, and non-hirsute BREAST: soft, non-tender, symmetric, no dominant mass, normal nipple-areolar complex, no lymphadenopathy, and no nipple discharge CHEST: Normal inspiratory effort ABDOMEN: soft, non-tender, and no masses PELVIC: external genitalia normal, normal Bartholin's glands, urethra, [place]'s glands, no vulvar lesions, no cervical lesions, good vaginal support, physiologic discharge present, normal appearing perineal body and perianal region BIMANUAL: uterus normal size, shape and consistency, no adnexal masses, and non-tender RECTOVAGINAL: deferred. NEURO: alert and oriented x3,exam grossly non-focal EXTREMITIES: normal ASSESSMENT/PLAN: 1) Health maintenance: Pap done with HPV. Mammogram ordered Colon cancer screening: up to date with screening cont txa prn 2) Follow up one year or sooner as needed Georgia Lucero MD [facility] 01-10-2025 History of Presen t illness Narrative Karma is a 54 year old who presents for an annual gynecologic exam without complaints. Postmenopausal: yes HRT use: No. Still get period: Yes Bleeding amount bothersome: Yes sometimes, uses txa occas. Skips some menses but has had most months. Few hot flashes. Bleeding between periods: Yes Period symptoms: Breast tenderness Menopause symptoms: Hot flashes; Night sweats Time with current partner: 31 years Number of lifetime partners: 1 control frequency: Never HPV vaccine: No; Last pap smear: 12/29/2023 History of abnormal pap: No, all prior PAP smears have been normal Bothersome pelvic pain: No Last mammogram: 2024 History of abnormal mammogram: No OB History Gravida3 Para3 Term3 Preterm0 AB0 Living3 SAB0 IAB0 Ectopic0 Multiple0 Live Births3 Police Liaison History LMP: 11/02/2024, Having periods Age at Menarche: 12 Age at First : Age at Menopause: Police Liaison History Comments: Sexual Activity: Yes; Male Contraception: Tubal Ligation Menstrual Tracking History Flowsheet RowOffice Visit from 01/10/2025 in OB/GynecologyPeriod Cycle (Days) 30 Period Duration (Days) 10 Menstrual Flow Heavy PAST MEDICAL HISTORY Diagnosis Date Essential hypertension Generalized anxiety disorder Dr. Jessica hawley Other and unspecified hyperlipidemia Hyperlipidemia PAST SURGICAL HISTORY Procedure Laterality Date DELIVERY ONLY x 3/ with the first one she needed two units of blood because she was bleeding out vaginally. LIG/TRNSXJ FLP TUBE ABDL/VAG APPR UNI/BI Tubal ligation PAST SURGICAL HISTORY OF pins/fx right arm PAST SURGICAL HISTORY OF WISDOM TEETH FAMILY HISTORY Problem Relation Lipids Mother Stroke Mother 88 Heart Father age 50's of massive PA; known CAD prior? Hypertension Father Lipids Sister Lipids Brother other (Clean cell cancer) Brother Kidney Cancer Brother stage 4 Heart Maternal Grandfather of a massive PA Heart Paternal Grandfather CHF, age 90's SOCIAL HISTORY Social History Tobacco Use Smoking status: Never Smokeless tobacco: Never Vaping Use Vaping status: Never Used Substance Use Topics Alcohol use: Not Currently Drug use: Never REVIEW OF SYSTEMS Abdomen: No abdominal pain, nausea, vomiting, diarrhea, or constipation. No bloating, early satiety, indigestion, or increased flatulence. Bladder: No dysuria, gross hematuria, urinary frequency, urinary urgency, or incontinence Breast: No breast lumps, nipple d/c, overlying skin changes, redness or skin retraction Allergies and current medication updated:Yes SENSITIVE EXAM: The sensitive examination was discussed with the Patient or Patient's Authorized Ingot Passer. As applicable, any other physician, advance practice provider, medical student, or other health professional student that will be observing or involved in the sensitive examination for educational or training purposes was discussed with the Patient or Authorized Ingot Passer. The Patient or Authorized Ingot Passer has agreed to proceed with the sensitive examination. (Sensitive examination includes inspection and/or palpation of the breasts, pelvis, prostate and anorectal regions). EXAM: BP 128/82 Ht 5' 5.25 (1.66m) Wt 225 lb (102.1kg) LMP 11/02/2024 BMI 37.17 kg/(m^2). GENERAL: pleasant, female in no apparent distress HEENT: Normocephalic, atraumatic, mucus membranes moist, and no lesions NECK: Supple, full range of motion, no adenopathy, and thyroid normal DERMATOLOGY: Normal, without lesions, non-icteric, and non-hirsute BREAST: soft, non-tender, symmetric, no dominant mass, normal nipple-areolar complex, no lymphadenopathy, and no nipple discharge CHEST: Normal inspiratory effort ABDOMEN: soft, non-tender, and no masses PELVIC: external genitalia normal, normal Bartholin's glands, urethra, [place]'s glands, no vulvar lesions, no cervical lesions, good vaginal support, physiologic discharge present, normal appearing perineal body and perianal region BIMANUAL: uterus normal size, shape and consistency, no adnexal masses, and non-tender RECTOVAGINAL: deferred. NEURO: alert and oriented x3,exam grossly non-focal EXTREMITIES: normal ASSESSMENT/PLAN: 1) Health maintenance: Pap done with HPV. Mammogram ordered Colon cancer screening: up to date with screening cont txa prn 2) Follow up one year or sooner as needed Georgia Lucero MD documented in this encounter [facility] 04-04-2024 Note HNO ID: [id number] Author: ANDRE WILD APRN.[employer] Service: ? Author Type: Nurse Practitioner Type: Progress Notes Filed: 04/04/2024 11:02 Note Text: Electric Clock Mechanic offered: Patient declines. Karma Kapoor is a 53 year old female who presents for a follow up of a vulvar cyst. HPI: Karma was seen on 03/04/24 for a hard pea sized lump. It was resolving at time of visit on 03/04. A 0.5 cm pink smooth symmetrical lesion to the left labia majora, slightly raised, without scabbing, drainage, swelling or erythema. She reports that she thought she felt something about a 1 week, but has resolved and no further concerns. OB History T3 L3 SAB0 IAB0 Ectopic0 Multiple0 Live Births3 Police Liaison History LMP: 02/05/2024 (Approximate), Having periods Age at Menarche: Age at First : Age at Menopause: Police Liaison History Comments: Sexual Activity: Yes; Male Contraception: Tubal Ligation PAST MEDICAL HISTORY No date: Generalized anxiety disorder Comment: Dr. Jessica alex meds No date: Other and unspecified hyperlipidemia Comment: Hyperlipidemia PAST SURGICAL HISTORY No date: DELIVERY ONLY Comment: x 3/ with the first one she needed two units of blood because she was bleeding out vaginally. No date: LIG/TRNSXJ FLP TUBE ABDL/VAG APPR UNI/BI Comment: Tubal ligation No date: PAST SURGICAL HISTORY OF Comment: pins/fx right arm No date: PAST SURGICAL HISTORY OF Comment: WISDOM TEETH FAMILY HISTORY Problem Relation Age of Onset Lipids Mother Stroke Mother 88 Heart Father age 50's of massive PA; known CAD prior? Hypertension Father Lipids Sister Lipids Brother other (Clean cell cancer) Brother Heart Maternal Grandfather of a massive PA Heart Paternal Grandfather CHF, age 90's Social History Tobacco Use Smoking status: Never Smokeless tobacco: Never Vaping Use Vaping Use: Never used Substance Use Topics Alcohol use: Not Currently Drug use: Never Current Outpatient Medications Medication Sig lisinopril (ZESTRIL) 40 mg tablet Take 1 tablet by mouth every afternoon. meloxicam (MOBIC) 15 mg tablet Take 1 tablet by mouth every afternoon. pantoprazole DR (PROTONIX) 40 mg tablet TAKE 1 TABLET BY MOUTH ONCE DAILY BEFORE MORNING MEAL traZODone (DESYREL) 100 mg tablet Take 100 mg by mouth daily at bedtime. hydroCHLOROthiazide 12.5 mg capsule Take 1 capsule by mouth every afternoon. ARIPiprazole (ABILIFY) 15 mg tablet Take 15 mg by mouth once daily. escitalopram oxalate (LEXAPRO) 20 mg tablet Take 20 mg by mouth once daily. tranexamic acid (LYSTEDA) 650 mg tablet Take 2 tablets by mouth three times daily as needed (heavy menstrual bleeding) for up to 5 days. Cholecalciferol, Vitamin D3, 3,000 unit tab Take by mouth once daily. calcium carbonate 600 mg-cholecalciferol 200 units (CALCIUM 600 + D,3,) 600 mg(1,500mg) -200 unit Tab Take 1 tablet by mouth twice daily. multivits w-ca,fe,other min(ONE-A-DAY WOMENS FORMULA 27 MG-0.4 MG TAB) Take by mouth once daily. No current facility-administered medications for this visit. 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 bleeding, abnormal vaginal discharge Allergies and current medication updated:Yes EXAM: BP 122/84 Pulse 82 Resp 12 Wt 218 lb (98.9kg) SpO2 96% LMP 02/05/2024 GENERAL: pleasant, female in no apparent distress HEENT: Normocephalic, atraumatic, mucus membranes moist, and no lesions CHEST: Normal inspiratory effort PELVIC: external genitalia normal, normal Bartholin's glands, urethra, [place]'s glands, no vulvar lesions, no cervical lesions, good vaginal support, physiologic discharge present, normal appearing perineal body and perianal region NEURO: alert and oriented x3,exam grossly non-focal EXTREMITIES: normal ASSESSMENT AND PLAN: 1. Vulvar cyst - ICD9: 624.8, ICD10: N90.7 - Totally resolved, not seen on exam - Patient denies any further concerns - To follow up if resurfaces any other issues RTO for annual in December or sooner as needed. 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 Karma Kapoor is a 53 year old female who presents for a follow up of a vulvar cyst. HPI: Karma was seen on 03/04/24 for a hard pea sized lump. It was resolving at time of visit on 03/04. A 0.5 cm pink smooth symmetrical lesion to the left labia majora, slightly raised, without scabbing, drainage, swelling or erythema. She reports that she thought she felt something about a 1 week, but has resolved and no further concerns. OB History T3 L3 SAB0 IAB0 Ectopic0 Multiple0 Live Births3 Police Liaison History LMP: 02/05/2024 (Approximate), Having periods Age at Menarche: Age at First : Age at Menopause: Police Liaison History Comments: Sexual Activity: Yes; Male Contraception: Tubal Ligation PAST MEDICAL HISTORY No date: Generalized anxiety disorder Comment: Dr. Jessica hawley No date: Other and unspecified hyperlipidemia Comment: Hyperlipidemia PAST SURGICAL HISTORY No date: DELIVERY ONLY Comment: x 3/ with the first one she needed two units of blood because she was bleeding out vaginally. No date: LIG/TRNSXJ FLP TUBE ABDL/VAG APPR UNI/BI Comment: Tubal ligation No date: PAST SURGICAL HISTORY OF Comment: pins/fx right arm No date: PAST SURGICAL HISTORY OF Comment: WISDOM TEETH FAMILY HISTORY Problem Relation Age of Onset Lipids Mother Stroke Mother 88 Heart Father age 50's of massive PA; known CAD prior? Hypertension Father Lipids Sister Lipids Brother other (Clean cell cancer) Brother Heart Maternal Grandfather of a massive PA Heart Paternal Grandfather CHF, age 90's Social History Tobacco Use Smoking status: Never Smokeless tobacco: Never Vaping Use Vaping Use: Never used Substance Use Topics Alcohol use: Not Currently Drug use: Never Current Outpatient Medications Medication Sig lisinopril (ZESTRIL) 40 mg tablet Take 1 tablet by mouth every afternoon. meloxicam (MOBIC) 15 mg tablet Take 1 tablet by mouth every afternoon. pantoprazole DR (PROTONIX) 40 mg tablet TAKE 1 TABLET BY MOUTH ONCE DAILY BEFORE MORNING MEAL traZODone (DESYREL) 100 mg tablet Take 100 mg by mouth daily at bedtime. hydroCHLOROthiazide 12.5 mg capsule Take 1 capsule by mouth every afternoon. ARIPiprazole (ABILIFY) 15 mg tablet Take 15 mg by mouth once daily. escitalopram oxalate (LEXAPRO) 20 mg tablet Take 20 mg by mouth once daily. tranexamic acid (LYSTEDA) 650 mg tablet Take 2 tablets by mouth three times daily as needed (heavy menstrual bleeding) for up to 5 days. Cholecalciferol, Vitamin D3, 3,000 unit tab Take by mouth once daily. calcium carbonate 600 mg-cholecalciferol 200 units (CALCIUM 600 + D,3,) 600 mg(1,500mg) -200 unit Tab Take 1 tablet by mouth twice daily. multivits w-ca,fe,other min(ONE-A-DAY WOMENS FORMULA 27 MG-0.4 MG TAB) Take by mouth once daily. No current facility-administered medications for this visit. 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 bleeding, abnormal vaginal discharge Allergies and current medication updated:Yes EXAM: BP 122/84 Pulse 82 Resp 12 Wt 218 lb (98.9kg) SpO2 96% LMP 02/05/2024 GENERAL: pleasant, female in no apparent distress HEENT: Normocephalic, atraumatic, mucus membranes moist, and no lesions CHEST: Normal inspiratory effort PELVIC: external genitalia normal, normal Bartholin's glands, urethra, [place]'s glands, no vulvar lesions, no cervical lesions, good vaginal support, physiologic discharge present, normal appearing perineal body and perianal region NEURO: alert and oriented x3,exam grossly non-focal EXTREMITIES: normal ASSESSMENT AND PLAN: 1. Vulvar cyst - ICD9: 624.8, ICD10: N90.7 - Totally resolved, not seen on exam - Patient denies any further concerns - To follow up if resurfaces any other issues RTO for annual in December or sooner as needed. Andre Wild APRN.CNP Medical Decision Making: Problems: Minimal: Self-limited or minor problem Medical Decision Making Level: 2 - Straightforward documented in this encounter [facility] 03-04-2024 Instructions Andre Wild APRN.CNP - 03/04/2024 8:38 AM EDT Keep area clean and dry. Please follow up in 4 weeks or sooner if symptoms resurface. documented in this encounter [facility] 03-04-2024 Note HNO ID: [id number] Author: ANDRE WILD APRN.CNP Service: ? Author Type: Nurse Practitioner Type: Progress Notes Filed: 03/04/2024 08:38 Note Text: Electric Clock Mechanic offered: Patient declines. Karma Kapoor is a 53 year old female who presents for problem visit of a vulvar cyst. HPI: Karma noticed a hard pea sized lump on vacation about a week ago. She states that it is now a tear drop shape and has softened. She woke up really hot and sweating one night on vacation. She thought she had this in December with her annual, but forgot to mention it. She thinks it's smaller and almost gone at this point. It was never extremely tender, red, or swollen. Brother recently diagnosed with cancer. OB History T3 L3 SAB0 IAB0 Ectopic0 Multiple0 Live Births3 Police Liaison History LMP: 12/22/2023 (Exact Date), Having periods Age at Menarche: Age at First : Age at Menopause: Police Liaison History Comments: Sexual Activity: Yes; Male Contraception: Tubal Ligation PAST MEDICAL HISTORY Diagnosis Date Generalized anxiety disorder Dr. Jessica hawley Other and unspecified hyperlipidemia Hyperlipidemia PAST SURGICAL HISTORY Procedure Laterality Date DELIVERY ONLY x 3/ with the first one she needed two units of blood because she was bleeding out vaginally. LIG/TRNSXJ FLP TUBE ABDL/VAG APPR UNI/BI Tubal ligation PAST SURGICAL HISTORY OF pins/fx right arm PAST SURGICAL HISTORY OF WISDOM TEETH FAMILY HISTORY Problem Relation Age of Onset Lipids Mother Stroke Mother 88 Heart Father age 50's of massive PA; known CAD prior? Hypertension Father Lipids Sister Lipids Brother Heart Maternal Grandfather of a massive PA Heart Paternal Grandfather CHF, age 90's Social History Tobacco Use Smoking status: Never Smokeless tobacco: Never Vaping Use Vaping Use: Never used Substance Use Topics Alcohol use: No Drug use: No Current Outpatient Medications Medication Sig lisinopril (ZESTRIL) 40 mg tablet Take 1 tablet by mouth every afternoon. meloxicam (MOBIC) 15 mg tablet Take 1 tablet by mouth every afternoon. pantoprazole DR (PROTONIX) 40 mg tablet TAKE 1 TABLET BY MOUTH ONCE DAILY BEFORE MORNING MEAL traZODone (DESYREL) 100 mg tablet hydroCHLOROthiazide 12.5 mg capsule Take 1 capsule by mouth every afternoon. ARIPiprazole (ABILIFY) 15 mg tablet escitalopram oxalate (LEXAPRO) 20 mg tablet tranexamic acid (LYSTEDA) 650 mg tablet Take 2 tablets by mouth three times daily as needed (heavy menstrual bleeding) for up to 5 days. QUEtiapine (SEROQUEL) 100 mg tablet 150 mg. (Patient not taking: Reported on 12/29/2023) Cholecalciferol, Vitamin D3, 3,000 unit tab Take by mouth. calcium carbonate 600 mg-cholecalciferol 200 units (CALCIUM 600 + D,3,) 600 mg(1,500mg) -200 unit Tab Take 1 tablet by mouth twice daily. multivits w-ca,fe,other min(ONE-A-DAY WOMENS FORMULA 27 MG-0.4 MG TAB) No current facility-administered medications for this visit. 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: + vulvar cyst Allergies and current medication updated:Yes EXAM: BP 140/84 Pulse 88 Resp 14 Wt 223 lb (101.2kg) SpO2 97% LMP 02/05/2024 GENERAL: pleasant, female in no apparent distress HEENT: Normocephalic, atraumatic, mucus membranes moist, and no lesions CHEST: Normal inspiratory effort PELVIC: external genitalia normal, normal Bartholin's glands, urethra, [place]'s glands, + 0.5 cm pink smooth, symmetrical lesion to left labia majora, slightly raised, no scabbing, drainage, swelling or erythema, non tender, normal appearing perineal body and perianal region NEURO: alert and oriented x3,exam grossly non-focal EXTREMITIES: normal ASSESSMENT AND PLAN: 1. Vulvar cyst - ICD9: 624.8, ICD10: N90.7 - Appears to be resolving cyst - Keep area clean and dry - RTO in 4 weeks to ensure resolution - RTO sooner if painful, increasing in size, draining, or other concerns. 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 Karma Kapoor is a 53 year old female who presents for problem visit of a vulvar cyst. HPI: Karma noticed a hard pea sized lump on vacation about a week ago. She states that it is now a tear drop shape and has softened. She woke up really hot and sweating one night on vacation. She thought she had this in December with her annual, but forgot to mention it. She thinks it's smaller and almost gone at this point. It was never extremely tender, red, or swollen. Brother recently diagnosed with cancer. OB History T3 L3 SAB0 IAB0 Ectopic0 Multiple0 Live Births3 Police Liaison History LMP: 12/22/2023 (Exact Date), Having periods Age at Menarche: Age at First : Age at Menopause: Police Liaison History Comments: Sexual Activity: Yes; Male Contraception: Tubal Ligation PAST MEDICAL HISTORY Diagnosis Date Generalized anxiety disorder Dr. Jessica alex meds Other and unspecified hyperlipidemia Hyperlipidemia PAST SURGICAL HISTORY Procedure Laterality Date DELIVERY ONLY x 3/ with the first one she needed two units of blood because she was bleeding out vaginally. LIG/TRNSXJ FLP TUBE ABDL/VAG APPR UNI/BI Tubal ligation PAST SURGICAL HISTORY OF pins/fx right arm PAST SURGICAL HISTORY OF WISDOM TEETH FAMILY HISTORY Problem Relation Age of Onset Lipids Mother Stroke Mother 88 Heart Father age 50's of massive PA; known CAD prior? Hypertension Father Lipids Sister Lipids Brother Heart Maternal Grandfather of a massive PA Heart Paternal Grandfather CHF, age 90's Social History Tobacco Use Smoking status: Never Smokeless tobacco: Never Vaping Use Vaping Use: Never used Substance Use Topics Alcohol use: No Drug use: No Current Outpatient Medications Medication Sig lisinopril (ZESTRIL) 40 mg tablet Take 1 tablet by mouth every afternoon. meloxicam (MOBIC) 15 mg tablet Take 1 tablet by mouth every afternoon. pantoprazole DR (PROTONIX) 40 mg tablet TAKE 1 TABLET BY MOUTH ONCE DAILY BEFORE MORNING MEAL traZODone (DESYREL) 100 mg tablet hydroCHLOROthiazide 12.5 mg capsule Take 1 capsule by mouth every afternoon. ARIPiprazole (ABILIFY) 15 mg tablet escitalopram oxalate (LEXAPRO) 20 mg tablet tranexamic acid (LYSTEDA) 650 mg tablet Take 2 tablets by mouth three times daily as needed (heavy menstrual bleeding) for up to 5 days. QUEtiapine (SEROQUEL) 100 mg tablet 150 mg. (Patient not taking: Reported on 12/29/2023) Cholecalciferol, Vitamin D3, 3,000 unit tab Take by mouth. calcium carbonate 600 mg-cholecalciferol 200 units (CALCIUM 600 + D,3,) 600 mg(1,500mg) -200 unit Tab Take 1 tablet by mouth twice daily. multivits w-ca,fe,other min(ONE-A-DAY WOMENS FORMULA 27 MG-0.4 MG TAB) No current facility-administered medications for this visit. 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: + vulvar cyst Allergies and current medication updated:Yes EXAM: BP 140/84 Pulse 88 Resp 14 Wt 223 lb (101.2kg) SpO2 97% LMP 02/05/2024 GENERAL: pleasant, female in no apparent distress HEENT: Normocephalic, atraumatic, mucus membranes moist, and no lesions CHEST: Normal inspiratory effort PELVIC: external genitalia normal, normal Bartholin's glands, urethra, [place]'s glands, + 0.5 cm pink smooth, symmetrical lesion to left labia majora, slightly raised, no scabbing, drainage, swelling or erythema, non tender, normal appearing perineal body and perianal region NEURO: alert and oriented x3,exam grossly non-focal EXTREMITIES: normal ASSESSMENT AND PLAN: 1. Vulvar cyst - ICD9: 624.8, ICD10: N90.7 - Appears to be resolving cyst - Keep area clean and dry - RTO in 4 weeks to ensure resolution - RTO sooner if painful, increasing in size, draining, or other concerns. Andre Wild APRN.CNP Medical Decision Making: Problems: Minimal: Self-limited or minor problem Risk: Minimal: Minimal risk from testing/treatment Medical Decision Making Level: 2 - Straightforward documented in this encounter [facility] 01-01-2024 Note Formatting of this n ote might be different from the original. January 01, 2024 PID: [id number] Karma Kapoor [address] [place] [address] Dear Ms. Kapoor, We are pleased to inform you that the results of your recent breast imaging exam on 12/29/2023 are normal. Early detection of cancer is very important. We also understand recommendations regarding breast cancer screening are controversial. Please discuss with your primary care provider which strategy is best for you and whether a mammogram is right for you. Your imaging studies and report will be kept on file at [facility] as part of your permanent medical record and are available for your continuing care. Thank you for allowing us to help in meeting your health care needs. Sincerely, Dr. Kwok Interpreting Radiologist [facility] (Normal over 40) [facility] 01-01-2024 Miscellaneous Notes January 01, 2024 PID: [id number] Karma Castaneda [address] [place] [address] Dear Ms. Kapoor, We are pleased to inform you that the results of your recent breast imaging exam on 12/29/2023 are normal. Early detection of cancer is very important. We also understand recommendations regarding breast cancer screening are controversial. Please discuss with your primary care provider which strategy is best for you and whether a mammogram is right for you. Your imaging studies and report will be kept on file at [facility] as part of your permanent medical record and are available for your continuing care. Thank you for allowing us to help in meeting your health care needs. Sincerely, Dr. Kwok Interpreting Radiologist [facility] (Normal over 40) documented in this encounter [facility] 12-29-2023 Telephone encounter Note See Wintegra message dated 12/29/2023. Erika Diaz RN [facility] 12-29-2023 Miscellaneous Notes See Wintegra message dated 12/29/2023. Erika Diaz RN Left message to call office. Does patient just need a letter stating she was seen in the office today for appointment or a letter excusing her from work? Erika Diaz RN Pt called in asking if Dr. Lucero can send her a work excuse letter for todays visit on her marshallindexhart. Thank you documented in this encounter [facility] 12-29-2023 Telephone encounter Note Left message to call office. Does patient just need a letter stating she was seen in the office today for appointment or a letter excusing her from work? Erika Diaz RN [facility] 12-29-2023 Telephone encounter Note Pt called in asking if Dr. Lucero can send her a work excuse letter for todays visit on her mychart. Thank you [facility] 12-29-2023 History of Presen t illness Narrative Karma is a 53 year old who presents for an annual gynecologic exam without complaints. Irreg menses for 2 years. Not heavier or longer, some spotting after a couple of days of flow generally. Postmenopausal: no HRT use: No. Last Pap: 09/26/2019 normal HPV: 09/26/2019 negative History of abnormal pap: No Last mammogram: 2022 normal History of abnormal mammogram: No OB History T3 L3 SAB0 IAB0 Ectopic0 Multiple0 Live Births3 Police Liaison History LMP: 12/22/2023 (Exact Date), Having periods Age at Menarche: Age at First : Age at Menopause: Police Liaison History Comments: Sexual Activity: Yes; Male Contraception: Tubal Ligation PAST MEDICAL HISTORY Diagnosis Date Generalized anxiety disorder Dr. Jessica hawley Other and unspecified hyperlipidemia Hyperlipidemia PAST SURGICAL HISTORY Procedure Laterality Date DELIVERY ONLY x 3/ with the first one she needed two units of blood because she was bleeding out vaginally. LIG/TRNSXJ FLP TUBE ABDL/VAG APPR UNI/BI Tubal ligation PAST SURGICAL HISTORY OF pins/fx right arm PAST SURGICAL HISTORY OF WISDOM TEETH FAMILY HISTORY Problem Relation Age of Onset Lipids Mother Stroke Mother 88 Heart Father age 50's of massive PA; known CAD prior? Hypertension Father Lipids Sister Lipids Brother Heart Maternal Grandfather of a massive PA Heart Paternal Grandfather CHF, age 90's SOCIAL HISTORY Social History Tobacco Use Smoking status: Never Smokeless tobacco: Never Vaping Use Vaping Use: Never used Substance Use Topics Alcohol use: No Drug use: No REVIEW OF SYSTEMS Abdomen: No abdominal pain, nausea, vomiting, diarrhea, or constipation. No bloating, early satiety, indigestion, or increased flatulence. Bladder: No dysuria, gross hematuria, urinary frequency, urinary urgency, or incontinence Breast: No breast lumps, nipple d/c, overlying skin changes, redness or skin retraction Allergies and current medication updated:Yes EXAM: BP 128/66 Ht 5' 4.5 (1.64m) Wt 219 lb (99.3kg) LMP 12/22/2023 BMI 37.02 kg/(m^2). GENERAL: pleasant, female in no apparent distress HEENT: Normocephalic, atraumatic, mucus membranes moist, and no lesions NECK: Supple, full range of motion, no adenopathy, and thyroid normal DERMATOLOGY: Normal, without lesions, non-icteric, and non-hirsute BREAST: soft, non-tender, symmetric, no dominant mass, normal nipple-areolar complex, no lymphadenopathy, and no nipple discharge CHEST: Normal inspiratory effort ABDOMEN: soft, non-tender, and no masses PELVIC: external genitalia normal, normal Bartholin's glands, urethra, Bruc[place]own's glands, no vulvar lesions, no cervical lesions, good vaginal support, physiologic discharge present, normal appearing perineal body and perianal region BIMANUAL: uterus normal size, shape and consistency, no adnexal masses, and non-tender RECTOVAGINAL: deferred. NEURO: alert and oriented x3,exam grossly non-focal EXTREMITIES: normal ASSESSMENT/PLAN: 1) Health maintenance: Pap done with HPV. Mammogram ordered Colon cancer screening: up to date with screening 2) Follow up one year or sooner as needed Georgia Lucero MD documented in this encounter [facility] 11-17-2023 Miscellaneous Notes See Wintegra message from 11/16/23. Erika Diaz RN 2nd message left for patient to call the office or send Zenprisehart message with preferred time. Nora Zuluaga, RN I called patient as I will likely need to be out the afternoon of December 28 for an appointment. I offered her to comein at 920 or 1110 that day and asked her to call or send marshallindexhart message w/ preferred time. T jailyn. RLR documented in this encounter [facility] 10-24-2022 Miscellaneous Notes October 25, 2022 PID: [id number] Karma Castaneda [address] [place] [address] Dear Ms. Kapoor, We are pleased to inform you that the results of your recent breast imaging exam on 10/21/2022 are normal. Early detection of cancer is very important. We also understand recommendations regarding breast cancer screening are controversial. Please discuss with your primary care provider which strategy is best for you and whether a mammogram is right for you. Your imaging studies and report will be kept on file at [facility] as part of your permanent medical record and are available for your continuing care. Thank you for allowing us to help in meeting your health care needs. Sincerely, Dr. 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 Karma is a 51 year old who presents for an annual gynecologic exam without complaints. Takes lysteda but usually only uses 1 day and then makes her period longer. Feels like the medication makes her more tired. Has menses most months, maybe skipped one. Occas hot flashes. Postmenopausal: no, menses q month. heavy for 2 days. Usual flow is 5-6 days. HRT use: No. Last Pap: 09/26/2019 normal HPV: 09/26/2019 negative History of abnormal pap: No Last mammogram: 2021 normal History of abnormal mammogram: No Sexually active: Yes OB History T3 L3 SAB0 IAB0 Ectopic0 Multiple0 Live Births3 Police Liaison History LMP: 02/09/2021 (Exact Date), Having periods Age at Menarche: Age at First : Age at Menopause: Police Liaison History Comments: Sexual Activity: Yes; Male Contraception: Tubal Ligation PAST MEDICAL HISTORY Diagnosis Date Generalized anxiety disorder Dr. Jessica hawley Other and unspecified hyperlipidemia Hyperlipidemia PAST SURGICAL HISTORY Procedure Laterality Date DELIVERY ONLY x 3/ with the first one she needed two units of blood because she was bleeding out vaginally. LIGATE FALLOPIAN TUBE Tubal ligation PAST SURGICAL HISTORY OF pins/fx right arm PAST SURGICAL HISTORY OF WISDOM TEETH FAMILY HISTORY Problem Relation Age of Onset Lipids Mother Heart Father age 50's of massive PA; known CAD prior? Hypertension Father Heart Maternal Grandfather of a massive PA Heart Paternal Grandfather CHF, age 90's Lipids Sister Lipids Brother SOCIAL HISTORY Social History Tobacco Use Smoking status: Never Smoker Smokeless tobacco: Never Used Vaping Use Vaping Use: Never used Substance Use Topics Alcohol use: No Drug use: No REVIEW OF SYSTEMS Abdomen: No abdominal pain, nausea, vomiting, diarrhea, or constipation. No bloating, early satiety, indigestion, or increased flatulence. Bladder: No dysuria, gross hematuria, urinary frequency, urinary urgency, or incontinence Breast: No breast lumps, nipple d/c, overlying skin changes, redness or skin retraction Allergies and current medication updated:Yes EXAM: LMP 02/09/2021 GENERAL: pleasant, female in no apparent distress HEENT: Normocephalic, atraumatic, mucus membranes moist and no lesions NECK: Supple, full range of motion, no adenopathy and thyroid normal DERMATOLOGY: Normal, without lesions, non-icteric and non-hirsute BREAST: soft, non-tender, symmetric, no dominant mass, normal nipple-areolar complex, no lymphadenopathy and no nipple discharge CHEST: Normal inspiratory effort ABDOMEN: soft, non-tender and no masses PELVIC: external genitalia normal, normal Bartholin's glands, urethra, [place]'s glands, no vulvar lesions, no cervical lesions, good vaginal support, physiologic discharge present, normal appearing perineal body and perianal region BIMANUAL: uterus normal size, shape and consistency, no adnexal masses and non-tender RECTOVAGINAL: rectovaginal exam negative for any masses or nodularity. NEURO: alert and oriented x3,exam grossly non-focal EXTREMITIES: normal ASSESSMENT/PLAN: 1) Health maintenance: Pap/HPV up to date. Mammogram ordered colon ca screening up to date per PCP 2) Follow up one year or sooner as needed Cont. lysteda prn Georgia Lucero MD documented in this encounter [facility] 07-29-2009 History of Past i llness Narrative Problem Noted Date Resolved Date Routine general medical exam ination at a health care facility 07/29/2009 11/20/2009 Overview: 07/29/2009, establish care Gynecological examination 07/29/20092009 Overview: [facility] [place], [facility] [place] Maternal age > 35, multigravida 05/06/2009 11/20/2009 Previous delivery, antepartum condition or complication 05/06/2009 11/20/2009 documented as of this encounter (statuses as of 04/05/2022) [facility]11[facility] History of Past illness Narrative* Problem Noted Date Resolved Date Routine general medical exam ination at a health care facility 07/29/2009 11/20/2009 Overview: 07/29/2009, establish care Gynecological examination 07/29/20092009 Overview: [facility] [place], [facility] [place] Maternal age > 35, multigravida 05/06/2009 11/20/2009 Previous delivery, antepartum condition or complication 05/06/2009 11/20/2009 documented as of this encounter (statuses as of 10/26/2022) [facility] History of Past illness Narrative* Problem Noted Date Diagnosed Date Resolved Date Routine general medical exam ination at a health care facility 07/29/2009 11/20/2009 Overview: 07/29/2009, establish care Gynecological examination 07/29/2009 Overview: [facility], [facility] [place] Maternal age > 35, multigravida 05/06/2009 11/20/2009 Previous delivery, antepartum condition or complication 05/06/2009 11/20/2009 documented as of this encounter (statuses as of 11/17/2023) [facility]No assessment information availableWDay[facility] Work Phone: Evaluation note* Diagnosis Encounter for gynecological examination (general) (routine) without abnormal findings- Primary Encounter for screening mammogram for breast cancer Obesity, Class II, BMI 35-39.9 Obesity, unspecified [facility] Diagnosis Encounter for gynecological examination (general) (routine) without abnormal findings- Primary Encounter for screening for human papillomavirus (HPV) Special screening examination for human papillomavirus (HPV) Pap smear for cervical cancer screening Screening for malignant neoplasm of the cervix Encounter for screening mammogram for breast cancer [facility] encounter [facility]* Diagnosis Encounter for gynecological examination (general) (routine) without abnormal findings Encounter for screening mammogram for breast cancer documented in this encounter [facility]* Diagnosis Vulvar cyst- Primary Other specified noninflammatory disorder of vulva and perineum [facility] Diagnosis Vulvar cyst- Primary Other specified noninflammatory disorder of vulva and perineum [facility]* Diagnosis Hyperlipidemia, unspecified Encounter for general adult medical examination without abnormal findings documented in this encounter [facility] Work Phone: Evaluation note* Diagnosis Encounter for gynecological examination (general) (routine) without abnormal findings- Primary Encounter for screening mammogram for breast cancer [facility] Diagnosis Encounter for gynecological examination (general) (routine) without abnormal findings Encounter for screening mammogram for breast cancer documented in this encounter [facility] for referral (narrative)* Diagnostic Procedure Only (Routine) - Authorized Specialty Diagnoses / Procedures Referred By Contac t Referred To Contact [facility] Diagnoses Encounter for gynecological examination (general) (routine) without abnormal findings Encounter for screening mammogram for breast cancer Procedures MARCOS SCREENING SCREENING MAMMOGRAPHY BI 2-VIEW BREAST INC Georgia Stone MD [address] [place] [address] [facility] [address] [address] Referral ID Status Reason Start Date Expiration Date Visits Requested Visits Authorized [id number] Authorized Auto-Generat ed Referral 04/05/2022 05/05/2023 1 1 [facility] for referral (narrative)* Diagnostic Procedure Only (Routine) - Authorized Specialty Diagnoses / Procedures Referred By Popeye t Referred To Contact [facility] Diagnoses Encounter for gynecological examination (general) (routine) without abnormal findings Encounter for screening mammogram for breast cancer Procedures MARCOS SCREENING W LA SCREENING DIGITAL BREAST TOMOSYNTHESIS BI SCREENING MAMMOGRAPHY BI 2-VIEW BREAST INC Georgia Stone MD [address] [place] [address] [facility] [address] [place] [address] Referral ID Status Reason Start Date Expiration Date Visits Requested Visits Authorized [id number] Authorized Auto-Generat ed Referral 12/29/2023 01/27/2025 1 1 T [facility] for visit Narrative* Diagnostic Procedure Only (Routine) - Closed Specialty Diagnoses / Procedures Referred By Contac t Referred To Contact [facility] Diagnoses Encounter for gynecological examination (general) (routine) without abnormal findings Encounter for screening mammogram for breast cancer Procedures MARCOS SCREENING W LA SCREENING DIGITAL BREAST TOMOSYNTHESIS BI SCREENING MAMMOGRAPHY BI 2-VIEW BREAST INC Georgia Stone MD [address] [place] [address] [facility] [address] [place] [address] Referral ID Status Reason Start Date Expiration Date V isits Requested Visits Authorized [id number] Closed Auto-Generate d Referral 12/29/2023 01/27/2025 1 1 [facility]* Diagnostic Procedure Only (Routine) - Closed Specialty Diagnoses / Procedures Referred By Contac t Referred To Contact [facility] Diagnoses Encounter for gynecological examination (general) (routine) without abnormal findings Encounter for screening mammogram for breast cancer Procedures MARCOS SCREENING W LA SCREENING DIGITAL BREAST TOMOSYNTHESIS BI SCREENING MAMMOGRAPHY BI 2-VIEW BREAST INC Georgia Stone MD [address] [place] [address] Phone: tel: fax: [facility] [address] [place] [address] Referral ID Status Reason Start Date Expiration Date V isits Requested Visits Authorized [id number] Closed Auto-Generate d Referral 12/29/2023 01/27/2025 1 1 [facility] Chief Complaint and Reason for Visit Chief Complaint DYSPHAGIA Family History No Family History Records Found Relationship Condition Age at Onset Recorded Date/T paige father Cardiac disease Unknown Hypertension Unknown mother Hypertension Unknown Cardiac disease Unknown Advance Directives No Advanced Directives Records Found Advance Directive Response Recorded Date/ Time Living Will No November 27, 2020 1:31pm 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 No November 27 1:31pm Summary Purpose Reason for Referral Specialty Diagnoses / Procedures Referred By Contac t Referred To Contact Radiology Diagnoses Hyperlipidemia, unspecified Encounter for general adult medical examination without abnormal findings Procedures CT cardiac scoring wo IV contrast Vickey Del Toro MD [address] [place] [address] Referral ID Status Reason Start Date Expiration Date Visits Requested Visits Authorized [id number] Pending Review Perform Procedure 03/27/2024 03/27/2025 1 1 Additional Source Comments Goals (unrecognized section and content) Goals may be documented in a n alternate sectionGoals may be documented in an alternate section Source Comments (unrecognize d section and content) In the event this informatio n is protected by the Federal Confidentiality of Alcohol and Drug Abuse Patient Records regulations: The Federal rules restrict any use of the information to criminally investigate or prosecute any alcohol or drug abuse patient.[facility] the event this information is protected by the Federal Confidentiality of Alcohol and Drug Abuse Patient Records regulations: The Federal rules restrict any use of the information to criminally investigate or prosecute any alcohol or drug abuse patient.[facility] Center[facility] the event this information is protected by the Federal Confidentiality of Alcohol and Drug Abuse Patient Records regulations: The Federal rules restrict any use of the information to criminally investigate or prosecute any alcohol or drug abuse patient.[facility] the event this information is protected by the Federal Confidentiality of Alcohol and Drug Abuse Patient Records regulations: The Federal rules restrict any use of the information to criminally investigate or prosecute any alcohol or drug abuse patient.[facility] the event this information is protected by the Federal Confidentiality of Alcohol and Drug Abuse Patient Records regulations: The Federal rules restrict any use of the information to criminally investigate or prosecute any alcohol or drug abuse patient.[facility] Center[facility] the event this information is protected by the Federal Confidentiality of Alcohol and Drug Abuse Patient Records regulations: The Federal rules restrict any use of the information to criminally investigate or prosecute any alcohol or drug abuse patient.[facility] Center[facility] the event this information is protected by the Federal Confidentiality of Alcohol and Drug Abuse Patient Records regulations: The Federal rules restrict any use of the information to criminally investigate or prosecute any alcohol or drug abuse patient.[facility] Center[facility] the event this information is protected by the Federal Confidentiality of Alcohol and Drug Abuse Patient Records regulations: The Federal rules restrict any use of the information to criminally investigate or prosecute any alcohol or drug abuse patient.[facility] Center[facility] the event this information is protected by the Federal Confidentiality of Alcohol and Drug Abuse Patient Records regulations: The Federal rules restrict any use of the information to criminally investigate or prosecute any alcohol or drug abuse patient.[facility] Center[facility] the event this information is protected by the Federal Confidentiality of Alcohol and Drug Abuse Patient Records regulations: The Federal rules restrict any use of the information to criminally investigate or prosecute any alcohol or drug abuse patient.[facility] Center[facility] the event this information is protected by the Federal Confidentiality of Alcohol and Drug Abuse Patient Records regulations: The Federal rules restrict any use of the information to criminally investigate or prosecute any alcohol or drug abuse patient.[facility] Center[facility] the event this information is protected by the Federal Confidentiality of Alcohol and Drug Abuse Patient Records regulations: The Federal rules restrict any use of the information to criminally investigate or prosecute any alcohol or drug abuse patient.[facility] Center[facility] the event this information is protected by the Federal Confidentiality of Alcohol and Drug Abuse Patient Records regulations: The Federal rules restrict any use of the information to criminally investigate or prosecute any alcohol or drug abuse patient.[facility] Reason for Visit (unrecogniz ed section and content) Reason Comments Yearly Exam Reason Comments Appointment Reason Comments Patient Question Reason Comments Possible cyst Reason Comments Vaginal Problem Specialty Diagnoses / Procedures Referred By Contac t Referred To Contact Radiology Diagnoses Hyperlipidemia, unspecified Encounter for general adult medical examination without abnormal findings Procedures CT cardiac scoring wo IV contrast Vickey Del Toro MD 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 Specialty Start Date End Date Vickey Del Toro MD [address] [place], [place] [id number] PCP - General Family Medicine 02/03/16 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 Specialty Start Date End Date Vickey Del Toro MD [address] [place] [address] PCP - General Family Medicine 02/03/16 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 Specialty Start Date End Date Vickey Del Toro MD [address] [place] [address] PCP - General Family Medicine 02/03/16 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 Specialty Start Date End Date Vickey Del Toro MD [address] [place] [address] PCP - General Family Medicine 02/03/16 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 Specialty Start Date End Date Vickey Del Toro MD [address] [place] [address] PCP - General Family Medicine 02/03/16 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 Specialty Start Date End Date Vickey Del Toro MD [address] [place] [address] PCP - General Family Medicine 02/03/16 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 Specialty Start Date End Date Vickey Del Toro MD [address] [place] [address] PCP - General Family Medicine 02/03/16 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 Specialty Start Date End Date Vickey Del Toro MD [address] [place] [address] PCP - General Family Medicine 02/03/16 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 Specialty Start Date End Date Vickey Del Toro MD [address] [place] [address] PCP - General Family Medicine 04/11/24 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 Specialty Start Date End Date Vickey Del Toro MD [address] [place] [address] PCP - General Family Medicine 02/03/16 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 Specialty Start Date End Date Vickey Del Toro MD [address] [place] [address] PCP - General Family Medicine 02/03/16 INFORMATION SOURCE (unrecogn ized section and content) DATE CREATED AUTHOR 04/24/2024 [facility] DATE CREATED AUTHOR AUTHOR'S ORGANIZ ATION 01/13/2025 [facility] DATE CREATED AUTHOR AUTHOR'S ORGANIZ ATION 04/11/2025 [facility] FOR RECORDS PERTAINING TO PATIENTS WHO ARE OR HAVE BEEN ENROLLED IN A CHEMICAL DEPENDENCY/SUBSTANCEABUSE PROGRAM, SOME INFORMATION MAY BE OMITTED. This clinical summary was aggregated from multiple sources. Caution should be exercised in using it in the provision of clinical care. This summary normalizes information from multiple sources, and as a consequence, information in this document may materially change the coding, format and clinical context of patient data. In addition, data may be omitted in some cases. CLINICAL DECISIONS SHOULD BE BASED ON THE PRIMARY CLINICAL RECORDS. [employer] provides no warranty or guarantee of the accuracy or completeness of information in this document.
--- OUTSIDE RECORDS SUMMARY | 2025-04-12 07:35 | XMS RPT_ITS | CCD ---
Author Organization [facility] Informat ion Partnership [employer] [facility] Care Team Providers Care Computer Applications Developer Name Role Phone Vickey Del Toro MD [...] ON FILE] Propensity to adverse reactions (disorder) [facility] 2 Repository Medications Current Medications Medication Drug [...] DIREC Ton 04-09-2025 IDANIA,DIRECT Negative Normal Negative [facility] Comment on above: Order Comment: Order Date: 06/03/24 Order Info: 16996-8 - [facility] PER[facility]CE TEST ENGINEER TO SPECIFY Result Comment: Perf ormed at: [facility] [address] [id number] Manager Willow: Gibson Heaton PhD, Phone: [phone] Performed By: #### L 400.0001 #### [facility] [address] [place], [place], [address] CBC W/Diff, Automatedon 08 ATYPICAL LYMPH 2+ Normal [facility] Comment on above: Order Comment: Order Date: 04/08/25 Order Info: 0184-1 - CBCD Order Info: 52391-3 - SED Performed By: #### L 100.0100, L503.6150, L500.4050, L3100.5055, L503.6550, L101.9900, L501.9520 #### [facility] [address] [place], [address] CRPon 04-08-2025 C-REACTIVE PROT 12.50 mg/L High 0.0-3.0 [facility] Comment on above: Order Comment: Order Date: 06/03/24 Order Info: 56498-1 - [facility]CE TEST ENGINEER TO SPECIFY Performed By: #### L 400.0001 #### [facility] [address] [place], [address] Comprehensive Metabolic Prof shirley 04-08-2025 Albumin [Mass/Vol] 4.3 g/dL Normal 3.5-5.0 [facility] Comment on above: Order Comment: Order Date: 04/08/25 Order Info: 785- - CMP Order Info: - LIPID Order Info: 57662-5 - CRP Order Info: 3015-11 - TSH Order Info: 2497-12 - FE Order Info: 2275-12 - EL Order Info: 552-09 - [facility] Performed By: #### L 100.0100, L503.6150, L500.4050, L3100.5055, L503.6550, L101.9900, L501.9520 #### [facility] [address] [place], [place], [address] Albumin/Globulin [Mass ratio] 1.2 {ratio} Normal 0.9-2.4 [facility] Comment on above: Order Comment: Order Date: 04/08/25 Order Info: 785-09 - CMP Order Info: - LIPID Order Info: - CRP Order Info: 3015-11 - TSH Order Info: 2497-12 - FE Order Info: 2275-12 - EL Order Info: 552-09 - [facility] Performed By: #### L 100.0100, L503.6150, L500.4050, L3100.5055, L503.6550, L101.9900, L501.9520 #### [facility] [address] [place], [place], [address] ALK PHOS 190 U/L High 35-104 [facility] Comment on above: Order Comment: Order Date: 04/08/25 Order Info: 785-09 - CMP Order Info: - LIPID Order Info: 14271-7 - CRP Order Info: 3015-11 - TSH Order Info: 2497-12 - FE Order Info: 2275-12 - EL Order Info: 552-09 - [facility] Performed By: #### L 100.0100, L503.6150, L500.4050, L3100.5055, L503.6550, L101.9900, L501.9520 #### [facility] [address] [place], [address] ALT [Catalytic activity/Vol] 469 U/L High <=34 [facility] Comment on above: Order Comment: Order Date: 04/08/25 Order Info: 86-1 - CMP Order Info: - LIPID Order Info: 46070-3 - CRP Order Info: 3015-11 - TSH Order Info: 2497-12 FE Order Info: 2275-12 - EL Order Info: 552- - [facility] Performed By: #### L 100.0100, L503.6150, L500.4050, L3100.5055, L503.6550, L101.9900, L501.9520 #### [facility] [address] [place], [address] AST [Catalytic activity/Vol] 290 U/L High <=31 [facility] Comment on above: Order Comment: Order Date: 04/08/25 Order Info: 785-1 - CMP Order Info: - LIPID Order Info: 36870-4 - CRP Order Info: 3015-11 - TSH Order Info: 2497-12 FE Order Info: 2275-12 - EL Order Info: 552-09 - [facility] Performed By: #### L 100.0100, L503.6150, L500.4050, L3100.5055, L503.6550, L101.9900, L501.9520 #### [facility] [address] [place], [address] Bilirubin [Mass/Vol] 0.54 mg/dL Normal 0.00-1.30 [facility] Comment on above: Order Comment: Order Date: 04/08/25 Order Info: 86-1 - CMP Order Info: 89593-8 - LIPID Order Info: 54489-9 - CRP Order Info: 3015-11 - TSH Order Info: 2497-12 - FE Order Info: 2275-12 EL Order Info: 552-09 - [facility] Performed By: #### L 100.0100, L503.6150, L500.4050, L3100.5055, L503.6550, L101.9900, L501.9520 #### [facility] [address] [place], [address] BUN/CRE 12.5 RATIO Normal 10-20 [facility] Comment on above: Order Comment: Order Date: 04/08/25 Order Info: 0786-1 - CMP Order Info: 21616-8 - LIPID Order Info: 84585-9 - CRP Order Info: 3015-11 - TSH Order Info: 2497-12 - FE Order Info: 2275-12 - EL Order Info: 552-09 - [facility] Performed By: #### L 100.0100, L503.6150, L500.4050, L3100.5055, L503.6550, L101.9900, L501.9520 #### [facility] [address] [place], [address] Calcium [Mass/Vol] 9.6 mg/dL Normal 7.6-11.0 [facility] Comment on above: Order Comment: Order Date: 04/08/25 Order Info: 0786-1 - CMP Order Info: 65497-5 - LIPID Order Info: 10929-0 - CRP Order Info: 3 - TSH Order Info: 2497-12 - FE Order Info: 2275-12 - EL Order Info: 552-09 - [facility] Performed By: #### L 100.0100, L503.6150, L500.4050, L3100.5055, L503.6550, L101.9900, L501.9520 #### [facility] [address] [place], [address] Chloride [Moles/Vol] 98 mmol/L Normal 98-108 [facility] Comment on above: Order Comment: Order Date: 04/08/25 Order Info: 0786-1 - CMP Order Info: 73479-6 - LIPID Order Info: - CRP Order Info: 3015-11 - TSH Order Info: 2497-12 FE Order Info: 2275-12 EL Order Info: 552-09 - [facility] Performed By: #### L 100.0100, L503.6150, L500.4050, L3100.5055, L503.6550, L101.9900, L501.9520 #### [facility] [address] [place], [place], [address] CO2 [Moles/Vol] 25.8 mmol/L Normal 21.0-32.0 [facility] Comment on above: Order Comment: Order Date: 04/08/25 Order Info: 07 - CMP Order Info: - LIPID Order Info: - CRP Order Info: 3015-11 - TSH Order Info: 2497-12 FE Order Info: 2275-12 EL Order Info: 552-09 - [facility] Performed By: #### L 100.0100, L503.6150, L500.4050, L3100.5055, L503.6550, L101.9900, L501.9520 #### [facility] [address] [place], [address] Creatinine [Mass/Vol] 1.07 mg/dL Normal 0.70-1.20 [facility] Comment on above: Order Comment: Order Date: 04/08/25 Order Info: 0786 - CMP Order Info: - LIPID Order Info: - CRP Order Info: 3015-11 - TSH Order Info: 2497-12 - FE Order Info: 2275-12 - EL Order Info: 552-09 - [facility] Performed By: #### L 100.0100, L503.6150, L500.4050, L3100.5055, L503.6550, L101.9900, L501.9520 #### [facility] [address] [place], [address] GAP 14 Normal 5-15 [facility] Comment on above: Order Comment: Order Date: 04/08/25 Order Info: 785- - CMP Order Info: - LIPID Order Info: 30388-9 - CRP Order Info: 3 - TSH Order Info: 2497-12 - FE Order Info: 2275-12 - EL Order Info: 552- - [facility] Performed By: #### L 100.0100, L503.6150, L500.4050, L3100.5055, L503.6550, L101.9900, L501.9520 #### [facility] [address] [place], [place], [address] GFR/1.73 sq M.predicted among non-blacks MDRD (S/P/Bld) [Vol rate/Area] 62 mL/min/{1.73_m2} Normal >60 [facility] Comment on above: Order Comment: Order Date: 04/08/25 Order Info: 785-09 - CMP Order Info: - LIPID Order Info: 14276-3 - CRP Order Info: 3015-11 - TSH Order Info: 2497-12 - FE Order Info: 2275-12 - EL Order Info: 552-09 - [facility] Result Comment: mL/m in/1.73m2 CKD-EPI Creatinine Equation (2020) Performed By: #### L 100.0100, L503.6150, L500.4050, L3100.5055, L503.6550, L101.9900, L501.9520 #### [facility] [address] [place], [address] Globulin (S) [Mass/Vol] 3.5 g/dL Normal 2.2-4.2 [facility] Comment on above: Order Comment: Order Date: 04/08/25 Order Info: 785-09 - CMP Order Info: - LIPID Order Info: 22197-5 - CRP Order Info: 3 - TSH Order Info: 2497-12 - FE Order Info: 2275-12 - EL Order Info: 0553-1 - [facility] Performed By: #### L 100.0100, L503.6150, L500.4050, L3100.5055, L503.6550, L101.9900, L501.9520 #### [facility] [address] [place], [address] Glucose [Mass/Vol] 98 mg/dL Normal 70-99 [facility] Comment on above: Order Comment: Order Date: 04/08/25 Order Info: 0786-1 - CMP Order Info: 48069-3 - LIPID Order Info: 95250-4 - CRP Order Info: 3015-11 - TSH Order Info: 2497-12 - FE Order Info: 2275-12 EL Order Info: 05-1 - [facility] Performed By: #### L 100.0100, L503.6150, L500.4050, L3100.5055, L503.6550, L101.9900, L501.9520 #### [facility] [address] [place], [address] Potassium [Moles/Vol] 3.8 mmol/L Normal 3.3-5.1 [facility] Comment on above: Order Comment: Order Date: 04/08/25 Order Info: 0786-1 - CMP Order Info: 35663-1 - LIPID Order Info: 42867-8 - CRP Order Info: 3015-11 - TSH Order Info: 2497-12 FE Order Info: 2275-12 - EL Order Info: 0553-1 - [facility] Performed By: #### L 100.0100, L503.6150, L500.4050, L3100.5055, L503.6550, L101.9900, L501.9520 #### [facility] [address] [place], [address] Sodium [Moles/Vol] 138 mmol/L Normal 133-145 [facility] Comment on above: Order Comment: Order Date: 04/08/25 Order Info: 0786-1 - CMP Order Info: 80004-7 - LIPID Order Info: 99863-1 - CRP Order Info: 3015-11 - TSH Order Info: 2497-12 - FE Order Info: 2275-12 - EL Order Info: 552-09 - [facility] Performed By: #### L 100.0100, L503.6150, L500.4050, L3100.5055, L503.6550, L101.9900, L501.9520 #### [facility] [address] [place], [place], [address] [phone] PROT 7.8 g/dL Normal 5.9-8.4 [facility] Comment on above: Order Comment: Order Date: 04/08/25 Order Info: 0786- - CMP Order Info: 07640-8 - LIPID Order Info: - CRP Order Info: 3015-11 - TSH Order Info: 2497-12 - FE Order Info: 2275-12 - EL Order Info: 552-09 - [facility] Performed By: #### L 100.0100, L503.6150, L500.4050, L3100.5055, L503.6550, L101.9900, L501.9520 #### [facility] [address] [place], [place], [address] [phone] Urea nitrogen [Mass/Vol] 13 mg/dL Normal 4-19 [facility] Comment on above: Order Comment: Order Date: 04/08/25 Order Info: 0786- - CMP Order Info: 12534-5 - LIPID Order Info: 14929-1 - CRP Order Info: 3015-11 - TSH Order Info: 2497-12 - FE Order Info: 2275-12 - EL Order Info: 552-09 - [facility] Performed By: #### L 100.0100, L503.6150, L500.4050, L3100.5055, L503.6550, L101.9900, L501.9520 #### [facility] [address] [place], [place], [address] (918) Erythrocyte Sed Rateon 04-08 SED RATE 30 mm/hr Normal 0-30 [facility] Comment on above: Order Comment: Order Date: 04/08/25 Order Info: 0184-1 - CBCD Order Info: 38441-9 - SED Performed By: #### L 100.0100, L503.6150, L500.4050, L3100.5055, L503.6550, L101.9900, L501.9520 #### [facility] [address] [place], [place], [address] FSH and LHon 04-08-2025 FSH 35.2 mIU/mL Normal [facility] Comment on above: Order Comment: Order Date: 04/08/25 Order Info: 0786-1 - CMP Order Info: 52253-2 - LIPID Order Info: 82152-7 - CRP Order Info: 3015-11 - TSH [...] L503.6150, L500.4050, L3100.5055, L503.6550, L101.9900, L501.9520 #### [facility] [address] [place], [place], [address] LH 26.9 mIU/mL Normal [facility] Comment on above: Order Comment: Order Date: 04/08/25 Order Info: 0786-1 - CMP Order Info: 24527-4 - LIPID Order Info: 68119-4 - CRP Order Info: 3 - TSH Order Info: 2497-12 - FE Order Info: 2275-12 - EL Order Info: 53-1 - [facility] Result Comment: FEMA LE: Follicular: 1.9-12.5 mIU/mL Midcycle: 8.7-76.3 mIU/mL Luteal: 0.5-16.9 mIU/mL Post Menopause: 15.9-54.0 mIU/mL MALE: 20-70 Years: 1.5-9.3 mIU/mL >70 Years: 3.1-34.6 mIU/mL Performed By: #### L 100.0100, L503.6150, L500.4050, L3100.5055, L503.6550, L101.9900, L501.9520 #### [facility] [address] [place], [place], [address] Ferritinon 04-08-2025 Ferritin [Mass/Vol] 97 ng/mL Normal 22-[address] [facility] Comment on above: Order Comment: Order Date: 04/08/25 Order Info: 0786-1 - CMP Order Info: 14666-3 - LIPID Order Info: 42057-9 - CRP Order Info: 3013 - TSH Order Info: 2497-12 - FE Order Info: 2275-12 - EL Order Info: 0553-1 - [facility] Performed By: #### L 100.0100, L503.6150, L500.4050, L3100.5055, L503.6550, L101.9900, L501.9520 #### [facility] [address] [place], [place], [address] [phone] Ironon 04-08-2025 Iron [Mass/Vol] 73 ug/dL Normal 50-170 [facility] Comment on above: Order Comment: Order Date: 04/08/25 Order Info: 0786-1 - CMP Order Info: 81737-3 - LIPID Order Info: 66223-0 - CRP Order Info: 301-3 - TSH Order Info: 24984 - FE Order Info: 4 - EL Order Info: 53-1 - [facility] Performed By: #### L 100.0100, L503.6150, L500.4050, L3100.5055, L503.6550, L101.9900, L501.9520 #### [facility] [address] [place], [address] L509.6001on 04-08-2025 CORTISOL 17.10 ug/dL Normal 6.02-18.40 [facility] Comment on above: Order Comment: Order Date: 06/03/24 Order Info: 86049-0 - [facility] PER[employer]CE TEST ENGINEER TO SPECIFY Performed By: #### L 400.0001 #### [facility] [address] [place], [address] Lipid Profileon 04-08-2025 CHOL:HDL 5.[address] [facility] Comment on above: Order Comment: Order Date: 04/08/25 Order Info: 0786-1 - CMP Order Info: 38231-4 - LIPID Order Info: 91245-1 - CRP Order Info: 6-3 - TSH Order Info: 24904-07 - FE Order Info: 4 - EL Order Info: 0553-1 - [facility] Performed By: #### L 500.4100 #### [facility] [address] [place], [place], [address] Cholesterol [Mass/Vol] 245 mg/dL High <=200 [facility] Comment on above: Order Comment: Order Date: 04/08/25 Order Info: 0786-1 - CMP Order Info: 19113-7 - LIPID Order Info: 25301-6 - CRP Order Info: 3015-3 - TSH Order Info: 2497-12 - FE Order Info: 4 - EL Order Info: 0553-1 - [facility] Result Comment: Chol esterol level, Desirable <200 mg/dL Borderline high cholesterol 200-239 mg/dL High cholesterol >=240 mg/dL Recommendations of the NCEP Adult Treatment Panel for the following risk-cutoff thresholds for the [place] population. Performed By: #### L 500.4100 #### [facility] [address] [place], [address] Cholesterol in HDL [Mass/Vol] 44 mg/dL Normal [facility] Comment on above: Order Comment: Order Date: 04/08/25 Order Info: 0786-1 - CMP Order Info: 93315-0 - LIPID Order Info: 77039-3 - CRP Order Info: 63 - TSH [...] age. Performed By: #### L 500.4100 #### [facility] [address] [place], [place], [phone] (047) Cholesterol in LDL [Mass/Vol] 162 mg/dL Normal [facility] Comment on above: Order Comment: Order Date: 04/08/25 Order Info: 0786-1 - CMP Order Info: 15545-8 - LIPID Order Info: 69359-8 - CRP Order Info: 3 - TSH Order Info: 2497-12 FE Order Info: 2275-12 - EL Order Info: 552-09 - [facility] Result Comment: Bord ftowas=979-897 mg/dL Higher Pehq=290 mg/dL or greater Friedwald Equation for LDL-C Performed By: #### L 500.4100 #### [facility] [address] [place], [place], [address] (841) Cholesterol in VLDL [Mass/Vol] 39 mg/dL Normal 5-40 [facility] Comment on above: Order Comment: Order Date: 04/08/25 Order Info: 0786-1 - CMP Order Info: 07468-9 - LIPID Order Info: 97816-7 - CRP Order Info: 63 - TSH Order Info: 2497-12 - FE Order Info: 2275-12 - EL Order Info: 53 - [facility] Performed By: #### L 500.4100 #### [facility] [address] [place], [place], [address] (255) Triglyceride [Mass/Vol] 193 mg/dL Normal [facility] Comment on above: Order Comment: Order Date: 04/08/25 Order Info: 0786- - CMP Order Info: 93205-5 - LIPID Order Info: 43493-7 - CRP Order Info: 3 - TSH Order Info: 2497-12 FE Order Info: 2275-12 - EL Order Info: 552-09 - [facility] Result Comment: The drugs N-Acetylcysteine and Metamizole may falsely depress this assay. Normal range: <150 mg/dL Borderline High: 150-199 mg/dL High: 200-499 mg/dL Very High: >500 mg/dL Performed By: #### L 500.4100 #### [facility] [address] [place], [place], [address] Thyroid Stim Hormone (TSH)on 04-08-2025 TSH 2.300 uIU/mL Normal 0.300-4.200 [facility] Comment on above: Order Comment: Order Date: 04/08/25 Order Info: 0786- - CMP Order Info: 69966-2 - LIPID Order Info: 18750-8 - CRP Order Info: 3 - TSH Order Info: 2497-12 Order Info: 2275-12 - EL Order Info: 552-09 - [facility] Performed By: #### L 100.0100, L503.6150, L500.4050, L3100.5055, L503.6550, L101.9900, L501.9520 #### [facility] [address] [place], [place], [address] [phone] Urinalysis, Completeon 04-08 BACTERIA 0 SEEN Normal None Seen [facility] Comment on above: Order Comment: Order Date: 06/03/24 Order Info: 35280-0 - [facility] TEST ENGINEER TO SPECIFY Performed By: #### L 400.0001 #### [facility] [address] [place], [place], [address] (621) EPI,SQUAMOUS 0 SEEN Normal 5-10 [facility] Comment on above: Order Comment: Order Date: 06/03/24 Order Info: 07012-7 - [facility] TEST ENGINEER TO SPECIFY Performed By: #### L 400.0001 #### [facility] [address] [place], [address] Mucus Ql (Urine sed) [address] [facility] Comment on above: Order Comment: Order Date: 06/03/24 Order Info: 06210-1 - [facility] PERFORMANCE TEST ENGINEER TO SPECIFY Performed By: #### L 400.0001 #### [facility] [address] [place], [address] RBC 0 SEEN Normal 0-5 [facility] Comment on above: Order Comment: Order Date: 06/03/24 Order Info: 06519-8 - [facility]CE TEST ENGINEER TO SPECIFY Performed By: #### L 400.0001 #### [facility] [address] [place], [address] WBC 0 SEEN Normal 0-5 [facility] Comment on above: Order Comment: Order Date: 06/03/24 Order Info: 68448-6 - [facility] TEST ENGINEER TO SPECIFY Performed By: #### L 400.0001 #### [facility] [address] [place], [address] Vitamin B12on 04-08-2025 Cobalamin (Vitamin B12) [Mass/Vol] 1747 pg/mL High 180-914 [facility] Comment on above: Order Comment: Order Date: 04/08/25 Order Info: 0786-1 - CMP Order Info: 20570-5 - LIPID Order Info: 64647-0 - CRP Order Info: 3016-3 - TSH Order Info: 2498-4 - FE Order Info: 2276-4 - EL Order Info: 0553-1 - [facility] Performed By: #### L 506.1001, L509.6001, L503.0106 #### [facility] [address] [place], [address] Vitamin D,25 Hydroxyon 04-08 Vitamin D 25-OH 97.2 ng/mL Normal 30-100 [facility] Comment on above: Order Comment: Order Date: 06/03/24 Order Info: 89715-3 - [facility] TEST ENGINEER TO SPECIFY Result Comment: Magui min D Status Deficiency: <20 ng/mL (50nmol/L) Insufficiency: 20-30 ng/mL (50-75 nmol/L) Sufficiency: 30-100 ng/mL (75-250 nmol/L) Toxicity: >100 ng/mL (>250 nmol/L) Performed By: #### L 400.0001 #### [facility] [address] [place], [place], [address] MR/BMS.BPon 03-17-2025 MR/BMS.BP [facility] [address] [facility], [address] [place], [place] [address] OFFICE VISIT Date of Service: 03/17/25 MR#: [id number] Acct: [id number] Name: KARMA KAPOOR Rep #: [id number] : 1970 Provider: Dr. Kian Ivan se, DO Age/Sex: 54/F Location: [facility].BP Status: Signed Intake Vital Signs 01/30/25 16:33 [...] other (marylin (more content not included)... Normal [facility] MR/BMS.BPon 01-30-2025 MR/BMS.BP [facility] [facility], [address] [place] [address] OFFICE VISIT Date of Service: 01/30/25 MR#: [id number] Acct: [id number] Name: KARMA KAPOOR Rep #: [id number] : 1970 Provider: Dr. Kian Ivan se, DO Age/Sex: 54/F Location: [facility] [place].BP Status: Signed Intake Vital Signs 10/30/24 16:22 [...] DIMA (generaliz (more content not included)... Normal [facility] CNOVon 01-10-2025 CNOV Office Visit (OBGYWM ) [facility],JO[facility] M ([id number]) 1970 F Date Time Provider Department 01/10/25 [...] Living3 SAB0 IAB0 Ectopic0 Multiple0 Live Births3 [employer] History LMP: 11/02/2024, Having periods Age at Menarche: 12 Age at First : Age at Menopause: [employer] History Comments: Sexual Activity: Yes; Male Contraception: [...] discussed with the Patient or Patient's Authorized Foster Care Case Manager. As applicable, any other physician, advance practice provider, medical student, or other health professional student that will be observing or involved in the sensitive examination for educational or training purposes was discussed with the Patient or Authorized Foster Care Case Manager. The Patient or Authorized Foster Care Case Manager has agreed to proceed with the sensitive [...] external genitalia normal, normal Bartholin's glands, urethra, [place]'s glands, no vulvar lesions, no cervical lesions, [...] of Date: (more content not included)... Normal [facility] MARCOS SCREENING W TOMOon 01-10 MARCOS SCREENING W LA * * *Final Report* * * DATE OF EXAM: Jan 10 2025 2:42PM WRW 0582 - MARCOS SCREENING W LA / PROCEDURE REASON: multiple diagnoses * * * * Physician Interpretation * * * * RESULT: [address] [address] [place] [address] #[id number] - MARCOS SCREENING W LA HISTORY: 54 [...] Kristin Bahena M.D. Electronically signed on: 01/13/2025 Stock Patch Sawyer: ALLYN Transcribe Date/Time: Jan 10 2025 2:31P Dictated by: KRISTIN BAHENA MD This examination was interpreted and the report reviewed and electronically signed by: KRISTIN BAHENA MD on Jan 13 2025 7:25AM EST [id number] Normal [facility] MR/BMS.BPon 10-30-2024 MR/BMS.BP [facility] [address] [facility], [address] [place] [address] OFFICE VISIT Date of Service: 10/30/24 MR#: [id number] Acct: [id number] Name: KARMA KAPOOR Rep #: [id number] : 1970 Provider: Dr. Kian Ivan se, DO Age/Sex: 53/F Location: [facility] [place].BP Status: Signed Intake Vital Signs 09/03/24 08:26 [...] carpal alessandro (more content not included)... Normal [facility] MR/BMS.BPon 09-03-2024 MR/BMS.BP [facility] [facility], [address] [place] [address] OFFICE VISIT Date of Service: 09/03/24 MR#: [id number] Acct: [id number] Name: KARMA KAPOOR Rep #: [id number] : 1970 Provider: Dr. Kian Ivan se, DO Age/Sex: 53/F Location: [facility].BP Status: Signed Intake Vital Signs 07/29/24 16:22 [...] stability. Could consider alternative to aripiprazole pending rn long term care stability. (2) DIMA (generalized anxiety disorder): Plan: [...] Randle Signature: Date (if applicable) CC: Normal [facility] MR/BMS.BPon 07-29-2024 MR/BMS.BP [facility] [address] [place] [address], [place] [address] OFFICE VISIT Date of Service: 07/29/24 MR#: [id number] Acct: [id number] Name: KARMA KAPOOR Rep #: [id number] : 1970 Provider: Dr. Kian Ivan se DO Age/Sex: 53/F Location: [facility] [place].BP Status: Signed Intake Vital Signs 04/30/24 16:30 [...] about her. Describes walking past others in [facility] and thinking that they were talking [...] regular ra (more content not included)... Normal [facility] Basic Metabolic Profile (BMP )on 06-18-2024 BUN/CRE 10.4 RATIO Normal 06-23 [facility] Comment on above: Order Comment: Order Date: 06/03/24 Order Info: [id number] - [facility] PERFORMANCE TEST ENGINEER TO SPECIFY Performed By: #### L 400.0001 #### [facility] [address] [place], [address] CA,Total 9.3 mg/dL Normal 8.5-10.1 [facility] Comment on above: Order Comment: Order Date: 06/03/24 Order Info: [id number] - [facility] PERFORMANCE TEST ENGINEER TO SPECIFY Performed By: #### L 400.0001 #### [facility] [address] [place], [address] Chloride [Moles/Vol] 100 mmol/L Normal 98-107 [facility] Comment on above: Order Comment: Order Date: 06/03/24 Order Info: [id number] - UAC PERFORMANCE TEST ENGINEER TO SPECIFY Performed By: #### L 400.0001 #### [facility] [address] [place], [address] CO2 [Moles/Vol] 30.0 mmol/L Normal 21.0-32.0 [facility] Comment on above: Order Comment: Order Date: 06/03/24 Order Info: [id number] - UAC PERFORMANCE TEST ENGINEER TO SPECIFY Performed By: #### L [id number] #### [facility] [address] [place], [address] Creatinine [Mass/Vol] 1.15 mg/dL High 0.55-1.02 [facility] Comment on above: Order Comment: Order Date: 06/03/24 Order Info: [id number] - UAC PERFORMANCE TEST ENGINEER TO SPECIFY Result Comment: The validity of the calculated GFR GFRAA in patients over 70 years has not been determined. Clinical correlation is essential. Performed By: #### L [id number] #### [facility] [address] [place], [address] EST GFR - AA 63 mL/min Normal >60 [facility] Comment on above: Order Comment: Order Date: 06/03/24 Order Info: [id number] - UAC PERFORMANCE TEST ENGINEER TO SPECIFY Result Comment: Afri can [place] GFR Calc Performed By: #### L [id number] #### [facility] [address] [place], [address] GAP 6 Normal 5-15 [facility] Comment on above: Order Comment: Order Date: 06/03/24 Order Info: [id number] - [facility] PERFORMANCE TEST ENGINEER TO SPECIFY Performed By: #### L 400.0001 #### [facility] [address] [place], [address] GFR/1.73 sq M.predicted among non-blacks MDRD (S/P/Bld) [Vol rate/Area] 52 mL/min/{1.73_m2} Low >60 [facility] Comment on above: Order Comment: Order Date: 06/03/24 Order Info: [id number] - [facility] PERFORMANCE TEST ENGINEER TO SPECIFY Result Comment: Non- GFR Calc Performed By: #### L 400.0001 #### [facility] [address] [place], [address] Glucose [Mass/Vol] 93 mg/dL Normal 74-106 [facility] Comment on above: Order Comment: Order Date: 06/03/24 Order Info: [id number] - [facility] PERFORMANCE TEST ENGINEER TO SPECIFY Performed By: #### L 400.0001 #### [facility] [address] [place], [address] Potassium [Moles/Vol] 3.6 mmol/L Normal 3.5-5.1 [facility] Comment on above: Order Comment: Order Date: 06/03/24 Order Info: [id number] - [facility] PERFORMANCE TEST ENGINEER TO SPECIFY Performed By: #### L 400.0001 #### [facility] [address] [place], [address] Sodium [Moles/Vol] 136 mmol/L Normal 136-145 [facility] Comment on above: Order Comment: Order Date: 06/03/24 Order Info: [id number] - [facility] PERFORMANCE TEST ENGINEER TO SPECIFY Performed By: #### L 400.0001 #### [facility] [address] [place], [address] Urea nitrogen [Mass/Vol] 12 mg/dL Normal 7-18 [facility] Comment on above: Order Comment: Order Date: 06/03/24 Order Info: [id number] - [facility] PERFORMANCE TEST ENGINEER TO SPECIFY Performed By: #### L [id number] #### [facility] [address] [place], [address] Basic Metabolic Profile (BMP )on 06-04-2024 BUN/CRE 14.3 RATIO Normal 10-20 [facility] Comment on above: Order Comment: Order Date: 06/03/24 Order Info: [id number] [place] [address] PERFORMANCE TEST ENGINEER TO SPECIFY Performed By: #### L [id number] #### [facility] [address] [place], [address] CA,Total 9.5 mg/dL Normal 8.5-10.1 [facility] Comment on above: Order Comment: Order Date: 06/03/24 Order Info: [id number] [facility] PERFORMANCE TEST ENGINEER TO SPECIFY Performed By: #### L 400.0001 #### [facility] [address] [place], [address] Chloride [Moles/Vol] 100 mmol/L Normal 98-107 [facility] Comment on above: Order Comment: Order Date: 06/03/24 Order Info: [address] [place] [address] PERFORMANCE TEST ENGINEER TO SPECIFY Performed By: #### L [id number] #### [facility] [address] [place], [address] CO2 [Moles/Vol] 30.0 mmol/L Normal 21.0-32.0 [facility] Comment on above: Order Comment: Order Date: 06/03/24 Order Info: [id number] - [facility] PERFORMANCE TEST ENGINEER TO SPECIFY Performed By: #### L [id number] #### [facility] [address] [place], [address] Creatinine [Mass/Vol] 1.12 mg/dL High 0.55-1.02 [facility] Comment on above: Order Comment: Order Date: 06/03/24 Order Info: [id number] - UAC PERFORMANCE TEST ENGINEER TO SPECIFY Result Comment: The validity of the calculated GFR GFRAA in patients over 70 years has not been determined. Clinical correlation is essential. Performed By: #### L [id number] #### [facility] [address] [place], [address] EST GFR - AA 65 mL/min Normal >60 [facility] Comment on above: Order Comment: Order Date: 06/03/24 Order Info: [id number] - UAC PERFORMANCE TEST ENGINEER TO SPECIFY Result Comment: Afri can [place] GFR Calc Performed By: #### L [id number] #### [facility] [address] [place], [address] GAP 6 Normal 5-15 [facility] Comment on above: Order Comment: Order Date: 06/03/24 Order Info: [id number] - [facility] PERFORMANCE TEST ENGINEER TO SPECIFY Performed By: #### L [id number] #### [facility] [address] [place], [address] GFR/1.73 sq M.predicted among non-blacks MDRD (S/P/Bld) [Vol rate/Area] 54 mL/min/{1.73_m2} Low >60 [facility] Comment on above: Order Comment: Order Date: 06/03/24 Order Info: [id number] - [facility]A PERFORMANCE TEST ENGINEER TO SPECIFY Result Comment: Non- GFR Calc Performed By: #### L [id number] #### [facility] [address] [place], [address] Glucose [Mass/Vol] 89 mg/dL Normal 74-106 [facility] Comment on above: Order Comment: Order Date: 06/03/24 Order Info: [id number] - UAC PERFORMANCE TEST ENGINEER TO SPECIFY Performed By: #### L 400.0001 #### [facility] [address] [place], [address] Potassium [Moles/Vol] 3.8 mmol/L Normal 3.5-5.1 [facility] Comment on above: Order Comment: Order Date: 06/03/24 Order Info: [id number] - [facility] PERFORMANCE TEST ENGINEER TO SPECIFY Performed By: #### L [id number] #### [facility] [address] [place], [address] Sodium [Moles/Vol] 136 mmol/L Normal 136-145 [facility] Comment on above: Order Comment: Order Date: 06/03/24 Order Info: [id number] - [facility] PERFORMANCE TEST ENGINEER TO SPECIFY Performed By: #### L 400.0001 #### [facility] [address] [place], [address] Urea nitrogen [Mass/Vol] 16 mg/dL Normal 7-18 [facility] Comment on above: Order Comment: Order Date: 06/03/24 Order Info: [id number] - [facility] PERFORMANCE TEST ENGINEER TO SPECIFY Performed By: #### L 400.0001 #### [facility] [address] [place], [address] CBC[facility] Erythrocyte distribution width (RBC) [Ratio] 13.3 % Normal 11.6-14.6 [facility] Comment on above: Order Comment: Order Date: 06/03/24 Order Info: [id number] - [facility] PERFORMANCE TEST ENGINEER TO SPECIFY Performed By: #### L 400.0001 #### [facility] [address] [place], [address] Hematocrit (Bld) [Volume fraction] 36.5 % Low 37-47 [facility] Comment on above: Order Comment: Order Date: 06/03/24 Order Info: [id number] - [facility] PERFORMANCE TEST ENGINEER TO SPECIFY Performed By: #### L 400.0001 #### [facility] [address] [place], [address] Hemoglobin (Bld) [Mass/Vol] 11.9 g/dL Low 12.0-15.0 [facility] Comment on above: Order Comment: Order Date: 06/03/24 Order Info: [id number] PERFORMANCE TEST ENGINEER TO SPECIFY Performed By: #### L 400.0001 #### [facility] [address] [place], [address] MCH (RBC) [Entitic mass] 30.0 pg Normal 27.0-32.0 [facility] Comment on above: Order Comment: Order Date: 06/03/24 Order Info: [address] [place] [address] PERFORMANCE TEST ENGINEER TO SPECIFY Performed By: #### L [id number] #### [facility] [address] [place], [address] MCHC (RBC) [Mass/Vol] 32.6 g/dL Normal 32-36 [facility] Comment on above: Order Comment: Order Date: 06/03/24 Order Info: [address] [place] [address] PERFORMANCE TEST ENGINEER TO SPECIFY Performed By: #### L [id number] #### [facility] [address] [place], [address] MCV (RBC) [Entitic vol] 91.9 fL Normal 81-99 [facility] Comment on above: Order Comment: Order Date: 06/03/24 Order Info: [id number] PERFORMANCE TEST ENGINEER TO SPECIFY Performed By: #### L 400.0001 #### [facility] [address] [place], [address] Platelet mean volume (Bld) [Entitic vol] 8.3 fL Normal 6.2-12.0 [facility] Comment on above: Order Comment: Order Date: 06/03/24 Order Info: [id number] PERFORMANCE TEST ENGINEER TO SPECIFY Performed By: #### L 400.0001 #### [facility] [address] [place], [address] Platelets (Bld) [#/Vol] 383 10*3/uL Normal 150-450 [facility] Comment on above: Order Comment: Order Date: 06/03/24 Order Info: [id number] [facility] PERFORMANCE TEST ENGINEER TO SPECIFY Performed By: #### L 400.0001 #### [facility] [address] [place], [address] RBC (Bld) [#/Vol] 3.97 10*6/uL Low 4.2-5.[address] [facility] Comment on above: Order Comment: Order Date: 06/03/24 Order Info: [address] [place] [address] PERFORMANCE TEST ENGINEER TO SPECIFY Performed By: #### L 400.0001 #### [facility] [address] [place], [address] RDW SD 45.5 fl High 35.1-43.9 [facility] Comment on above: Order Comment: Order Date: 06/03/24 Order Info: [address] [place] [address] PERFORMANCE TEST ENGINEER TO SPECIFY Performed By: #### L [id number] #### [facility] [address] [place], [address] WBC (Bld) [#/Vol] 6.4 10*3/uL Normal 4.4-11.0 [facility] Comment on above: Order Comment: Order Date: 06/03/24 Order Info: [id number] PERFORMANCE TEST ENGINEER TO SPECIFY Performed By: #### L 400.0001 #### [facility] [address] [place], [address] Thyroid Stim Hormone (TSH)on 06-04-2024 TSH 2.720 uIU/mL Normal 0.358-3.740 [facility] Comment on above: Order Comment: Order Date: 06/03/24 Order Info: [address] [place] [address] PERFORMANCE TEST ENGINEER TO SPECIFY Performed By: #### L [id number] #### [facility] [address] [place], [address] Urinalysis, Completeon 06-04 EPI,SQUAMOUS 5-10 SEEN Normal 5-10 [facility] Comment on above: Order Comment: Order Date: 06/03/24 Order Info: [address] [place] [address] PERFORMANCE TEST ENGINEER TO SPECIFY Performed By: #### L [id number] #### [facility] [address] [place], [address] RBC 0-5 SEEN Normal 0-5 [facility] Comment on above: Order Comment: Order Date: 06/03/24 Order Info: [address] [place] [address] PERFORMANCE TEST ENGINEER TO SPECIFY Performed By: #### L [id number] #### [facility] [address] [facility] [address] WBC 0-5 SEEN Normal 0-5 [facility] Comment on above: Order Comment: Order Date: 06/03/24 Order Info: [address] [place] [address] PERFORMANCE TEST ENGINEER TO SPECIFY Performed By: #### L [id number] #### [facility] [address] [facility] [address] BACTERIA RARE Normal None Seen [facility] Comment on above: Order Comment: Order Date: 06/03/24 Order Info: [address] [place] [address] PERFORMANCE TEST ENGINEER TO SPECIFY Performed By: #### L [id number] #### [facility] [address] [place], [address] Mucus Ql (Urine sed) [address] [facility] Comment on above: Order Comment: Order Date: 06/03/24 Order Info: [address] [place] [address] PERFORMANCE TEST ENGINEER TO SPECIFY Performed By: #### L [id number] #### [facility] [address] [facility] [address] MR/BMS.BPon 04-30-2024 MR/BMS.BP [place] [id number] [facility], [address] [place] [address] OFFICE VISIT Date of Service: 04/30/24 MR#: [id number] Acct: [id number] Name: KARMA KAPOOR Rep #: [id number] : 1970 Provider: Dr. Kian Ivan se, DO Age/Sex: 53/F Location: [facility].BP Status: Signed Intake Vital Signs 02/08/24 10:06 [...] life situation. Will be going camping in [place] this weekend. Has been taking medications without [...] other (appropriate for stated age) Insight good Felt Strip Finisher (more content not included)... Normal [facility] CT CARDIAC SCORING WO IV CON TRASTon 04-17-2024 CT CARDIAC SCORING WO IV CONTRAST Interpreted By: Jose Gupta, STUDY: CT CARDIAC SCORING WO IV CONTRAST; 04/17/2024 9:06 am INDICATION: Signs/Symptoms:SCREEN ING. COMPARISON: None. ACCESSION NUMBER(S): [id number] ORDERING CLINICIAN: VICKEY DEL TORO TECHNIQUE: Using [...] coronary heart disease events. According to the [place] [employer] Clinical Expert Consensus [...] Jose Gupta 04/19/2024 5:05 PM Dictation workstation: [id number] [facility] CNOVon 04-04-2024 CNOV Office Visit (OBGYWM ) KARMA KAPOOR ([id number]) 1970 F Date Time Provider Department 04/04/24 10:45 AM ANDRE WILD During your visit today, we recorded the following information about you: Pulse Respiration Blood pressure Weight 82/minute 12/minute 122/84 98.9 kg Last Period 02/05/24 Andre Wild APRN.CURTAIN CUTTER 04/04/2024 11:02 AM Signed Cigar Head Pegger offered: Patient declines. Karma Kapoor is a [...] L3 SAB0 IAB0 Ectopic0 Multiple0 Live Births3 Regional [employer] Life Sales History LMP: 02/05/2024 (Approximate), Having periods Age at Menarche: Age at First : Age at Menopause: [employer] Life Sales History Comments: Sexual Activity: Yes; Male Contraception: [...] Assessed 03/04/2024 REVIEW OF SYSTEMS Expanded ROS: CLEARANCE COORDINATOR: Negative for abnormal vaginal bleeding, abnormal vaginal discharge Allergies and current medication updated:Yes EXAM: BP 122/84 Pulse 82 Resp 12 Wt 218 lb (98.9kg) SpO2 96% LMP 02/05/2024 GENERAL: pleasant, female in no apparent distress HEENT: Normocephalic, atraumatic, mucus membranes moist, and no lesions CHEST: Normal inspiratory effort PELVIC: external genitalia normal, normal Bartholin's glands, urethra, [place]'s glands, no vulvar lesions, no cervical lesions, [...] mg table (more content not included)... Normal [facility] CNOVon 03-04-2024 CNOV Office Visit (OBGYWM ) KARMA KAPOOR ([id number]) 1970 F Date Time Provider Department 03/04/24 8:15 AM ANDRE WILD During your visit today, we recorded the following information about you: Pulse Respiration Blood pressure Weight 88/minute 14/minute 140/84 101.2 kg Last Period 02/05/24 Andre Wild APRN.CNP 03/04/2024 8:38 AM Signed Cigar Head Pegger offered: Patient declines. Karma Kapoor is a [...] L3 SAB0 IAB0 Ectopic0 Multiple0 Live Births3 [employer] Life Sales History LMP: 12/22/2023 (Exact Date), Having periods Age at Menarche: Age at First : Age at Menopause: [employer] Life Sales History Comments: Sexual Activity: Yes; Male Contraception: [...] Assessed 12/29/2023 REVIEW OF SYSTEMS Expanded ROS: CLEARANCE COORDINATOR: + vulvar cyst Allergies and current medication updated:Yes EXAM: BP 140/84 Pulse 88 Resp 14 Wt 223 lb (101.2kg) SpO2 97% LMP 02/05/2024 GENERAL: pleasant, female in no apparent distress HEENT: Normocephalic, atraumatic, mucus membranes moist, and no lesions CHEST: Normal inspiratory effort PELVIC: external genitalia normal, normal Bartholin's glands, urethra, [place]'s glands, + 0.5 cm pink smooth, symmetrical [...] - lisinop (more content not included)... Normal [facility] Basophil percentageon 2021 Bilirubin [Mass/Vol] 0.40 mg/dL 0.20-1.00 [facility] Work Phone: Comment on above: For patients on eltr ombopag therapy, use of [employer] [place] TBIL is not recommended. Chloride [Moles/Vol] 100 mmol/L 98-107 [facility] Work Phone: Cholesterol [Mass/Vol] 254 mg/dL <200 [facility] Work Phone: Comment on above: <200 mg/dL Desirable 200-240 mg/dL Borderline >240 mg/dL High Risk Glucose [Mass/Vol] 90 mg/dL 74-106 [facility] Work Phone: Potassium [Moles/Vol] 4.0 mmol/L 3.5-5.1 [facility] Work Phone: Protein [Mass/Vol] 7.3 g/dL 6.4-8.2 [facility] Work Phone: Sodium [Moles/Vol] 138 mmol/L 136-145 [facility] Work Phone: Triglyceride [Mass/Vol] 176 mg/dL <199 [facility] Work Phone: Comment on above: The drugs N-Acetylcy steine and Metamizole may falsely depress this assay.Serum Triglycerides Reference Interval Normal <150 mg/dL Borderline high 150 - 199 mg/dL High 200 - 499 mg/dL Very High > or = 500 mg/dL Laboratory - Chemistry and C hemistry - challengeon 03-21-2022 ALP [Catalytic activity/Vol] 64 U/L 45-117 [facility] Work Phone: ALT [Catalytic activity/Vol] 40 U/L 13-56 [facility] Work Phone: CO2 [Moles/Vol] 27.0 mmol/L 21.0-32.0 [facility] Work Phone: Globulin (S) [Mass/Vol] 3.6 g/dL 2.2-4.2 [facility] Work Phone: Urea nitrogen/Creatinine [Mass ratio] 9.7 mg/mg 10-20 [facility] Work Phone: No Panel Informationon 03-21 Estimated GFR (MDRD) Amer 82 mL/min >60 [facility] Work Phone: Comment on above: GFR Calc Estimated GFR (MDRD) Non-Af Amer 68 mL/min >60 [facility] Work Phone: Comment on above: Non- GFR Calc Thyroid Stimulating Hormone (TSH) 2.03 uIU/mL 0.358-3.74 [facility] Work Phone: Vitamin D 25-Hydroxy 59.8 ng/mL [facility] Work Phone: Comment on above: Vitamin D 25(OH) Sta tus Range Deficiency <20 ng/mL (50nmol/L) Insufficiency 20 - 30 ng/mL (50 - 75 nmol/L) Sufficiency 30 - 100 ng/mL (75 - 250 nmol/L) Toxicity >100 ng/mL (>250 nmol/L) Serum or plasma albumin anupama urement (mass/volume)on 03-21-2022 Albumin [Mass/Vol] 3.7 g/dL 3.2-5.0 [facility] Work Phone: Serum or plasma albumin/glob ulin mass ratioon 03-21-2022 Albumin/Globulin [Mass ratio] 1.0 {ratio} 0.9-2.4 [facility] Work Phone: Serum or plasma calcium anupama urement (mass/volume)on 03-21-2022 Calcium [Mass/Vol] 8.6 mg/dL 8.5-10.1 [facility] Work Phone: Serum or plasma cholesterol in HDL measurement (mass/volume)on 03-21-2022 Cholesterol in HDL [Mass/Vol] 45 mg/dL >40 [facility] Work Phone: Comment on above: The drugs N-Acetylcy steine and Metamizole may falsely depress this assay. Reference Range HDL <40 mg/dL Low HDL Cholesterol HDL >or= 60 mg/dL High HDL Cholesterol Serum or plasma cholesterol in VLDL measurement (mass/volume)on 03-21-2022 Cholesterol in VLDL [Mass/Vol] 35 mg/dL 5-40 [facility] Work Phone: Serum or plasma creatinine m easurement (mass/volume)on 03-21-2022 Creatinine [Mass/Vol] 0.93 mg/dL 0.55-1.02 [facility] Work Phone: Comment on above: The validity of the calculated GFR & GFRAA in patients over 70 years has not been determined. Clinical correlation is essential. Serum or plasma low density lipoprotein (LDL) cholesterol measurement (mass/volume)on 03-21-2022 Cholesterol in LDL [Mass/Vol] 174 mg/dL 0-130 [facility] Work Phone: Serum or plasma urea nitroge n measurement (mass/volume)on 03-21-2022 Urea nitrogen [Mass/Vol] 9 mg/dL -18 [facility] Work Phone: Thin prep Papanicolaou smear with manual screeningon 03-21-2022 Thin prep Papanicolaou smear with manual screening 25 U/L 15-37 [facility] Work Phone: Thin prep Papanicolaou smear with manual screening 11 5-15 [facility] Work Phone: Vital Signs Date Time Vital Sign Value Performing Clinician Carmellai yamil 01-10-2025 13:43-0400 Body height 165.7 cm Georgia Lucero MD Work Phone: [facility] 01-10-2025 13:43-0400 Body mass index (BMI) [Ratio] 37.16 kg/m2 Georgia Lucero MD Work Phone: [facility] 01-10-2025 13:43-0400 Body weight 102.06 kg Georgia Lucero MD Work Phone: [facility] 01-10-2025 13:43-0400 Diastolic blood pressure 82 mm[Hg] Georgia Lucero MD Work Phone: [facility] 01-10-2025 13:43-0400 Systolic blood pressure 128 mm[Hg] Georgia Lucero MD Work Phone: [facility] 04-04-2024 10:42-0400 Body mass index (BMI) [Ratio] 36.84 kg/m2 Andre Haury PAIN MEDICINE PHYSICIAN.CURTAIN CUTTER Work Phone: [facility] 04-04-2024 10:42-0400 Body weight 98.88 kg Andre Haury PAIN MEDICINE PHYSICIAN.CURTAIN CUTTER Work Phone: [facility] 04-04-2024 10:42-0400 Diastolic blood pressure 84 mm[Hg] Andre Haury PAIN MEDICINE PHYSICIAN.CURTAIN CUTTER Work Phone: [facility] 04-04-2024 10:42-0400 Heart rate 82 /min Andre Haury PAIN MEDICINE PHYSICIAN.CURTAIN CUTTER Work Phone: [facility] 04-04-2024 10:42-0400 Respiratory rate 12 /min Andre Haury PAIN MEDICINE PHYSICIAN.CURTAIN CUTTER Work Phone: [facility] 04-04-2024 10:42-0400 SaO2% (BldA) [Mass fraction] 96 % Andre Haury PAIN MEDICINE PHYSICIAN.CURTAIN CUTTER Work Phone: [facility] 04-04-2024 10:42-0400 Systolic blood pressure 122 mm[Hg] Andre Haury PAIN MEDICINE PHYSICIAN.CURTAIN CUTTER Work Phone: [facility] 03-04-2024 08:15-0400 Body mass index (BMI) [Ratio] 37.69 kg/m2 Andre Haury PAIN MEDICINE PHYSICIAN.CURTAIN CUTTER Work Phone: [facility] 03-04-2024 08:15-0400 Body weight 101.15 kg Andre Haury PAIN MEDICINE PHYSICIAN.CURTAIN CUTTER Work Phone: [facility] 03-04-2024 08:15-0400 Diastolic blood pressure 84 mm[Hg] Andre Haury PAIN MEDICINE PHYSICIAN.CURTAIN CUTTER Work Phone: [facility] 03-04-2024 08:15-0400 Heart rate 88 /min Andre Haury PAIN MEDICINE PHYSICIAN.CURTAIN CUTTER Work Phone: [facility] 03-04-2024 08:15-0400 Respiratory rate 14 /min Andre Haury PAIN MEDICINE PHYSICIAN.CURTAIN CUTTER Work Phone: [facility] 03-04-2024 08:15-0400 SaO2% (BldA) [Mass fraction] 97 % Andre Junito MANN.CURTAIN CUTTER Work Phone: [facility] 03-04-2024 08:15-0400 Systolic blood pressure 140 mm[Hg] Andrecalixto Hammerjm MANN.CURTAIN CUTTER Work Phone: [facility] 12-29-2023 11:08-0400 Body height 163.8 cm Georgia Lucero MD Work Phone: [facility] 12-29-2023 11:08-0400 Body mass index (BMI) [Ratio] 37.01 kg/m2 Georgia Lucero MD Work Phone: [facility] 12-29-2023 11:08-0400 Body weight 99.34 kg Georgia Lucero MD Work Phone: [facility] 12-29-2023 11:08-0400 Diastolic blood pressure 66 mm[Hg] Georgia Lucero MD Work Phone: [facility] 12-29-2023 11:08-0400 Systolic blood pressure 128 mm[Hg] Georgia Lucero MD Work Phone: [facility] 04-05-2022 14:22-0400 Body height 163.8 cm Georgia Lucero MD Work Phone: [facility] 04-05-2022 14:22-0400 Body weight 97.07 kg Georgia Lucero MD Work Phone: [facility] 04-05-2022 14:22-0400 Diastolic blood pressure 90 mm[Hg] Georgia Lucero MD Work Phone: [facility] 04-05-2022 14:22-0400 Systolic blood pressure 162 mm[Hg] Georgia Lucero MD Work Phone: [facility] Encounters Encounter Date Encounter Type Care Provider Facility Start: 04-12-2025 ambulatory Vickey [place] lity:[facility] Start: 04-08-2025 ambulatory Vickey [place] lity:[facility] Start: 03-17-2025 End: 03-17-2025 ambulatory Kian L [...] 01-10-2025 End: 01-10-2025 ambulatory VICKEY DEL TORO Facility:[facility] Start: 01-10-2025 Encounter for gynecological examination (general) (routine) without abnormal [facility] Start: 01-10-2025 End: 01-10-2025 Patient encounter status Georgia Lucero MD Work Phone: [facility] Start: 01-10-2025 End: 01-10-2025 Subsequent hospital visit by physician Screen Mammo [facility] Mamm[facility] Comment on above: Encounter for gyneco logical examination (general) (routine) without abnormal findings [Z01.419] Start: 10-30-2024 End: 10-30-2024 ambulatory Kian L Seese Facility:[facility] Start: 09-03-2024 End: 09-03-2024 ambulatory Kian L Seese Facility:[facility] Start: 07-29-2024 End: 07-29-2024 ambulatory Kian L Seese Facility:[facility] Start: 06-18-2024 End: 06-18-2024 [facility]ulatory [facility] Start: 06-04-2024 End: 06-04-2024 [facility] Start: 04-30-2024 End: 04-30-2024 ambulatory Kian L Seese Facility:[facility] Start: 04-17-2024 End: 04-17-2024 Patient encounter status [address] Work Phone: Start: 04-17-2024 End: 04-17-2024 Subsequent hospital visit by physician [address] Comment on above: Hyperlipidemia, unsp ecified; Encounter for general adult medical examination without abnormal findings Start: 04-17-2024 End: 04-17-2024 [facility] Start: 04-17-2024 End: 04-17-2024 Encounter for general adult medical examination without abnormal findings [facility] Start: 04-04-2024 End: 04-04-2024 ambulatory [facility] Facility:[facility] Start: 04-04-2024 End: 04-04-2024 Patient encounter procedure Andre Junito MANN.CURTAIN CUTTER Work Phone: OB/Gynecology Comment on above: Vulvar cyst (Primary Dx) Start: 03-04-2024 End: 03-04-2024 ambulatory ANDRE WILD Facility:[facility] Start: 03-04-2024 End: 03-04-2024 Patient encounter procedure Andre Wild PAIN MEDICINE PHYSICIAN.CURTAIN CUTTER Work Phone: OB/Gynecology Comment on above: Vulvar cyst (Primary Dx) Start: 01-01-2024 Documentation procedure Mammog shaye Coordinator [facility] Department Start: 01-01-2024 Letter encounter Mammography Coordinator [facility] Department Start: 12-29-2023 ambulatory Georgia paz MD Work Phone: OB/Gynecology Comment on above: Work excuse Start: 12-29-2023 Telephone encounter Georgia Lucero MD Work Phone: [facility] [place] Comment on above: Patient Question Start: 12-29-2023 End: 12-29-2023 Patient encounter status [facility] Start: 12-29-2023 End: 12-29-2023 Subsequent hospital visit by physician Screen Mammo [facility] Mammogram Start: 12-29-2023 End: 12-29-2023 Patient encounter procedure Georgia Lucero MD Work Phone: OB/Gynecology Comment on above: Encounter for gyneco logical examination (general) (routine) without abnormal findings (Primary Dx); Encounter for screening for human papillomavirus (HPV); Pap smear for cervical cancer screening; Encounter for screening mammogram for breast cancer Start: 12-29-2023 End: 12-29-2023 Patient encounter status Georgia Lucero MD Work Phone: [facility] Start: 11-14-2023 Telephone encounter Georgia Lucero MD Work Phone: OB/Gynecology Comment on above: Appointment Start: 10-24-2022 Documentation procedure Mammog shaye Coordinator [facility] Start: 10-24-2022 Letter encounter Mammography Coordinator [facility] Department Start: 04-05-2022 End: 04-05-2022 Patient encounter procedure Georgia Lucero MD Work Phone: OB/Gynecology Comment on above: Encounter for gyneco logical examination (general) (routine) without abnormal findings (Primary Dx); Encounter for screening mammogram for breast cancer; Obesity, Class II, BMI 35-39.9 Start: 04-05-2022 End: 04-05-2022 Patient encounter status Georgia Lucero MD Work Phone: OB/Gynecology Start: 03-21-2022 End: 03-21-[address] [facility] Start: 12-15-2021 End: 12-15-[address] [facility] Start: 07-29-2009 End: 11-20-2009 Female genitalia finding Georgia Lucero MD Work Phone: [facility] Start: 07-29-2009 End: 11-20-2009 Patient encounter status Georgia Lucero MD Work Phone: [facility] Procedures Date Procedure Procedure Detail Performing Clinician [...] section Previous delivery, antepartum condition or complication Georgai Lucero MD Work Phone: H/O: section History of C-sectio n Plan of Treatment Date Care Activity Detail Author Start: 08-05-2029 DTaP/Tdap/Td Vaccine s (2 - Td or Tdap) DTaP/Tdap/Td Vaccines (2 - Td or Tdap) [facility] Start: 08-05-2029 Urine microalbumin profile DTaP,Tdap,Td Vaccine (2 - Td or Tdap) [facility] Start: 01-02-2029 Screening for malign ant neoplasm of colon [facility] Start: 12-28-2028 Screening for malign ant neoplasm of cervix Cervical Cancer Screening [facility] Start: 01-16-2026 End: 01-16-2026 Patient encounter procedure Mammogram Comment on above: Encounter for gyneco logical examination (general) (routine) without abnormal findings [Z01.419]; Encounter for screening mammogram for breast cancer [Z12.31] Annual Start: 01-10-2026 Screening for malign ant neoplasm of breast Mammogram Screening [facility] Start: 01-10-2025 End: 01-10-2025 Patient encounter procedure OB/Gynecology Comment on above: annual Encounter for screen ing mammogram for breast cancer [Z12.31] Start: 12-28-2024 Screening for malign ant neoplasm of breast [facility] Start: 09-24-2024 HPV TESTING HPV TESTING [facility] Start: 09-24-2024 PAP TESTING PAP TESTING [facility] Start: 09-24-2024 Screening for malign ant neoplasm of cervix [facility] Start: 05-05-2024 Covid-19 Vaccine () Covid-19 Vaccine () [facility] Start: 05-05-2024 Influenza vaccination Influenza Vacc ine (#1) [facility] Start: 04-04-2024 End: 04-04-2024 Patient encounter procedure 04/04/2024 10:45 AM EDT Office Visit OB/Gynecology [address] [place] [address] Andre Wild, JOHNATHAN.CURTAIN CUTTER [address] [place] [address] Follow up OB/Gynecology Comment on above: Follow up Start: 04-01-2024 Shingrix Vaccine (2 of 2) Shingrix Vaccine (2 of 2) [facility] Start: 04-01-2024 Zoster Vaccines (2 o f 2) Zoster Vaccines (2 of 2) [facility] Start: 11-03-2023 Screening for malign ant neoplasm of colon [facility] Start: 10-21-2023 Mammography MAMMOGRAM [facility] Start: 10-21-2023 Screening for malign ant neoplasm of breast Mammogram Screening [facility] Start: 05-05-2023 Covid-19 Vaccine ( season) Covid-19 Vaccine ( season) [facility] Start: 05-05-2023 Influenza vaccination Influenza Vacc ine (#1) [facility] Start: 11-19-2022 Mammography MAMMOGRAM [facility] Start: 06-10-2022 COVID-19 VACCINE (4 - Booster for Moderna series) COVID-19 VACCINE (4 - Booster for Moderna series) [facility] Start: 05-05-2022 Influenza vaccination INFLUENZA (#1) [facility] Start: 04-05-2022 COVID-19 VACCINE (4 - Booster for Moderna series) COVID-19 VACCINE (4 - Booster for Moderna series) [facility] Start: 2020 Pneumococcal Vaccine : 50+ (1 of 1 - PCV) Pneumococcal Vaccine: 50+ (1 of 1 - PCV) [facility] Start: 2020 SHINGRIX VACCINE (1 of 2) SHINGRIX VACCINE (1 of 2) [facility] Start: 09-11-2017 Lipid panel Lipid Screening [facility] Start: 09-11-2017 LIPID SCREEN LIPID SCREEN [facility] Start: 12-25-2015 COLOGUARD (FIT-DNA) COLOGUARD (FIT-D NA) [facility] Start: 12-25-2015 Colonoscopy COLONOSCOPY [facility] Start: 12-25-2015 COLORECTAL CANCER SCREENING COLORECTAL CANCER SCREENING [facility] Start: 12-25-[address] COLONOGRAPHY [facility] Start: 12-25-2015 DIABETES SCREEN [facility]EN [facility] Start: 12-25-2015 Diabetes Screening Diabetes Screenin g [facility] Start: 12-25-2015 FECAL OCCULT BLOOD FECAL OCCULT BLOO D [facility] Start: 12-25-2015 Screening for malign ant neoplasm of colon [facility] Start: 12-25-2015 SIGMOIDOSCOPY SIGMOIDOSCOPY [facility] Start: 03-20-2012 Urine microalbumin profile DTAP,TDAP,TD (1 - Tdap) [facility] Start: 08-05-2009 MMR Vaccines (1 of 1 - Standard series) MMR Vaccines (1 of 1 - Standard series) [facility] Start: 12-25-1991 Screening for malign ant neoplasm of cervix [facility] Start: 1989 Hepatitis B Vaccine (1 of 3 - 19+ 3-dose series) Hepatitis B Vaccine (1 of 3 - 19+ 3-dose series) [facility] Start: 1989 Hepatitis B Vaccines (1 of 3 - 19+ 3-dose series) Hepatitis B Vaccines (1 of 3 - 19+ 3-dose series) [facility] Start: 1988 HEPATITIS C SCREENING HEPATITIS C [facility] Start: 1988 Hepatitis C screening Hepatitis C [facility] Start: 1988 HIV SCREENING HIV SCREENING [facility] Start: 1988 HIV screening HIV Screening [facility] Start: 1970 HEPATITIS B (1 of 3 - 3-dose series) HEPATITIS B (1 of 3 - 3-dose series) [facility] Start: 1970 HIV screening HIV Screening [facility] Start: 1970 Lipid panel Lipid Panel [facility] Start: 1970 Screening for malign ant neoplasm of colon [facility] Start: 1970 Yearly Adult Physical Yearly Adult P hysical [facility] End: 04-17-2024 CT for calcium scoring WO contrast and CTA W contrast IV Heart and coronary arteries [facility] Service Area Work Phone: Comment on above: Once for 1 Occurrenc es starting 04/17/2024 until 04/17/2024 End: 01-27-2025 DBT Breast - bilateral screening [facility] Routine Encounter for gynecological examination (general) (routine) without abnormal findings Encounter for screening mammogram for breast cancer 1 Occurrences starting 12/29/2023 until 01/27/2025 [facility] Work Phone: Comment on above: 1 Occurrences starti ng 12/29/2023 until 01/27/2025 End: 02-09-2026 DBT Breast - bilateral screening [facility] SCREENING [facility] Routine Encounter for gynecological examination (general) (routine) without abnormal findings Encounter for screening mammogram for breast cancer 1 Occurrences starting 01/10/2025 until 02/09/2026 [facility] Work Phone: Comment on above: 1 Occurrences starti ng 01/10/2025 until 02/09/2026 DBT Breast - bilater al screening [facility] SCREEN[facility] Routine Encounter for gynecological examination (general) (routine) without abnormal findings Encounter for screening mammogram for breast cancer 01/10/2025 2:42 PM EDT [facility] Work Phone: End: 12-29-2023 MG Breast Screening [facility] Work Phone: Comment on above: ONCE for 1 Occurrenc es starting 12/29/2023 until 12/29/2023 PAP TEST PAP TEST Lab Rou rex Encounter for gynecological examination (general) (routine) without abnormal findings Encounter for screening for human papillomavirus (HPV) Pap smear for cervical cancer screening 12/29/2023 11:47 AM EDT [facility] End: 05-05-2023 Screening mammography bi 2-view breast inc cad [facility] SCREENING Radiology Routine Encounter for gynecological examination (general) (routine) without abnormal findings Encounter for screening mammogram for breast cancer 1 Occurrences starting 04/05/2022 until 05/05/2023 [facility] Work Phone: Comment on above: 1 Occurrences starti ng 04/05/2022 until 05/05/2023 [facility] Immunizations Immunization Date Immunization Notes Care Provider Fa cility 06-02-2023 influenza, injectabl e, quadrivalent, preservative free Georgia Lucero MD Work Phone: [facility] 06-02-2023 influenza virus vaccine, unspecified formulation Andre Wild CURTAIN CUTTER Work Phone: [facility] 06-03-2022 influenza, injectabl e, quadrivalent, preservative free Georgia Lucero MD Work Phone: [facility] 06-03-2022 influenza virus vaccine, unspecified formulation Georgia Lucero MD Work Phone: [facility] 07-02-2021 influenza, injectabl e, quadrivalent, preservative free Georgia Lucero MD Work Phone: [facility] 12-02-2020 COVID-19 vaccine, fu ll dose (MODERNA) Georgia Lucero MD Work Phone: [facility] 10-30-2020 COVID-19 vaccine, fu ll dose (MODERNA) Georgia Lucero MD Work Phone: [facility] 05-30-2020 influenza, injectabl e, quadrivalent, contains preservmalorie Lucero MD Work Phone: [facility] 08-05-2019 tetanus toxoid, redu edilma diphtheria toxoid, and acellular pertussis vaccine, adsorbed Georgia Lucero MD Work Phone: [facility] 07-05-2019 influenza, injectabl e, quadrivalent, contains preservmalorie Lucero MD Work Phone: [facility] 06-02-2018 influenza, injectabl e, quadrivalent, contains preservmalorie Lucero MD Work Phone: [facility] 06-21-2017 influenza, seasonal, injectable Georgia Lucero MD Work Phone: [facility] 06-20-2016 influenza, seasonal, injectable Georgia Lucero MD Work Phone: [facility] 06-06-2015 influenza, injectabl e, quadrivalent, contains preservative Georgia Lucero MD Work Phone: [facility] Work Phone: 06-19-2014 influenza, seasonal, injectable Georgia Lucero MD Work Phone: [facility] Work Phone: 06-27-2013 influenza, seasonal, injectable Georgia Lucero MD Work Phone: [facility] 06-02-2012 influenza virus vaccine, unspecified formulation Georgia Lucero MD Work Phone: [facility] Work Phone: 03-19-2012 tetanus and diphther ia toxoids, adsorbed, preservative free, for adult use (2 Lf of tetanus toxoid and 2 Lf of diphtheria toxoid) Georgia Lucero MD Work Phone: [facility] 06-04-2011 influenza virus vaccine, unspecified formulation Georgia Lucero MD Work Phone: [facility] Work Phone: 06-24-2010 influenza virus vaccine, unspecified formulation Georgia Lucero MD Work Phone: [facility] Work Phone: 07-08-2009 novel [id number], preservative-free, injectable Georgia Lucero MD Work Phone: [facility] 06-08-2009 influenza virus vaccine, unspecified formulation Georgia Lucero MD Work Phone: [facility] Work Phone: 07-09-2008 influenza virus vaccine, unspecified formulation Georgia Lucero MD Work Phone: [facility] Work Phone: 09-11-2007 tuberculin skin test ; purified protein derivative solution, intradermal Georgia Lucero MD Work Phone: [facility] Payers Date Payer Category Payer Self-pay [id number] 2021 Private Health Insurance MMO SUP [employer] PPO [id number] 2021 Unknown MMO MMO [employer]US [id number] 2021-Present [phone] [address] [place] [address] PPO [id number] 2021 Unknown [id number] 2021 Unknown [id number] 1970 Unknown [id number] Private Health Insurance SELF PAY INSURAN CE [id number] Unknown SELF PAY INSURANCE [id number] Unknown [id number] Unknown [id number] Unknown [id number] Unknown [id number] Unknown [id number] Unknown [id number] Unknown [id number] Unknown [id number] Unknown [id number] Unknown [id number] Social History Date Type Detail Facility Start: 11-27-2020 [facility] Work Phone: Start: 11-27-[address] [facility] Work Phone: Start: 1970 Sex Assigned At Female W [facility] Work Phone: Start: 01-27-2012 [facility] tobacco [facility] Start: 04-05-2022 End: 12-29-2023 Alcohol intake Current non-drinker of alcohol (finding) [facility] Start: 1970 Sex Assigned At Not on file [facility] Start: 03-26-2022 End: 04-17-2024 Exposure to SARS-CoV-2 (event) Not sure [facility] Start: 01-27-2012 Tobacco use and exposure Smokeless tobacco non-user [facility] Work Phone: Start: 08-09-2020 End: 04-05-2022 History of Social function [facility] Start: 08-09-2020 End: 04-05-2022 Tobacco use panel [facility] National Score (1-100), lower number is lower risk Not on file [facility] Start: 03-04-2024 End: 01-10-2025 Alcohol intake Ex-drinker (finding) [facility] Functional Status Date Assessment Result Facility 04-04-2014 Are you deaf, or do you have serious difficulty hearing No 04/04/2014 1:12 PM Sonya Bruce Ma No [facility] 04-04-2014 Are you blind, or do you have serious difficulty seeing, even when wearing glasses No 04/04/2014 1:12 PM Sonya Bruce Ma No [facility] 04-04-2014 Do you have serious difficulty walking or climbing stairs No 04/04/2014 1:12 PM EDT Mena DacostaSonya [facility] 04-04-2014 Do you have difficul ty dressing or bathing No 04/04/2014 1:12 PM EDT Mena DacostaSonya [facility] 04-04-2014 Because of a physica l, mental, or emotional condition, do you have difficulty doing errands alone such as visiting a physician's office or shopping No 04/04/2014 1:12 PM EDT Mena DacostaSonya [facility] Mental Status Date Assessment Result Facility 04-04-2014 Because of a physica l, mental, or emotional condition, do you have serious difficulty concentrating, remembering, or making decisions No 04/04/2014 1:12 PM EDT Mena DacostaSonya [facility] Clinical Notes 07-29-2009 to 01-10-2025 Nora Stephens [...] PATIENT PRESENTS WITH AN IMPLANTABLE OR ATTACHED ENGINE INSPECTOR: No RADIOLOGY DEPARTMENT: Mammography PERIPHERAL IV DATA: Not applicable SIGNED BY: RT Katie(R) January 10, 2025 2:44 PM documented in this encounter [facility] 01-10-2025 Note HNO ID: [id number] Author: NORA STEPHENS RT(R) Service: Radiology Author Type: Sba Business Development Officer Type: Progress Notes Filed: 01/10/2025 14:45 Note [...] PATIENT PRESENTS WITH AN IMPLANTABLE OR ATTACHED ENGINE INSPECTOR: No RADIOLOGY DEPARTMENT: Mammography PERIPHERAL IV DATA: Not applicable SIGNED BY: RT Katie(R) January 10, 2025 2:44 PM [facility] 01-10-2025 Note HNO ID: [id number] Author: GEORGIA LUCERO MD Service: ? Author [...] Living3 SAB0 IAB0 Ectopic0 Multiple0 Live Births3 [employer] History LMP: 11/02/2024, Having periods Age at Menarche: 12 Age at First : Age at Menopause: [employer] History Comments: Sexual Activity: Yes; Male Contraception: [...] discussed with the Patient or Patient's Authorized Foster Care Case Manager. As applicable, any other physician, advance practice provider, medical student, or other health professional student that will be observing or involved in the sensitive examination for educational or training purposes was discussed with the Patient or Authorized Foster Care Case Manager. The Patient or Authorized Foster Care Case Manager has agreed to proceed with the sensitive [...] external genitalia normal, normal Bartholin's glands, urethra, [place]'s glands, no vulvar lesions, no cervical lesions, [...] or sooner as needed Georgia Lucero MD [facility] 01-10-2025 History of Presen t [...] Living3 SAB0 IAB0 Ectopic0 Multiple0 Live Births3 [employer] History LMP: 11/02/2024, Having periods Age at Menarche: 12 Age at First : Age at Menopause: [employer] History Comments: Sexual Activity: Yes; Male Contraception: [...] discussed with the Patient or Patient's Authorized Foster Care Case Manager. As applicable, any other physician, advance practice provider, medical student, or other health professional student that will be observing or involved in the sensitive examination for educational or training purposes was discussed with the Patient or Authorized Foster Care Case Manager. The Patient or Authorized Foster Care Case Manager has agreed to proceed with the sensitive [...] external genitalia normal, normal Bartholin's glands, urethra, [place]'s glands, no vulvar lesions, no cervical lesions, [...] one year or sooner as needed Georgia Luecro MD documented in this encounter [facility] 04-04-2024 Note HNO ID: [id number] Author: ANDRE WILD APRN.CURTAIN CUTTER Service: ? Author Type: Nurse Practitioner Type: Progress Notes Filed: 04/04/2024 11:02 Note Text: Cigar Head Pegger offered: Patient declines. Karma Kapoor is a [...] L3 SAB0 IAB0 Ectopic0 Multiple0 Live Births3 [employer] History LMP: 02/05/2024 (Approximate), Having periods Age at Menarche: Age at First : Age at Menopause: [employer] History Comments: Sexual Activity: Yes; Male Contraception: [...] Assessed 03/04/2024 REVIEW OF SYSTEMS Expanded ROS: CLEARANCE COORDINATOR: Negative for abnormal vaginal bleeding, abnormal vaginal discharge Allergies and current medication updated:Yes EXAM: BP 122/84 Pulse 82 Resp 12 Wt 218 lb (98.9kg) SpO2 96% LMP 02/05/2024 GENERAL: pleasant, female in no apparent distress HEENT: Normocephalic, atraumatic, mucus membranes moist, and no lesions CHEST: Normal inspiratory effort PELVIC: external genitalia normal, normal Bartholin's glands, urethra, [place]'s glands, no vulvar lesions, no cervical lesions, [...] December or sooner as needed. Andre Wild APRN.CURTAIN CUTTER Medical Decision Making: Problems: Minimal: Self-limited or minor problem Medical Decision Making Level: 2 - Straightforward [facility] 04-04-2024 History of Presen t illness Narrative Cigar Head Pegger offered: Patient declines. Karma Kapoor is a [...] L3 SAB0 IAB0 Ectopic0 Multiple0 Live Births3 [employer] History LMP: 02/05/2024 (Approximate), Having periods Age at Menarche: Age at First : Age at Menopause: [employer] History Comments: Sexual Activity: Yes; Male Contraception: [...] Assessed 03/04/2024 REVIEW OF SYSTEMS Expanded ROS: CLEARANCE COORDINATOR: Negative for abnormal vaginal bleeding, abnormal vaginal discharge Allergies and current medication updated:Yes EXAM: BP 122/84 Pulse 82 Resp 12 Wt 218 lb (98.9kg) SpO2 96% LMP 02/05/2024 GENERAL: pleasant, female in no apparent distress HEENT: Normocephalic, atraumatic, mucus membranes moist, and no lesions CHEST: Normal inspiratory effort PELVIC: external genitalia normal, normal Bartholin's glands, urethra, [place]'s glands, no vulvar lesions, no cervical lesions, [...] 2 - Straightforward documented in this encounter [facility] 03-04-2024 Instructions Andre Wild APRN.CNP - 03/04/2024 8:38 AM EDT Keep area clean and dry. Please follow up in 4 weeks or sooner if symptoms resurface. documented in this encounter [facility] 03-04-2024 Note HNO ID: [id number] Author: ANDRE WILD APRN.CNP Service: ? Author Type: Nurse Practitioner Type: Progress Notes Filed: 03/04/2024 08:38 Note Text: Cigar Head Pegger offered: Patient declines. Karma Kapoor is a [...] L3 SAB0 IAB0 Ectopic0 Multiple0 Live Births3 [employer] History LMP: 12/22/2023 (Exact Date), Having periods Age at Menarche: Age at First : Age at Menopause: [employer] History Comments: Sexual Activity: Yes; Male Contraception: [...] Assessed 12/29/2023 REVIEW OF SYSTEMS Expanded ROS: CLEARANCE COORDINATOR: + vulvar cyst Allergies and current medication updated:Yes EXAM: BP 140/84 Pulse 88 Resp 14 Wt 223 lb (101.2kg) SpO2 97% LMP 02/05/2024 GENERAL: pleasant, female in no apparent distress HEENT: Normocephalic, atraumatic, mucus membranes moist, and no lesions CHEST: Normal inspiratory effort PELVIC: external genitalia normal, normal Bartholin's glands, urethra, [place]'s glands, + 0.5 cm pink smooth, symmetrical [...] size, draining, or other concerns. Andre Wild APRN.CURTAIN CUTTER Medical Decision Making: Problems: Minimal: Self-limited or minor problem Risk: Minimal: Minimal risk from testing/treatment Medical Decision Making Level: 2 - Straightforward [facility] 03-04-2024 History of Presen t illness Narrative Cigar Head Pegger offered: Patient declines. Karma Kapoor is a [...] L3 SAB0 IAB0 Ectopic0 Multiple0 Live Births3 [employer] History LMP: 12/22/2023 (Exact Date), Having periods Age at Menarche: Age at First : Age at Menopause: [employer] History Comments: Sexual Activity: Yes; Male Contraception: [...] Assessed 12/29/2023 REVIEW OF SYSTEMS Expanded ROS: CLEARANCE COORDINATOR: + vulvar cyst Allergies and current medication updated:Yes EXAM: BP 140/84 Pulse 88 Resp 14 Wt 223 lb (101.2kg) SpO2 97% LMP 02/05/2024 GENERAL: pleasant, female in no apparent distress HEENT: Normocephalic, atraumatic, mucus membranes moist, and no lesions CHEST: Normal inspiratory effort PELVIC: external genitalia normal, normal Bartholin's glands, urethra, [place]'s glands, + 0.5 cm pink smooth, symmetrical [...] 2 - Straightforward documented in this encounter [facility] 01-01-2024 Note Formatting of this n ote might be different from the original. January 01, 2024 PID: [id number] Karma Kapoor [address] [place] [address] Dear Ms. Kapoor, We are pleased to [...] report will be kept on file at [facility] as part of your permanent medical record and are available for your continuing care. Thank you for allowing us to help in meeting your health care needs. Sincerely, Dr. Kwok Interpreting Radiologist [facility] (Normal over 40) [facility] 01-01-2024 Miscellaneous Notes January 01, 2024 PID: [id number] Karma Castanead [address] [place] [address] Dear Ms. Kapoor, We are pleased to [...] report will be kept on file at [facility] as part of your permanent medical record and are available for your continuing care. Thank you for allowing us to help in meeting your health care needs. Sincerely, Dr. Kwok Interpreting Radiologist [facility] (Normal over 40) documented in this encounter [facility] 12-29-2023 Telephone encounter Note See MashON message dated 12/29/2023. Erika Diaz RN [facility] 12-29-2023 Miscellaneous Notes See MashON message dated 12/29/2023. Erika Diaz RN Left message to call office. Does patient just need a letter stating she was seen in the office today for appointment or a letter excusing her from work? Erika Diaz RN Pt called in asking if Dr. Lucero can send her a work excuse letter for todays visit on her Sicubohart. Thank you documented in this encounter [facility] 12-29-2023 Telephone encounter Note Left message to call office. Does patient just need a letter stating she was seen in the office today for appointment or a letter excusing her from work? Erika Diaz RN [facility] 12-29-2023 Telephone encounter Note Pt called in asking if Dr. Lucero can send her a work excuse letter for todays visit on her mychart. Thank you [facility] 12-29-2023 History of Presen t illness Narrative [...] L3 SAB0 IAB0 Ectopic0 Multiple0 Live Births3 [employer] History LMP: 12/22/2023 (Exact Date), Having periods Age at Menarche: Age at First : Age at Menopause: [employer] History Comments: Sexual Activity: Yes; Male Contraception: [...] external genitalia normal, normal Bartholin's glands, urethra, [place]'s glands, no vulvar lesions, no cervical lesions, [...] Georgia Lucero MD documented in this encounter [facility] 11-17-2023 Miscellaneous Notes See MashON message from 11/16/23. Erika Diaz RN 2nd message left for patient to call the office or send Ukashhart message with preferred time. Nora Zuluaga, RN I called patient as I will likely need to be out the afternoon of December 28 for an appointment. I offered her to comein at 920 or 1110 that day and asked her to call or send Sicubohart message w/ preferred time. T jailny. RLR documented in this encounter [facility] 10-24-2022 Miscellaneous Notes October 25, 2022 PID: [id number] Karma Castaneda [address] [place] [address] Dear Ms. Kapoor, We are pleased to [...] report will be kept on file at [facility] as part of your permanent medical record and are available for your continuing care. Thank you for allowing us to help in meeting your health care needs. Sincerely, Dr. Peter Interpreting Radiologist [facility] (Normal over 40) documented in this encounter [facility] 04-05-2022 Miscellaneous Notes Addended by: GEORGIA LUCERO on: 04/05/2022 03:38 PM Modules accepted: Orders documented in this encounter [facility] 04-05-2022 History of Presen t illness Narrative Cigar Head Pegger offered: Patient declines. Karma is a 51 [...] L3 SAB0 IAB0 Ectopic0 Multiple0 Live Births3 [employer] History LMP: 02/09/2021 (Exact Date), Having periods Age at Menarche: Age at First : Age at Menopause: [employer] History Comments: Sexual Activity: Yes; Male Contraception: [...] external genitalia normal, normal Bartholin's glands, urethra, [place]'s glands, no vulvar lesions, no cervical lesions, [...] Georgia Lucero MD documented in this encounter [facility] 07-29-2009 History of Past i llness Narrative Problem Noted Date Resolved Date Routine general medical exam ination at a health care facility 07/29/2009 11/20/2009 Overview: 07/29/2009, establish care Gynecological examination 07/29/20092009 Overview: [facility], [facility] [place] Maternal age > 35, multigravida 05/06/2009 11/20/2009 Previous delivery, antepartum condition or complication 05/06/2009 11/20/2009 documented as of this encounter (statuses as of 04/05/2022) [facility]11-25-2009 History of Past illness Narrative* Problem Noted Date Resolved Date Routine general medical exam ination at a health care facility 07/29/2009 11/20/2009 Overview: 07/29/2009, establish care Gynecological examination 07/29/20092009 Overview: [facility], [facility] [place] Maternal age > 35, multigravida 05/06/2009 11/20/2009 Previous delivery, antepartum condition or complication 05/06/2009 11/20/2009 documented as of this encounter (statuses as of 10/26/2022) [facility] History of Past illness Narrative* Problem Noted Date Diagnosed Date Resolved Date Routine general medical exam ination at a health care facility 07/29/2009 11/20/2009 Overview: 07/29/2009, establish care Gynecological examination 07/29/2009 Overview: [facility], [facility] [place] Maternal age > 35, multigravida 05/06/2009 11/20/2009 Previous delivery, antepartum condition or complication 05/06/2009 11/20/2009 documented as of this encounter (statuses as of 11/17/2023) [facility]No assessment information [facility]WMer[facility] Work Phone: Evaluation note* Diagnosis Encounter for gynecological examination (general) (routine) without abnormal findings- Primary Encounter for screening mammogram for breast cancer Obesity, Class II, BMI 35-39.9 Obesity, unspecified [facility] Diagnosis Encounter for gynecological examination (general) (routine) without abnormal findings- Primary Encounter for screening for human papillomavirus (HPV) Special screening examination for human papillomavirus (HPV) Pap smear for cervical cancer screening Screening for malignant neoplasm of the cervix Encounter for screening mammogram for breast cancer [facility] Diagnosis Encounter for gynecological examination (general) (routine) without abnormal findings Encounter for screening mammogram for breast cancer [facility]* Diagnosis Vulvar cyst- Primary Other specified noninflammatory disorder of vulva and perineum [facility] Diagnosis Vulvar cyst- Primary Other specified noninflammatory disorder of vulva and perineum [facility]* Diagnosis Hyperlipidemia, unspecified Encounter for general adult medical examination without abnormal findings documented in this encounter [facility] Work Phone: Evaluation note* Diagnosis Encounter for gynecological examination (general) (routine) without abnormal findings- Primary Encounter for screening mammogram for breast cancer [facility] Diagnosis Encounter for gynecological examination (general) (routine) without abnormal findings Encounter for screening mammogram for breast cancer documented in this encounter [facility] for referral (narrative)* Diagnostic Procedure Only (Routine) - Authorized Specialty Diagnoses / Procedures Referred By Contac t Referred To Contact [facility] Diagnoses Encounter for gynecological examination (general) (routine) without abnormal findings Encounter for screening mammogram for breast cancer Procedures MARCOS SCREENING SCREENING MAMMOGRAPHY BI 2-VIEW BREAST INC Georgia Stone MD [address] [place] [address] [facility] [address] [address] Referral ID Status Reason Start Date Expiration Date Visits Requested Visits Authorized [id number] Authorized Auto-Generat ed Referral 04/05/2022 05/05/2023 1 1 [facility] for referral (narrative)* Diagnostic Procedure Only (Routine) - Authorized Specialty Diagnoses / Procedures Referred By Popeye t Referred To Contact [facility] Diagnoses Encounter for gynecological examination (general) (routine) without abnormal findings Encounter for screening mammogram for breast cancer Procedures MARCOS SCREENING W LA SCREENING DIGITAL BREAST TOMOSYNTHESIS BI SCREENING MAMMOGRAPHY BI 2-VIEW BREAST INC Georgia Stone MD [address] [place] [address] [facility] [address] [address] Referral ID Status Reason Start Date Expiration Date Visits Requested Visits Authorized [id number] Authorized Auto-Generat ed Referral 12/29/2023 01/27/2025 1 1 T [facility] for visit Narrative* Diagnostic Procedure Only (Routine) - Closed Specialty Diagnoses / Procedures Referred By Contac t Referred To Contact [facility] Diagnoses Encounter for gynecological examination (general) (routine) without abnormal findings Encounter for screening mammogram for breast cancer Procedures MARCOS SCREENING W LA SCREENING DIGITAL BREAST TOMOSYNTHESIS BI SCREENING MAMMOGRAPHY BI 2-VIEW BREAST INC Georgia Stone MD [address] [place] [address] [facility] [address] [place] [address] Referral ID Status Reason Start Date Expiration Date V isits Requested Visits Authorized [id number] Closed Auto-Generate d Referral 12/29/2023 01/27/2025 1 1 [facility] N[facility]* Diagnostic Procedure Only (Routine) - Closed Specialty Diagnoses / Procedures Referred By Contac t Referred To Contact [facility] Diagnoses Encounter for gynecological examination (general) (routine) without abnormal findings Encounter for screening mammogram for breast cancer Procedures MARCOS SCREENING W LA SCREENING DIGITAL BREAST TOMOSYNTHESIS BI SCREENING MAMMOGRAPHY BI 2-VIEW BREAST INC Georgia Stone MD [address] [place] [address] Phone: tel: fax: [facility] [address] [place] [address] Referral ID Status Reason Start Date Expiration Date V isits Requested Visits Authorized [id number] Closed Auto-Generate d Referral 12/29/2023 01/27/2025 1 1 [facility] Chief Complaint and Reason for Visit Chief Complaint DYSPHAGIA Family History No Family History Records Found Relationship Condition Age at Onset Recorded Date/T paige father Cardiac disease Unknown Hypertension Unknown mother Hypertension Unknown Cardiac disease Unknown Advance Directives No Advanced Directives Records Found Advance Directive Response Recorded Date/ Time Living Will No November 27, 2020 1:31pm Power of Center Mgr No November 27 1:31pm Summary Purpose Reason for Referral Specialty Diagnoses / Procedures Referred By Contac t Referred To Contact Radiology Diagnoses Hyperlipidemia, unspecified Encounter for general adult medical examination without abnormal findings Procedures CT cardiac scoring wo IV contrast Vickey Del Toro MD [address] [place] [address] Referral ID Status Reason Start Date Expiration Date Visits Requested Visits Authorized [id number] Pending Review Perform Procedure 03/27/2024 03/27/2025 1 [...] or prosecute any alcohol or drug abuse patient.[facility] the event this information is protected by the Federal Confidentiality of Alcohol and Drug Abuse Patient Records regulations: The Federal rules restrict any use of the information to criminally investigate or prosecute any alcohol or drug abuse patient.[facility] the event this information is protected by the Federal Confidentiality of Alcohol and Drug Abuse Patient Records regulations: The Federal rules restrict any use of the information to criminally investigate or prosecute any alcohol or drug abuse patient.[facility] the event this information is protected by the Federal Confidentiality of Alcohol and Drug Abuse Patient Records regulations: The Federal rules restrict any use of the information to criminally investigate or prosecute any alcohol or drug abuse patient.[facility] the event this information is protected by the Federal Confidentiality of Alcohol and Drug Abuse Patient Records regulations: The Federal rules restrict any use of the information to criminally investigate or prosecute any alcohol or drug abuse patient.[facility] the event this information is protected by the Federal Confidentiality of Alcohol and Drug Abuse Patient Records regulations: The Federal rules restrict any use of the information to criminally investigate or prosecute any alcohol or drug abuse patient.[facility] the event this information is protected by the Federal Confidentiality of Alcohol and Drug Abuse Patient Records regulations: The Federal rules restrict any use of the information to criminally investigate or prosecute any alcohol or drug abuse patient.[facility] the event this information is protected by the Federal Confidentiality of Alcohol and Drug Abuse Patient Records regulations: The Federal rules restrict any use of the information to criminally investigate or prosecute any alcohol or drug abuse patient.[facility] the event this information is protected by the Federal Confidentiality of Alcohol and Drug Abuse Patient Records regulations: The Federal rules restrict any use of the information to criminally investigate or prosecute any alcohol or drug abuse patient.[facility] the event this information is protected by the Federal Confidentiality of Alcohol and Drug Abuse Patient Records regulations: The Federal rules restrict any use of the information to criminally investigate or prosecute any alcohol or drug abuse patient.[facility] the event this information is protected by the Federal Confidentiality of Alcohol and Drug Abuse Patient Records regulations: The Federal rules restrict any use of the information to criminally investigate or prosecute any alcohol or drug abuse patient.[facility] the event this information is protected by the Federal Confidentiality of Alcohol and Drug Abuse Patient Records regulations: The Federal rules restrict any use of the information to criminally investigate or prosecute any alcohol or drug abuse patient.[facility] the event this information is protected by the Federal Confidentiality of Alcohol and Drug Abuse Patient Records regulations: The Federal rules restrict any use of the information to criminally investigate or prosecute any alcohol or drug abuse patient.[facility] Reason for Visit (unrecogniz ed section and [...] MD [address] [place] [address] Referral ID Status Reason Start Date Expiration Date Visits Requested Visits Authorized [id number] Pending Review Perform Procedure 03/27/2024 03/27/2025 1 1 Reason Comments Yearly Exam With Mammogram Care Teams (unrecognized sec tion and content) Computer Applications Developer Relationship Specialty Start Date End Date Vickey Del Toro MD [address] [place], [place] [id number] PCP - General Family Practice 02/03/16 Computer Applications Developer Relationship Specialty Start Date End Date Vickey Del Toro MD [address] [place], [place] [id number] PCP - General Family Medicine 02/03/16 Computer Applications Developer Relationship Specialty Start Date End Date Vickey Del Toro MD [address] [place] [address] PCP - General Family Medicine 02/03/16 Computer Applications Developer Relationship Specialty Start Date End Date Vickey Del Toro MD [address] [place] [address] PCP - General Family Medicine 02/03/16 Computer Applications Developer Relationship Specialty Start Date End Date Vickey Del Toro MD [address] [place] [address] PCP - General Family Medicine 02/03/16 Computer Applications Developer Relationship Specialty Start Date End Date Vickey Del Toro MD [address] [place] [address] PCP - General Family Medicine 02/03/16 Computer Applications Developer Relationship Specialty Start Date End Date Vickey Del Toro MD [address] [place] [address] PCP - General Family Medicine 02/03/16 Computer Applications Developer Relationship Specialty Start Date End Date Vickey Del Toro MD [address] [place] [address] PCP - General Family Medicine 02/03/16 Computer Applications Developer Relationship Specialty Start Date End Date Vickey Del Toro MD [address] [place] [address] PCP - General Family Medicine 02/03/16 Computer Applications Developer Relationship Specialty Start Date End Date Vickey Del Toro MD [address] [place] [address] PCP - General Family Medicine 04/11/24 Computer Applications Developer Relationship Specialty Start Date End Date Vickey Del Toro MD [address] [place] [address] PCP - General Family Medicine 02/03/16 Computer Applications Developer Relationship Specialty Start Date End Date Vickey Del Toro MD [address] [place] [address] PCP - General Family Medicine 02/03/16 INFORMATION SOURCE (unrecogn ized section and content) DATE CREATED AUTHOR 04/24/2024 [facility] DATE CREATED AUTHOR AUTHOR'S ORGANIZ ATION 01/13/2025 [facility] DATE CREATED AUTHOR AUTHOR'S ORGANIZ [...] BE BASED ON THE PRIMARY CLINICAL RECORDS. [employer] provides no warranty or guarantee of the accuracy or completeness of information in this document.
== END | disposition home or self-care (01) ==
LOC: US 07:33
PROVIDERS: PCP Family Medicine; Referring Provider Family Medicine; Visit Provider Family Medicine
DX: R74.8 Abnormal levels of other serum enzymes (principal)
CPT/HCPCS: 76705

== ENCOUNTER 2025-04-15 13:39 | Emergency (ER) | payer OTHER, SELFPAY ==
[2025-04-15] VITALS (9 sets, daily range): BP systolic 135–166; BP diastolic 56–85; PULSE 62–86; RESP 16–19; TEMP 36.6–36.9; O2SAT 97–100; BMI 39.1
--- NOTE | 2025-04-15 13:50 | ED.RN ---
PT IS SLOW TO ANSWER BUT ANSWERS CORRECTLY. PT SCORES O=0 WITH NIH SCALE. PT HAS CURRENT C/O HEADACHE AND WEAKNESS.
--- NOTE | 2025-04-15 14:13 | EX.ED.DYSGE1 ---
HPI History of Present Illness Chief Complaint: Syncope Onset/Context/Timing Onset: Today Context: Gradual Onset Timing: Continuous Quality: Dull Location: Frontal and occipital Worsened by: Opening her eyes Relieved by: Nothing Narrative Narrative: Patient presents with a headache that began today. Patient states she was at CPR class and started having some nausea. Patient states she felt hot. Patient states she then developed a headache. Patient states the pain is mainly over the frontal area. Patient states she did have some occipital headache but this has improved. Patient admits to some nausea and vomiting. Patient admits to some tingling in her right hand. Patient states this has resolved as well. Patient also admits to some photophobia. Patient denies any neck pain. [facility] Medical History DIMA (generalized anxiety disorder) Unspecified psychosis Hypertension Positive colorectal cancer screening using Cologuard test Home Medications ?Medication ?Instructions ?Recorded ?Last Taken ?Type calcium 600 mg (as carbonate)-vit 1 tablet PO DAILY 11/20/20 Unknown History D3 10 mcg (400 unit) chewable tablet (Calcium 600 with Vitamin D3) Cholecalciferol (Vitamin D3) 1 tablet PO DAILY 11/27/20 Unknown History [Vitamin D3] multivitamin 1 each PO DAILY 11/27/20 Unknown History lisinopril 20 mg tablet 40 mg PO DAILY 03/27/23 Unknown History pantoprazole 40 mg tablet,delayed mg PO 03/27/23 Unknown History release hydrochlorothiazide 12.5 mg capsule 25 mg PO 07/29/24 Unknown History turmeric root extract 500 mg 500 mg PO QDAY 07/29/24 Unknown History capsule aripiprazole 15 mg tablet See Rx Instructions .Route 10/30/24 Unknown Rx .COMPLEX #90 tabs escitalopram oxalate 20 mg tablet See Rx Instructions .Route 01/15/25 Unknown Rx .COMPLEX #90 tabs trazodone 100 mg tablet 100 mg PO QHS PRN sleep #90 tabs 01/15/25 Unknown Rx Allergy/AdvReac Type Severity Reaction Status Date / Time No Known Allergies Allergy Verified 04/15/25 13:45 Family History Father Heart disease Hypertension Mother Hypertension Heart disease High cholesterol Brother High cholesterol Surgical History Hx of fracture of arm History of Social History Smoking Status: Never smoker second hand exposure: No alcohol intake: never substance use type: does not use caffeine: Yes what type of physical activity do you participate in: walking frequency: 3-4 times per week ROS ROS ED Constitutional Constitutional ED: Reports sweats; Denies chills or fever(s) Eyes Eyes: Denies blurry vision or change in vision ENT ENT ED: Denies rhinorrhea or sore throat Cardiovascular Cardiovascular: Denies chest pain or palpitations Respiratory/Chest Respiratory/Chest: Reports cough; Denies dyspnea Gastrointestinal Gastrointestinal: Reports nausea and vomiting Genitourinary Genitourinary ED: Reports hematuria; Denies dysuria Musculoskeletal Musculoskeletal: Denies back pain or neck pain Integumentary Denies abscess or rash Neurologic Neurologic: Reports headache(s) and paresthesias RUE (Right hand); Denies weakness Allergic/Immunologic Allergic/Immunologic ED: Denies mouth swelling or urticaria EXAM Physical Exam Const Vital Signs: 04/15/25 13:42 04/15/25 13:46 04/15/25 15:08 Temperature 98.4 F Temperature Source Oral Pulse Rate 62 Respiratory Rate 16 Respiratory Effort Normal Respiratory Pattern Normal Blood Pressure 166/79 H Blood Pressure Mean 108 Pulse Ox 97 99 Oxygen Delivery Method Room Air Room Air 04/15/25 15:26 04/15/25 15:43 04/15/25 15:53 Temperature Temperature Source Pulse Rate 84 84 77 Respiratory Rate 18 17 16 Respiratory Effort Respiratory Pattern Blood Pressure 160/56 H 135/77 H 146/80 H Blood Pressure Mean 90 96 102 Pulse Ox 99 98 100 Oxygen Delivery Method Room Air Room Air Room Air 04/15/25 16:23 04/15/25 16:30 04/15/25 16:45 Temperature Temperature Source Pulse Rate 86 76 82 Respiratory Rate 17 19 H 18 Respiratory Effort Respiratory Pattern Blood Pressure 149/85 H 154/81 H 143/79 H Blood Pressure Mean 106 105 100 Pulse Ox 99 99 98 Oxygen Delivery Method Room Air Room Air Room Air 04/15/25 16:58 Temperature 97.9 F Temperature Source Pulse Rate 80 Respiratory Rate 17 Respiratory Effort Respiratory Pattern Blood Pressure 143/79 H Blood Pressure Mean 100 Pulse Ox 99 Oxygen Delivery Method Positive well nourished and well developed Constitutional Narrative: BMI is 39.1. General Appearance ED: well developed and NAD HEENT Reports moist mucous membranes Eyes PERRL and EOMs intact bilaterally Neck supple and no JVD Resp normal respiratory effort and clear to auscultation bilaterally Cardio regular rate and regular rhythm GI non-tender and non-distended Palpation: soft Extremity normal to inspection General Extremety ED: Negative for edema or tenderness General Extremity: Negative for edema Neuro oriented x3, CN's II-XII intact bilaterally and no sensory deficits noted Sensorium / Orientation: alert Motor Exam: strength 5/5 throughout Psych mental status grossly normal MDM MDM MDM Narrative Medical decision making narrative: Differential diagnosis includes intracranial bleeding, migraine headache, tension headache, viral illness, and hypertensive urgency. CT scan of the brain will be obtained to assess for intracranial bleeding and stroke. CBC will be obtained to assess for leukocytosis and anemia. Basic metabolic profile will be obtained to assess for electrolyte abnormality renal function. PT with INR and PTT will be obtained to assess for coagulopathy. Lab Data Lab results narrative: CBC was reviewed. There is a mild anemia with a hemoglobin of 11.0 and hematocrit 34.2. PT with INR and PTT were reviewed and were within normal limits. Labs: Laboratory Results - last 24 hr 04/15/25 14:44 WBC 7.2 RBC 3.93 L Hgb 11.0 L Hct 34.2 L MCV 87.0 MCH 28.0 MCHC 32.2 RDW Std Deviation 55.7 H RDW Coeff of Hiram 17.5 H Plt Count 287 MPV 8.2 Immature Gran % (Auto) 0.600 Neut % (Auto) 47.8 Lymph % (Auto) 37.6 [place] % (Auto) 13.2 H Eos % (Auto) 0.4 Baso % (Auto) 0.4 Absolute Neuts (auto) 3.5 Absolute Lymphs (auto) 2.71 Nucleated RBC % 0 Differential Comment SCANNED Platelet Estimate ADEQUATE PT 12.6 INR 0.9 APTT 22.9 L Sodium 137 Potassium 3.2 L Chloride 97 L Carbon Dioxide 23.4 Anion Gap 16 H BUN 11 Creatinine 0.97 Estim Creat Clear Calc 80.43 Est GFR (MDRD) Non-Af 69 BUN/Creatinine Ratio 11.6 Glucose 138 H Calcium 9.1 Radiography Diagnostic Testing: Clinical Impression(s) from Imaging Studies Brain CT 04/15/25 14:30 IMPRESSION: Small left subdural acute hematoma overlying the left frontal parietal and temporal lobes as described with mild mass effect. The thickest portion measures 7.6 mm. Shift of the midline from [id number] Red Alert: Acute left subdural hematoma The critical information above was relayed directly by me by telephone to Angel Gaitan on 04/15/2025 at 3:18 pm with readback verification. Reading Location: [facility]1 CT scan of the brain was obtained. There is an acute subdural hematoma on the left. There is midline shift. This was interpreted by the radiologist and was also independently reviewed by myself. Treatment and Re-Evaluation :: Patient was given IV fluids. Patient was advised of her findings. Patient and spouse initially requested to go to [facility]. However, there is a 4-day wait on ICU beds there. Patient was agreeable to go to [facility]. Case was discussed with the transfer center at [facility]. Patient was accepted to the service of Dr. Taylor. Patient will be transferred there when ambulance becomes available. Patient and spouse understood and were agreeable with the plan. All questions were answered. Critical Care Time Critical Care Time: Yes Critical care time (excluding procedures): 30-74 minutes (34), Including time spent:, Discussing w/Patient &/or Family/Acid Supervisor, Discussing w/Consultants, Arranging Admission or Transfer and Performing Direct Patient Care at Bedside Discharge Plan Triage Chief Complaint: Syncope Other Complaint: Weakness ED Provider: Angel Gaitan Dx/Rx/DC Orders Clinical Impression: Acute subdural hematoma, Elevated blood pressure reading, Headache Prescriptions: No Action Calcium 600 with Vitamin D3 600 mg(1,500mg) -400 unit tablet,chewable 1 tablet PO DAILY lisinopril 20 mg tablet 40 mg PO DAILY pantoprazole 40 mg tablet,delayed release (DR/EC) PO hydrochlorothiazide 12.5 mg capsule 25 mg PO turmeric root extract 500 mg capsule 500 mg PO QDAY aripiprazole 15 mg tablet See Rx Instructions .ROUTE .COMPLEX Qty: 90 1RF Dose Instruction: TAKE 1 TABLET AT BEDTIME Rx Instructions: TAKE 1 TABLET AT BEDTIME multivitamin 1 EACH tablet 1 each PO DAILY Cholecalciferol (Vitamin D3) [Vitamin D3] 5,000 UNIT capsule 1 tablet PO DAILY trazodone 100 mg tablet 100 mg PO QHS PRN (Reason: sleep) Qty: 90 1RF escitalopram oxalate 20 mg tablet See Rx Instructions .ROUTE .COMPLEX Qty: 90 1RF Dose Instruction: TAKE 1 TABLET DAILY Rx Instructions: TAKE 1 TABLET DAILY Primary Care Provider: Tung Del Toro Referrals: Tung Del Toro MD [Primary Care Provider] - Print Language: Peruvian Disposition Disposition: Acute Care Hospital Discharge Location: [facility] Discharge Date/Time: 04/15/25 17:01
--- NOTE | 2025-04-15 14:30 | CT_ITS ---
PROCEDURE: BRAIN/HEAD WITHOUT CONTRAST N/A REASON FOR EXAM: HEADACHE Weakness and lethargy. TECHNIQUE: BRAIN/HEAD WITHOUT CONTRAST Coronal and Sagittal reconstruction series were provided. One or more dose reduction techniques were used (e.g., Automated exposure control, adjustment of the mA and/or kV according to patient size, use of iterative reconstruction technique. RADIATION DOSE SUMMARY: CTDlvol: 44.99 mGy DLP: 745.49 mGycm COMPARISON: None FINDINGS: Brain: There is evidence of an acute left-sided subdural hematoma overlying the left frontal parietal and occipital lobes. The thickest part of the subdural measures 7.6 mm. Shift of the midline from [id number]-[id number] of 4.9 mm. CSF Spaces: No evidence of hydrocephalus. Thickening of the cerebral falx anteriorly suggestive of possible subdural hematoma. Sinuses/Mastoids: Clear at visualized levels Bones: No fracture. CT/Brain/Head without Contrast IMPRESSION: Small left subdural acute hematoma overlying the left frontal parietal and temp oral lobes as described with mild mass effect. The thickest portion measures 7.6 mm. Shift of the midline from [id number] Red Alert: Acute left subdural hematoma The critical information above was relayed directly by me by telephone to Angel Kearns on 04/15/2025 at 3:18 pm with readback verification. Reading Location: [place] [id number]
[2025-04-15] MEDS: 0.9% Normal Saline (1000mL) 1,000 ML 1000 ML IV (14:42)
[2025-04-15 14:52] LABS: Hematocrit 34.2 % (37-47); Hemoglobin 11.0 g/dL (12.0-15.0); Immature Granulocytes Count 0.040 X10^3/uL (0.0-0.0); Mean Corp Hgb Conc 32.2 g/dL (32-36); Mean Corpuscular Volume 87.0 fL (81-99); Mean Platelet Vol. 8.2 fl (6.2-12.0); NRBC Flagged by Analyzer 0 % (0-5); POSITIVE MORPHOLOGY YES; Platelet Count 287 K/mm3 (150-450); RBC Distribution Width CV 17.5 % (11.6-14.6); RBC Distribution Width SD 55.7 fl (35.1-43.9); Red Blood Count 3.93 M/mm3 (4.2-5.4); White Blood Count 7.2 K/mm3 (4.4-11.0)
[2025-04-15 14:56] LABS: Differential Indicated SCAN CRITERIA MET
[2025-04-15 14:57] LABS: Prothrombin Time (Protime)PT. 12.6 SECONDS (11.7-14.9)
[2025-04-15 14:58] LABS: Partial Thromboplast Time 22.9 Seconds (24.1-36.2)
[2025-04-15 15:26] LABS: Differential Comment SCANNED
[2025-04-15 15:31] LABS: Anion Gap 16 (5-15); BUN 11 mg/dL (4-19); BUN/Creat Ratio 11.6 RATIO (10-20); Calcium,Total 9.1 mg/dL (7.6-11.0); Carbon Dioxide 23.4 mmol/L (21.0-32.0); Chloride 97 mmol/L (98-108); Estimated Creatinine Clearance 80.43 ml/min (50-250); Glucose 138 mg/dL (70-99); Potassium 3.2 mmol/L (3.3-5.1)
== END 2025-04-15 17:01 | disposition short-term general hospital (02) ==
PROVIDERS: Emergency Provider Emergency Medicine; PCP Family Medicine; Visit Provider Emergency Medicine
DX: I62.01 Nontraumatic acute subdural hemorrhage (principal); I10 Essential (primary) hypertension; Z79.899 Other long term (current) drug therapy
CPT/HCPCS: 51702; 70450; 80048; 85025; 85610; 85730; 96360; 99285; A4216